=== PATIENT | female | born 1995 | race Hispanic/Latino ===

== ENCOUNTER 2018-10-09 09:28 | Emergency (ER) | payer OTHER ==
[2018-10-09 10:13] LABS: Absolute Lymphocytes (CBC) 1.4 K/uL (0.7-4.9); Absolute Monocytes 0.2 K/uL (0.1-1.3); Absolute Neutrophil 3.4 K/uL (1.8-8.0); Basophils % 0.7 % (0-1.3); Eosinophils % 2.2 % (0-4.4); Hematocrit 37.3 % (36.0-45.0); Lymphocytes % 27.5 % (15.3-44.8); MCH 25.7 pg (27.0-35.0); MCV 79.6 fL (80-100); MPV 10.2 fL (7.6-11.3); Monocytes % 4.7 % (3.3-12.3); RBC Red Blood Cell Count 4.69 M/uL (3.86-4.86)
[2018-10-09 10:44] LABS: BUN Blood Urea Nitrogen 8 mg/dL (7-18); Bicarbonate 24 mmol/L (21-32); Glucose Level 102 mg/dL (74-106); HCG, Quantitative 32919 mIU/mL (1-3); Potassium 3.8 mmol/L (3.5-5.1); Sodium Level 137 mmol/L (136-145)
--- NOTE | 2018-10-09 11:57 | ER ---
Nurse's Notes [facility] Name: Krishan Damian Age: 23 yrs Sex: Female : 1995 Arrival Date: 10/09/2018 Time: 09:31 Bed 5 Private MD: None, None Diagnosis: Threatened Presentation: 10/09 09:43 Presenting complaint: Patient states: is approx 13 weeks , had US to confirm iw on , started having heavy bleeding and cramping yesterday, bleeding has slowed down but still having pain today. Transition of care: patient was not received from another setting of care. Onset of symptoms was October 08, 2018. Risk Assessment: Do you want to hurt yourself or someone else? Patient reports no desire to harm self or others. Initial Sepsis Screen: Does the patient meet any 2 criteria? No. Patient's initial sepsis screen is negative. Does the patient have a suspected source of infection? No. Patient's initial sepsis screen is negative. Care prior to arrival: None. 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 - Social history:: Smoking status: Patient/guardian denies using tobacco. - Ebola Screening: : Patient negative for fever greater than or equal to 101.5 degrees Fahrenheit, and additional compatible Ebola Virus Disease symptoms Patient denies exposure to infectious person Patient denies travel to an Ebola-affected area in the 21 days before illness onset No symptoms or risks identified at this time. Screenin:00 Abuse screen: Denies threats or abuse. Denies injuries from another. Nutritional jl7 screening: No deficits noted. Tuberculosis screening: No symptoms or risk factors identified. Fall Risk IV access (20 points). Total Carvalho Fall Scale indicates No Risk (0-24 pts). Assessment: 10:00 General: Appears in no apparent distress. uncomfortable, Behavior is calm, cooperative, jl7 appropriate for age. Pain: Complains of pain in right lower quadrant and left lower quadrant Quality of pain is described as crampy, Pain began 2-3 days ago. Is continuous. Neuro: Level of Consciousness is awake, alert, obeys commands, Oriented to person, place, time, situation. Cardiovascular: Patient's skin is warm and dry. Respiratory: Airway is patent Respiratory effort is even, unlabored, Respiratory pattern is regular, symmetrical. GI: No signs and/or symptoms were reported involving the gastrointestinal system. : Urine is cloudy, Reports vaginal bleeding that is since Thursday. Derm: Skin is pink, warm \T\ dry. 11:00 Reassessment: No changes from previously documented assessment. Patient and/or family jl7 updated on plan of care and expected duration. Pain level reassessed. Patient is alert, oriented x 3, equal unlabored respirations, skin warm/dry/pink. Vital Signs: 09:45 BP 123 / 56; Pulse 83; Resp 16; Temp 98.2; Pulse Ox 100% on R/A; Weight 123.83 kg; iw Height 5 ft. 2 in. (157.48 cm); Pain 6/10; 11:48 BP 117 / 65; Pulse 72; Resp 16 S; Pulse Ox 100% on R/A; jl7 09:45 Body Mass Index 49.93 (123.83 kg, 157.48 cm) iw ED Course: 09:31 Patient arrived in ED. mr 09:31 None, None is Private Physician. mr 09:37 Stevie Weir PA is PHCP. jr8 09:37 Sriram Long MD is Attending Physician. jr8 09:40 Tommy Olivas RN is Primary Nurse. jl7 09:45 Triage completed. iw 09:45 Arm band placed on. iw 10:00 Patient has correct armband on for positive identification. Placed in gown. Bed in low jl7 position. Call light in reach. Side rails up X 1. Pulse ox on. NIBP on. Warm blanket given. 10:00 Initial lab(s) drawn, by me, sent to lab. Inserted saline lock: 22 gauge in right jl7 antecubital area, using aseptic technique. Blood collected. 11:41 Ultrasound completed. Patient tolerated well. sg3 11:48 Awaiting radiology results. jl7 11:49 US Transvaginal Ob In Process Unspecified. EDMS 12:08 No provider procedures requiring assistance completed. IV discontinued, intact, jl7 bleeding controlled, No redness/swelling at site. Pressure dressing applied. Administered Medications: No medications were administered Outcome: 11:57 Discharge ordered by . zeb 12:08 Discharged to home ambulatory. jlTrell 12:08 Condition: stable 12:08 Discharge instructions given to patient, family, Instructed on discharge instructions, follow up and referral plans. Demonstrated understanding of instructions, follow-up care. 12:12 Patient left the ED. [email or web address] Signatures: Dispatcher [employer] EDOK Eva Mota Irene, RN Stevie Hinson PA PA jr8 Leal, Jahala, RN RN jl7 Sujatha Monteiro sg3
--- NOTE | 2018-10-09 11:58 | EDPHYS ---
Physician Documentation [facility] Name: Krishan Damian Age: 23 yrs Sex: Female : 1995 Arrival Date: 10/09/2018 Time: 09:31 Bed 5 Private MD: None, None ED Physician Sriram Long HPI: 10/09 10:41 This 23 yrs old Female presents to ER via Ambulatory with complaints of 13 wks jr8 , Vaginal Bleeding. 10:41 The patient presents to the emergency department with abdominal pain, of the lower jr8 abdomen, described as crampy, vaginal bleeding, that is light, with clots. The estimated gestational age is 13 weeks. course: care: private OB physician. Previous pregnancies: in previous pregnancies patient has had. Associated signs and symptoms: The patient has no apparent associated signs or symptoms. The patient has not experienced similar symptoms in the past. The patient has not recently seen a physician. 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 - Social history:: Smoking status: Patient/guardian denies using tobacco. - Ebola Screening: : Patient negative for fever greater than or equal to 101.5 degrees Fahrenheit, and additional compatible Ebola Virus Disease symptoms Patient denies exposure to infectious person Patient denies travel to an Ebola-affected area in the 21 days before illness onset No symptoms or risks identified at this time. ROS: 10:41 Eyes: Negative for injury, pain, redness, and discharge, ENT: Negative for injury, jr8 pain, and discharge, Neck: Negative for injury, pain, and swelling, Cardiovascular: Negative for chest pain, palpitations, and edema, Respiratory: Negative for shortness of breath, cough, wheezing, and pleuritic chest pain, Back: Negative for injury and pain, MS/Extremity: Negative for injury and deformity, Skin: Negative for injury, rash, and discoloration, Neuro: Negative for headache, weakness, numbness, tingling, and seizure. 10:41 Abdomen/GI: Positive for abdominal cramps, Negative for nausea, vomiting, and diarrhea. 10:41 : Positive for vaginal bleeding. Exam: 10:41 Eyes: Pupils equal round and reactive to light, extra-ocular motions intact. Lids and jr8 lashes normal. Conjunctiva and sclera are non-icteric and not injected. Cornea within normal limits. Periorbital areas with no swelling, redness, or edema. ENT: Nares patent. No nasal discharge, no septal abnormalities noted. Tympanic membranes are normal and external auditory canals are clear. Oropharynx with no redness, swelling, or masses, exudates, or evidence of obstruction, uvula midline. Mucous membranes moist. Neck: Trachea midline, no thyromegaly or masses palpated, and no cervical lymphadenopathy. Supple, full range of motion without nuchal rigidity, or vertebral point tenderness. No Meningismus. Cardiovascular: Regular rate and rhythm with a normal S1 and S2. No gallops, murmurs, or rubs. Normal PMI, no JVD. No pulse deficits. Respiratory: Lungs have equal breath sounds bilaterally, clear to auscultation and percussion. No rales, rhonchi or wheezes noted. No increased work of breathing, no retractions or nasal flaring. Abdomen/GI: Soft, non-tender, with normal bowel sounds. No distension or tympany. No guarding or rebound. No evidence of tenderness throughout. Back: No spinal tenderness. No costovertebral tenderness. Full range of motion. Skin: Warm, dry with normal turgor. Normal color with no rashes, no lesions, and no evidence of cellulitis. MS/ Extremity: Pulses equal, no cyanosis. Neurovascular intact. Full, normal range of motion. Neuro: Awake and alert, GCS 15, oriented to person, place, time, and situation. Cranial nerves II-XII grossly intact. Motor strength 5/5 in all extremities. Sensory grossly intact. Cerebellar exam normal. Normal gait. Vital Signs: 09:45 BP 123 / 56; Pulse 83; Resp 16; Temp 98.2; Pulse Ox 100% on R/A; Weight 123.83 kg; iw Height 5 ft. 2 in. (157.48 cm); Pain 6/10; 11:48 BP 117 / 65; Pulse 72; Resp 16 S; Pulse Ox 100% on R/A; jl7 09:45 Body Mass Index 49.93 (123.83 kg, 157.48 cm) iw MDM: 09:37 Patient medically screened. jr8 11:57 Data reviewed: vital signs, nurses notes, lab test result(s), radiologic studies, jr8 ultrasound, and as a result, I will discharge patient. Data interpreted: Pulse oximetry: on room air is 100 %. Interpretation: normal. Counseling: I had a detailed discussion with the patient and/or guardian regarding: the historical points, exam findings, and any diagnostic results supporting the discharge/admit diagnosis, lab results, radiology results, the need for outpatient follow up, an OB/Gyne specialist, to return to the emergency department if symptoms worsen or persist or if there are any questions or concerns that arise at home. 10/09 09:45 Order name: Quantitative Hcg; Complete Time: 10:47 10/09 09:45 Order name: Abo/rh Typing; Complete Time: 10:25 10/09 09:45 Order name: Basic Metabolic Panel; Complete Time: 10:47 10/09 09:45 Order name: CBC with Diff; Complete Time: 10:25 10/09 09:56 Order name: Urine Dipstick--Ancillary (enter results) eb 10/09 09:56 Order name: Urine --Ancillary (enter results) eb 10/09 09:45 Order name: Urine Test (obtain specimen); Complete Time: 10:39 10/09 09:45 Order name: IV Saline Lock; Complete Time: 10:39 10/09 09:45 Order name: Labs collected and sent; Complete Time: 10:39 10/09 09:45 Order name: NPO; Complete Time: 10:39 10/09 09:45 Order name: Urine Dipstick-Ancillary (obtain specimen); Complete Time: 10:39 10/09 10:48 Order name: US Transvaginal Ob jr8 Administered Medications: No medications were administered Disposition: 16:35 Co-signature as Attending Physician, Sriram Long MD. Disposition: 10/09/18 11:57 Discharged to Home. Impression: Threatened . - Condition is Stable. - Discharge Instructions: Threatened Miscarriage, Vaginal Bleeding During , First Trimester, Pelvic Rest. - Medication Reconciliation Form, Thank You Letter, Antibiotic Education, Prescription Opioid Use form. - Follow up: Private Physician; When: 2 - 3 days; Reason: Recheck today's complaints, Continuance of care, Re-evaluation by your physician. - Problem is new. - Symptoms have improved. Signatures: Dispatcher [employer] EDMS Soumya Lutz RN RN Stevie Mclean PA PA jr8 Tommy Olivas RN RN jl7 Sriram Long MD MD gs Corrections: (The following items were deleted from the chart) 12:12 11:57 10/09/2018 11:57 Discharged to Home. Impression: Threatened . Condition jl7 is Stable. Forms are Medication Reconciliation Form, Thank You Letter, Antibiotic Education, Prescription Opioid Use. Follow up: Private Physician; When: 2 - 3 days; Reason: Recheck today's complaints, Continuance of care, Re-evaluation by your physician. Problem is new. Symptoms have improved. jr8
[2018-10-09 12:18] VITALS: TEMP 98.2; O2SAT 100
[2018-10-09 12:19] VITALS: BP 117/65
[2018-10-09 12:37] LABS: Urine Blood 2+ (NEG); Urine Glucose NEGATIVE (NEG); Urine Protein NEGATIVE (NEG)
--- NOTE | 2018-10-09 12:40 | RAD REPORT ---
EXAM DESCRIPTION: US - Transvaginal OB - 10/09/2018 11:50 am CLINICAL HISTORY: with vaginal bleeding COMPARISON: None. FINDINGS: The uterus measures 12 x 7 x 8 centimeters. A gestational sac is present within the endom etrium. Within this is a yolk sac and pole with a crown-rump length 4.6centimeters. Cardiac act ivity 157 beats per minute The left ovary is normal in size and echotexture containing a small follicle. The right ovary is not seen. No significant free fluid is seen. IMPRESSION: Single live intrauterine with an estimated gestational age 11 weeks 3 days ED D 04/27/2019
== END 2018-10-09 12:12 | disposition home or self-care (01) ==
LOC: ER 09:28
DX: O20.0 Threatened abortion (principal); O99.511 Diseases of the respiratory system complicating pregnancy, first trimester; J45.909 Unspecified asthma, uncomplicated; Z3A.13 13 weeks gestation of pregnancy; Z79.899 Other long term (current) drug therapy
CPT/HCPCS: 36415; 76817; 80048; 81003; 81025; 84702; 85025; 86900; 86901; 99284

== ENCOUNTER 2019-02-16 20:22 | Emergency (ER) | payer OTHER ==
--- OUTSIDE RECORDS SUMMARY | 2019-02-16 20:54 | XMS REPORT ---
:1995 [facility] Address [address] [place] [address] Dr. Waters [address] [place] [id number] Care Team Providers Name Role Phone Unavailable Unavailable Unavailable Problems This patient has no known problems. Allergies, Adverse Reactions, Alerts This patient has no known allergies or adverse reactions. Medications This patient has no known medications.
--- NOTE | 2019-02-16 21:07 | ER ---
Nurse's Notes [facility] Name: Krishan Damian Age: 23 yrs Sex: Female : 1995 Arrival Date: 02/16/2019 Time: 20:28 Bed DIS1 Private MD: Sandra eHin C Diagnosis: Gingivitis and periodontal diseases;Stomatitis and related lesions Presentation: 02/16 20:50 Presenting complaint: Mother states: Mouth sores and severe sore throat for 1 week. tl2 Tested for strep one week ago and it was negative. Pt states she cant eat or drink anything. Reports low grade fever and vomiting. Transition of care: patient was not received from another setting of care. Onset of symptoms was February 09, 2019. Risk Assessment: Do you want to hurt yourself or someone else? Patient reports no desire to harm self or others. Initial Sepsis Screen: Does the patient meet any 2 criteria? No. Patient's initial sepsis screen is negative. Does the patient have a suspected source of infection? No. Patient's initial sepsis screen is negative. Care prior to arrival: None. 20:50 Method Of Arrival: Ambulatory tl2 20:50 Acuity: CRISTHIAN 4 tl2 Triage Assessment: 20:52 General: Appears in no apparent distress. uncomfortable, Behavior is calm, cooperative, tl2 appropriate for age. 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 - Social history:: Smoking status: Patient/guardian denies using tobacco. - Ebola Screening: : No symptoms or risks identified at this time. Screenin:00 Abuse screen: Denies threats or abuse. Denies injuries from another. Nutritional lp1 screening: No deficits noted. Tuberculosis screening: No symptoms or risk factors identified. Fall Risk None identified. Assessment: 20:54 Respiratory: Respiratory effort is. tl2 21:00 General: Appears in no apparent distress. Behavior is appropriate for age. Pain: lp1 Complains of pain in mouth. Neuro: Level of Consciousness is awake, alert, obeys commands. Cardiovascular: No deficits noted. Respiratory: Airway is patent Respiratory effort is even, unlabored, Respiratory pattern is regular. GI: Reports nausea. : No signs and/or symptoms were reported regarding the genitourinary system. EENT: Lesions noted. Throat is clear. Derm: Skin is pink, warm \T\ dry. Musculoskeletal: No deficits noted. Vital Signs: 20:52 BP 130 / 86; Pulse 103; Resp 20; Temp 98.7(O); Pulse Ox 99% on R/A; Weight 126.55 kg; tl2 Height 5 ft. 2 in. (157.48 cm); Pain 8/10; 20:52 Body Mass Index 51.03 (126.55 kg, 157.48 cm) tl2 ED Course: 20:28 Patient arrived in ED. am2 20:28 Sandra Hein FNP is Private Physician. am2 20:33 Zahida Sanches FNP-C is [facility]. snw 20:33 Av Moon MD is Attending Physician. snw 20:51 Triage completed. tl2 20:52 Arm band placed on right wrist. tl2 21:00 Patient has correct armband on for positive identification. lp1 21:00 No provider procedures requiring assistance completed. Patient did not have IV access lp1 during this emergency room visit. 21:06 Melanie Babcock, RN is Primary Nurse. lp1 Administered Medications: 21:25 Drug: GI Cocktail without - (Maalox Suspension 30 ml, Lidocaine Liquid 2 % 15 lp1 ml) Route: PO; 21:35 Follow up: Response: No adverse reaction; Marked relief of symptoms lp1 Outcome: 21:06 Discharge ordered by . snw 21:30 Discharged to home ambulatory. lp1 21:30 Condition: good 21:30 Discharge instructions given to patient, Instructed on discharge instructions, follow up and referral plans. medication usage, Demonstrated understanding of instructions, follow-up care, medications, Prescriptions given X 1. 21:35 Patient left the ED. lp1 Signatures: Zahida Sanches FNP-C MEDICAL AIDE-CsnMelanie Martinez RN RN lp1 Susan Weinstein RN RN tl2 Falguni Madrid am2 Corrections: (The following items were deleted from the chart) 22:11 22:10 Patient left the ED. lp1 lp1
--- NOTE | 2019-02-16 21:07 | EDPHYS ---
Physician Documentation [facility] Name: Krishan Damian Age: 23 yrs Sex: Female : 1995 Arrival Date: 02/16/2019 Time: 20:28 Bed DIS1 Private MD: Sandra Hein C ED Physician Av Moon HPI: 02/16 21:14 This 23 yrs old Female presents to ER via Ambulatory with complaints of Sore snw Throat, Mouth Problem - sores, Fever. 21:14 The patient presents with sore throat. The patient describes throat pain as raw. Onset: snw The symptoms/episode began/occurred 1 week(s) ago, and became persistent. Severity of symptoms: At their worst the symptoms were moderate. Associated signs and symptoms: Pertinent positives: dysphagia. It is unknown whether or not the patient has had similar symptoms in the past, Daughter with similar s/s. The patient has been recently seen by a physician: with similar presenting complaints, lab tests were done, strep negative. 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 - Social history:: Smoking status: Patient/guardian denies using tobacco. - Ebola Screening: : No symptoms or risks identified at this time. ROS: 21:13 Constitutional: Negative for fever, chills, and weight loss, Eyes: Negative for injury, snw pain, redness, and discharge, ENT: Negative for injury and discharge, + mouth pain, ulcers Neck: Negative for injury, pain, and swelling, Cardiovascular: Negative for chest pain, palpitations, and edema, Respiratory: Negative for shortness of breath, cough, wheezing, and pleuritic chest pain, Abdomen/GI: Negative for abdominal pain, nausea, vomiting, diarrhea, and constipation, Back: Negative for injury and pain, : Negative for injury, bleeding, discharge, and swelling, MS/Extremity: Negative for injury and deformity, Skin: Negative for injury, rash, and discoloration, Neuro: Negative for headache, weakness, numbness, tingling, and seizure. Exam: 21:04 Constitutional: This is a well developed, well nourished patient who is awake, alert, snw and in no acute distress. Head/Face: Normocephalic, atraumatic. Eyes: Pupils equal round and reactive to light, extra-ocular motions intact. Lids and lashes normal. Conjunctiva and sclera are non-icteric and not injected. Cornea within normal limits. Periorbital areas with no swelling, redness, or edema. Neck: Trachea midline, no thyromegaly or masses palpated, and no cervical lymphadenopathy. Supple, full range of motion without nuchal rigidity, or vertebral point tenderness. No Meningismus. Chest/axilla: Normal chest wall appearance and motion. Nontender with no deformity. No lesions are appreciated. Cardiovascular: Regular rate and rhythm with a normal S1 and S2. No gallops, murmurs, or rubs. Normal PMI, no JVD. No pulse deficits. Respiratory: Lungs have equal breath sounds bilaterally, clear to auscultation and percussion. No rales, rhonchi or wheezes noted. No increased work of breathing, no retractions or nasal flaring. Abdomen/GI: Soft, non-tender, with normal bowel sounds. No distension or tympany. No guarding or rebound. No evidence of tenderness throughout. Back: No spinal tenderness. No costovertebral tenderness. Full range of motion. Skin: Warm, dry with normal turgor. Normal color with no rashes, no lesions, and no evidence of cellulitis. MS/ Extremity: Pulses equal, no cyanosis. Neurovascular intact. Full, normal range of motion. Neuro: Awake and alert, GCS 15, oriented to person, place, time, and situation. Cranial nerves II-XII grossly intact. Motor strength 5/5 in all extremities. Sensory grossly intact. Cerebellar exam normal. Normal gait. Psych: Awake, alert, with orientation to person, place and time. Behavior, mood, and affect are within normal limits. 21:04 ENT: External ear(s): are unremarkable, Ear canal(s): are normal, TM's: are normal, Nose: is normal, Mouth: Oral mucosa: noted to have obvious stomatitis, Posterior pharynx: Airway: normal, Tonsils: with ulcerations, Uvula: erythema, Voice: is normal. 21:04 ENT: Dental exam: gum swelling, that is severe, diffusely. Vital Signs: 20:52 BP 130 / 86; Pulse 103; Resp 20; Temp 98.7(O); Pulse Ox 99% on R/A; Weight 126.55 kg; tl2 Height 5 ft. 2 in. (157.48 cm); Pain 8/10; 20:52 Body Mass Index 51.03 (126.55 kg, 157.48 cm) tl2 MDM: 20:48 Patient medically screened. snw 21:07 Data reviewed: vital signs, nurses notes. Data interpreted: Pulse oximetry: on room air snw is 99 %. Interpretation: normal. Counseling: I had a detailed discussion with the patient and/or guardian regarding: the historical points, exam findings, and any diagnostic results supporting the discharge/admit diagnosis, the need for outpatient follow up, for definitive care, to return to the emergency department if symptoms worsen or persist or if there are any questions or concerns that arise at home. Special discussion: I have referred the patient to see his PCP for further evaluation of high blood pressure. Based on the history and exam findings, there is no indication for further emergent testing or inpatient evaluation. I discussed with the patient/guardian the need to see the primary care provider for further evaluation of the symptoms. Administered Medications: 21:25 Drug: GI Cocktail without - (Maalox Suspension 30 ml, Lidocaine Liquid 2 % 15 lp1 ml) Route: PO; 21:35 Follow up: Response: No adverse reaction; Marked relief of symptoms lp1 Disposition: 02/17 02:08 Co-signature as Attending Physician, Av Moon MD. rn Disposition: 02/16/19 21:06 Discharged to Home. Impression: Gingivitis and periodontal diseases, Stomatitis and related lesions. - Condition is Stable. - Discharge Instructions: Gingivitis, Stomatitis, Rehydration, Adult, [place] Diet. - Prescriptions for chlorhexidine gluconate 0.12 % Mucous Membrane mouthwash - place 15 milliliter by MUCOUS MEMBRANE route 2 times per day after brushing teeth, swish in mouth for 30 seconds then spit out; 480 milliliter. - Medication Reconciliation Form, Thank You Letter, Antibiotic Education, Prescription Opioid Use form. - Follow up: Private Physician; When: 2 - 3 days; Reason: Recheck today's complaints, Continuance of care, Re-evaluation by your physician. Follow up: Emergency Department; When: As needed; Reason: Worsening of condition. Signatures: Zahida Sanches, BUDGET OFFICER-C BUDGET OFFICER-Csnw Av Moon MD MD rn Melanie Babcock RN RN lp1 Susan Weinstein RN RN tl2 Corrections: (The following items were deleted from the chart) 02/16 22:10 21:06 02/16/2019 21:06 Discharged to Home. Impression: Gingivitis and periodontal lp1 diseases; Stomatitis and related lesions. Condition is Stable. Forms are Medication Reconciliation Form, Thank You Letter, Antibiotic Education, Prescription Opioid Use. Follow up: Private Physician; When: 2 - 3 days; Reason: Recheck today's complaints, Continuance of care, Re-evaluation by your physician. Follow up: Emergency Department; When: As needed; Reason: Worsening of condition. snw
[2019-02-16] MEDS ORDERED: LIDOCAINE VISCOUS 2% SOLN 15 ML UDC ONE (21:27)
[2019-02-16] MEDS ORDERED: MAGNE/ALUM HYDROXD 30 ML UCUP ONE (21:27)
[2019-02-16 22:30] VITALS: BP 130/86; TEMP 98.7; O2SAT 99
== END 2019-02-16 22:10 | disposition home or self-care (01) ==
LOC: ER 20:22
DX: K12.1 Other forms of stomatitis (principal); K05.10 Chronic gingivitis, plaque induced; K05.5 Other periodontal diseases; J45.909 Unspecified asthma, uncomplicated; Z3A.29 29 weeks gestation of pregnancy
CPT/HCPCS: 99283

== ENCOUNTER 2019-12-02 18:49 | Emergency (ER) | payer OTHER, SELFPAY ==
--- OUTSIDE RECORDS SUMMARY | 2019-12-02 18:52 | XMS REPORT ---
:1995 Author Organization [facility] Address [address] [place] [address] Dr. Waters [address] [place] [id number] Care Team Providers Name Role Phone Unavailable Unavailable Unavailable Problems This patient has no known problems. Allergies, Adverse Reactions, Alerts This patient has no known allergies or adverse reactions. Medications This patient has no known medications.
[2019-12-02] MEDS ORDERED: ONDANSETRON 4 MG (ODT) TAB ONE (19:37)
[2019-12-02 20:00] LABS: Urine Blood NEGATIVE (NEG); Urine Glucose NEGATIVE (NEG); Urine Protein TRACE (NEG); Urine Specific Gravity >1.030 (1.005-1.030)
[2019-12-02 20:30] LABS: Urine Bacteria >50 /HPF (<20)
[2019-12-02 20:31] LABS: Urine Culture Reflex Order NOT NEEDED; Urine Mucus 2+ /HPF (NONE SEEN)
--- NOTE | 2019-12-02 20:39 | ER ---
Nurse's Notes [facility] Name: Krishan Damian Age: 24 yrs Sex: Female : 1995 Arrival Date: 12/02/2019 Time: 18:52 Bed 14 Private MD: Diagnosis: related conditions, unspecified;Nausea and vomiting;Urinary tract infection, site not specified Presentation: 12/02 19:03 Presenting complaint: Patient states: i have been vomiting for 3 days now. Im concerned mg2 that I am . LMP- jul. denies pain. Transition of care: patient was not received from another setting of care. Onset of symptoms was November 30, 2019. Risk Assessment: Do you want to hurt yourself or someone else? Patient reports no desire to harm self or others. Initial Sepsis Screen: Does the patient meet any 2 criteria? No. Patient's initial sepsis screen is negative. Does the patient have a suspected source of infection? No. Patient's initial sepsis screen is negative. Care prior to arrival: None. 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 - Social history:: Smoking status: Patient/guardian denies using tobacco, Patient/guardian denies using alcohol, street drugs, IV drugs. - Ebola Screening: : No symptoms or risks identified at this time. Screenin:49 Abuse screen: Denies threats or abuse. Denies injuries from another. Nutritional mg2 screening: No deficits noted. Tuberculosis screening: No symptoms or risk factors identified. Fall Risk None identified. Assessment: 19:48 General: Appears in no apparent distress. comfortable, Behavior is calm, cooperative. mg2 Pain: Denies pain. Neuro: Level of Consciousness is awake, alert, obeys commands, Oriented to person, place, time, situation. Cardiovascular: Capillary refill < 3 seconds Patient's skin is warm and dry. Respiratory: Airway is patent Respiratory effort is even, unlabored, Respiratory pattern is regular, symmetrical. GI: Abdomen is round non-distended, Reports vomiting, since 3 dfays ago. : Urine is clear. EENT: No signs and/or symptoms were reported regarding the EENT system. Derm: Skin is intact, is healthy with good turgor, Skin is pink, warm \T\ dry. normal. Musculoskeletal: Circulation, motion, and sensation intact. Capillary refill < 3 seconds. 20:54 Reassessment: Patient appears in no apparent distress at this time. Patient and/or mg2 family updated on plan of care and expected duration. Pain level reassessed. Patient is alert, oriented x 3, equal unlabored respirations, skin warm/dry/pink. Vital Signs: 19:05 BP 125 / 68; Pulse 88; Resp 18; Temp 97.8; Pulse Ox 96% on R/A; Weight 122.47 kg; mg2 Height 5 ft. 1 in. (154.94 cm); Pain 0/10; 20:54 BP 122 / 80; Pulse 81; Resp 18; Temp 98; Pulse Ox 100% on R/A; mg2 19:05 Body Mass Index 51.02 (122.47 kg, 154.94 cm) mg2 ED Course: 18:52 Patient arrived in ED. rg4 18:57 Delroy Hassan RN is Primary Nurse. mg2 18:58 Sharan Aquino PA is PHCP. cp 18:58 Torres Orantes MD is Attending Physician. cp 19:05 Triage completed. mg2 19:07 Arm band placed on. mg2 19:49 Patient has correct armband on for positive identification. mg2 19:49 No provider procedures requiring assistance completed. Patient did not have IV access mg2 during this emergency room visit. Administered Medications: 19:35 Drug: Zofran 4 mg Route: PO; mg2 20:49 Follow up: Response: No adverse reaction; Marked relief of symptoms mg2 Outcome: 20:37 Discharge ordered by . cp 20:54 Discharged to home ambulatory. mg2 20:54 Condition: stable 20:54 Discharge instructions given to patient, Instructed on discharge instructions, follow up and referral plans. medication usage, Demonstrated understanding of instructions, follow-up care, medications, Prescriptions given X 3. 20:55 Patient left the ED. mg2 Signatures: Sharan Aquino PA PA cp Garcia, Rubi rg4 Delroy Hassan, RN RN mg2
--- NOTE | 2019-12-02 20:40 | EDPHYS ---
Physician Documentation [facility] Name: Krishan Damian Age: 24 yrs Sex: Female : 1995 Arrival Date: 12/02/2019 Time: 18:52 Bed 14 Private MD: ED Physician Torres Orantes HPI: 12/02 19:11 This 24 yrs old Female presents to ER via Ambulatory with complaints of cp Vomiting. 19:11 The patient presents to the emergency department with vomiting, 2 times today, cp described as bilious. Onset: The symptoms/episode began/occurred 3 day(s) ago. Possible causes: . Associated signs and symptoms: Pertinent positives: urinary frequency, Pertinent negatives: abdominal pain, constipation, diarrhea, fever, GI bleeding. Severity of symptoms: in the emergency department the symptoms are unchanged despite home interventions. 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 - Social history:: Smoking status: Patient/guardian denies using tobacco, Patient/guardian denies using alcohol, street drugs, IV drugs. - Ebola Screening: : No symptoms or risks identified at this time. ROS: 19:12 Constitutional: Negative for body aches, chills, fever, poor PO intake. cp 19:12 Eyes: Negative for injury, pain, redness, and discharge. cp 19:12 ENT: Negative for drainage from ear(s), ear pain, sore throat, difficulty swallowing, difficulty handling secretions. 19:12 Cardiovascular: Negative for chest pain. 19:12 Respiratory: Negative for cough, wheezing. 19:12 Abdomen/GI: Positive for nausea and vomiting, Negative for abdominal pain, diarrhea, constipation, anorexia. 19:12 Back: Negative for pain at rest, pain with movement, radiated pain. 19:12 : Positive for urinary frequency, Negative for pelvic pain, flank pain, burning with urination, vaginal bleeding, vaginal discharge. 19:12 Skin: Negative for rash. 19:12 Neuro: Negative for altered mental status, headache, weakness. 19:12 All other systems are negative. Exam: 19:20 Constitutional: The patient appears in no acute distress, alert, awake, non-toxic, well cp developed, well nourished, obese. 19:20 Head/Face: Normocephalic, atraumatic. cp 19:20 Eyes: Periorbital structures: appear normal, Conjunctiva: normal, no exudate, no injection, Sclera: no appreciated abnormality, Lids and lashes: appear normal, bilaterally. 19:20 ENT: External ear(s): are unremarkable, Nose: is normal, Mouth: Lips: moist, Oral mucosa: moist, Posterior pharynx: Airway: no evidence of obstruction, patent. 19:20 Chest/axilla: Inspection: normal. 19:20 Cardiovascular: Rate: normal, Rhythm: regular. 19:20 Respiratory: the patient does not display signs of respiratory distress, Respirations: normal, no use of accessory muscles, labored breathing, is not present, Breath sounds: are clear throughout. 19:20 Abdomen/GI: Inspection: obese Bowel sounds: active, all quadrants, Palpation: abdomen is soft and non-tender, in all quadrants, rebound tenderness, is not appreciated, voluntary guarding, is not appreciated, involuntary guarding, is not appreciated. 19:20 Back: pain, is absent. Vital Signs: 19:05 BP 125 / 68; Pulse 88; Resp 18; Temp 97.8; Pulse Ox 96% on R/A; Weight 122.47 kg; mg2 Height 5 ft. 1 in. (154.94 cm); Pain 0/10; 20:54 BP 122 / 80; Pulse 81; Resp 18; Temp 98; Pulse Ox 100% on R/A; mg2 19:05 Body Mass Index 51.02 (122.47 kg, 154.94 cm) mg2 MDM: 19:03 Patient medically screened. cp 20:37 Data reviewed: vital signs, nurses notes, lab test result(s), and as a result, I will cp discharge patient. 20:37 Counseling: I had a detailed discussion with the patient and/or guardian regarding: the cp historical points, exam findings, and any diagnostic results supporting the discharge/admit diagnosis, lab results, the need for outpatient follow up, an OB/Gyne specialist, to return to the emergency department if symptoms worsen or persist or if there are any questions or concerns that arise at home. Response to treatment: the patient's symptoms have mildly improved after treatment, and as a result, I will discharge patient. 12/02 19:14 Order name: Urine Microscopic Only; Complete Time: 20:35 cp 12/02 20:35 Interpretation: Normal except: UWBC 5-10; URBC 5-10; UBACT >50; SQEPI 20-50. cp 12/02 19:31 Order name: Urine Dipstick--Ancillary (enter results); Complete Time: 20:30 cm6 12/02 20:30 Interpretation: Normal except: UKET 2+; UESTR TRACE. cp 12/02 19:31 Order name: Urine --Ancillary (enter results); Complete Time: 20:30 cm6 12/02 20:30 Interpretation: Abnormal: URINE PREG POS; Reviewed. cp 12/02 19:34 Order name: Glucose, Ancillary Testing; Complete Time: 19:35 EDMS 12/02 19:35 Interpretation: Reviewed. 12/02 20:35 Order name: Urine Culture cp 12/02 19:14 Order name: Urine Dipstick-Ancillary (obtain specimen); Complete Time: 19:32 cp 12/02 19:14 Order name: Urine Test (obtain specimen); Complete Time: 19:32 cp 12/02 19:14 Order name: Accucheck Blood Glucose; Complete Time: 19:31 cp 12/02 19:14 Order name: PO challenge; Complete Time: 20:05 cp Administered Medications: 19:35 Drug: Zofran 4 mg Route: PO; mg2 20:49 Follow up: Response: No adverse reaction; Marked relief of symptoms mg2 Disposition: 12/02/19 20:37 Discharged to Home. Impression: related conditions, unspecified, Nausea and vomiting, Urinary tract infection, site not specified. - Condition is Stable. - Discharge Instructions: Nausea and Vomiting, Adult, and Urinary Tract Infection. - Prescriptions for Diclegis 10- 10 mg Oral tablet,delayed release (DR/EC) - take 1 tablet by ORAL route 2-3 times daily prior to meals and 2 tablets at bedtime; 30 tablet. Vitamin 27- 0.8 mg Oral Tablet - take 1 tablet by ORAL route once daily; 30 tablet. Macrobid 100 mg Oral Capsule - take 1 capsule by ORAL route every 12 hours for 7 days; 14 capsule. - Medication Reconciliation Form, Thank You Letter, Antibiotic Education, Prescription Opioid Use form. - Follow up: Private Physician; When: 1 week; Reason: Recheck today's complaints. - Problem is new. - Symptoms have improved. Addendum: 12/05/2019 06:46 Co-signature as Attending Physician, Torres Orantes MD I agree with the assessment and k dr plan of care. Signatures: Dispatcher [employer] EDWY Torres Orantes MD MD [facility] Sharan Aquino PA PA cp Delroy Hassan, RN RN mg2 Corrections: (The following items were deleted from the chart) 12/02 20:55 20:37 12/02/2019 20:37 Discharged to Home. Impression: related conditions, mg2 unspecified; Nausea and vomiting; Urinary tract infection, site not specified. Condition is Stable. Forms are Medication Reconciliation Form, Thank You Letter, Antibiotic Education, Prescription Opioid Use. Follow up: Private Physician; When: 1 week; Reason: Recheck today's complaints. Problem is new. Symptoms have improved. cp
[2019-12-02 22:15] VITALS: BP 122/80; TEMP 98; O2SAT 100
== END 2019-12-02 20:55 | disposition home or self-care (01) ==
LOC: ER 18:49
DX: O23.40 Unspecified infection of urinary tract in pregnancy, unspecified trimester (principal); Z3A.00 Weeks of gestation of pregnancy not specified
CPT/HCPCS: 81003; 81015; 81025; 82947; 87086; 87088; 99283

== ENCOUNTER 2023-04-27 19:04 | Emergency (ER) | payer OTHER ==
--- OUTSIDE RECORDS SUMMARY | 2023-04-27 19:07 | XMS REPORT | Continuity of Care Document ---
:1995 Author Organization [facility] t Address [address] [place] [address] Care Team Providers Name Role Phone Jennifer Hein Primary Care Physician SANDY RUIZ Attending Clinician Unavailable Doctor Unassigned, [place] Attending Clinician Unavailable ARCADIO MCCALLUM Attending Clinician Unavailable ARLYN LADD Attending Clinician Unavailable DONTE SANCHEZ Attending Clinician Unavailable SIMON ENCARNACION Attending Clinician Unavailable BISMARK GALICIA Attending Clinician Unavailable SANDY RUIZ Admitting Clinician Unavailable Payers Payer Name Policy Type Policy Number Effective Date Expiration Date [facility] [id number] 2020 [facility] [employer] 00:00:00 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 00:00: [place] [address] Medical Branch Bipolar Bipolar Disease Active 2017-11 Univers affective affective 1-08 ity of disorder, disorder, 00:00: Korin marcus currently currently 00 Medi becca depressed, depressed, Br anch moderate moderate Obesity, Obesity, Disease Active 2017-11 Unive rs Class III, Class III, 1-08 it y of BMI BMI 00:00: [place] 40-49.9 40-49.9 00 Medical (morbid (morbid Branch obesity) obesity) Allergies, Adverse Reactions, Alerts Allergy Allergy Status Severity Reaction(s) Onset Inactive Treating Comm ents Source Name Type Date Date Clinician NO KNOWN Drug Active Univers ALLERGIE Class ity of S [facility] Social History Social Habit Start Date Stop Date Quantity Comments Source Alcohol intake 2020-07-18 2020-07-18 Current University of 00:00:00 00:00:00 non-drinker of [facility] alcohol (finding) Branch Tobacco use and 2018-10-07 2018-10-07 Smokeless tobacco Un iversity of exposure 00:00:00 00:00:00 non-user [facility] History of 2014-10-07 Cigarette Smoker Universi ty of tobacco use 00:00:00 [facility] Sex Ass[birth year] Universit y of 00:00:00 00:00:00 [facility] Smoking Status Start Date Stop Date Source Ex-smoker 2018-10-07 00:00:00 2018-10-07 00:00:00 Universi ty of [facility] Medications Ordered Filled Start Stop Current Ordering Indication Dosage Frequency Signature Comments Components Source Medication Medication Date Date Medication? Clinician (SIG) Name Name albuterol Yes 1{ampul Use 1 Univ ers 2.5 mg/0.5 8-18 e} Ampule as ity of mL 11:38: directed [place] nebulizer 24 every 6 Medical solution (six) Branch hours as needed for Wheezing. ibuprofen 2019- Yes [id number] 600mg Take 1 Univers 600 mg 8-18 tablet by ity of tablet 00:00: mouth [place] 00 every 6 Medical (six) Branch hours as needed for Pain (scale 1-3) or Pain (scale 4-6). albuterol 2019-0 Yes [id number] 2{puff} Inhale 2 Univers 90 8-06 Puffs ity of mcg/actuati 00:00: every 6 [place] as on inhaler 00 (six) Medical hours as Branch needed for Wheezing or Shortness of Breath. fluticasone 2019-0 Yes 2{spray Use 2 Un gabriel propionate 06 } Sprays in ity of 50 00:00: each [place] mcg/actuati 00 nostril Medic al on nasal daily. Branch spray magnesium 2019- Yes [id number] 400mg Take 1 Univers oxide 400 8-03 tablet by ity o f mg (241.3 00:00: mouth [place] mg 00 daily. Medical magnesium) Branch tablet ferrous 2019- Yes [id number] 325mg Take 1 Uni vers sulfate 325 6-27 tablet by ity of mg (65 mg 00:00: mouth [place] iron) 00 daily. Medical tablet Branch ibuprofen 2019- Yes [id number] 600mg Take 1 U nivers 600 mg 6-27 tablet by ity of tablet 00:00: mouth [place] 00 every 6 Medical (six) Branch hours as needed (Pain). Take with food or milk. SERTraline 2019- Yes [id number] 25mg Take 1 U nivers (ZOLOFT) 25 5-13 tablet by ity of mg tablet 00:00: mouth [place] 00 daily. Medical Branch lurasidone Yes [id number] 20mg Take 1 U nivers (LATUDA) 20 5-13 tablet by ity of mg tablet 00:00: mouth [place] 00 daily. Medical Take with Branch food. PNV Yes [id number] Take 1 Univers 102-iron-fo 3-19 TAB-CAP/M2 it y of late 00:00: by mouth [place] 1-dss-dha 00 daily. Medical (VITAFOL Branch FE+, WITH DOCUSATE,) 90 mg iron-1 mg -50 mg-200 mg Cap budesonide- 2018- Yes [id number] 2{puff} Inhale 2 Univers formoterol 1-16 Puffs ity of (SYMBICORT) 00:00: daily. [place] 160-4.5 Medical mcg/actuati Branch on inhaler Peak Flow 2017-11 Yes Use as Univer s Meter Lynnette 08 directed ity o f 00:00: [place] 00 [facility] Immunizations Ordered Filled Immunization Date Status Comments Sour e Immunization Name Name Rho (d) Immune 2020-05-26 Completed University of Globulin 00:00:00 [facility] TDAP (ADACEL) 2020-03-12 Completed University of VACCINE 00:00:00 [facility] Rho (d) Immune 2020-03-12 Completed University of Globulin 00:00:00 [facility] Influenza Virus 2020-02-16 Completed Universit y of Vaccine Quad .5 mL 00:00:00 [facility] [place] 6+ MO Branch Rho (d) Immune 2019-04-23 Completed University of Globulin 00:00:00 [facility] Rho (d) Immune 2019-04-21 Completed University of Globulin 00:00:00 [facility] Influenza Virus 2018-10-07 Completed Universit y of Vaccine [place] .5 mL 00:00:00 [facility] [place] 6+ MO Branch TDAP 2016-10-22 Completed University of 00:00:00 [facility] Procedures Procedure Date / Time Performing Clinician Source Performed AUTHORIZATION FOR 2022-06-27 05:01:00 Doctor Unassigned, No Univ [facility] RELEASE OF PHI Name [facility] Encounters Start End Encounter Admission Attending Care Care Encounter Source Date/Time Date/Time Type Type Clinicians Facility Department ID 2021-09-27 Outpatient SANDY RUIZ [facility] [id number] Univers 11:39:57 ity of [facility] 2021-09-27 Emergency [facility] [id number] Univers 03:00:06 ity of [facility] 2022-06-27 2022-06-27 Orders Doctor CAROLYN [id number] Univers 00:00:00 00:00:00 Only Unassigned, TRISTA [id number] ity of [place] [facility] [id number] [place] [id number] [address] 2020-07-16 2020-07-16 Outpatient R [facility] [id number] Univers 10:15:00 10:15:00 ity of [facility] 2020-06-29 2020-06-29 Outpatient R SANDY RUIZ [facility] [id number] Univers 15:00:00 15:00:00 ity of [facility] 2020-06-27 2020-06-27 Outpatient R XENA [facility] [id number] Univers 13:45:00 13:45:00 ARCADIO ity of [facility] 2020-06-15 2020-06-15 Outpatient R SANDY RUIZ [facility] [id number] Univers 10:30:00 10:30:00 ity of [facility] 2020-06-11 2020-06-11 Outpatient R ARLYN LADD [facility] [id number] Univers 12:47:01 12:47:01 ity of [facility] 2020-05-24 2020-05-24 Outpatient R DANIEL [facility] [id number] Univers 11:30:00 11:30:00 [facility] 2020-05-15 Outpatient R JOSEPH SANDY [facility] [id number] Univers 13:15:00 13:15:00 ity of [facility] 2020-05-07 2020-05-07 Outpatient P [facility] [id number] Univers 10:30:00 10:30:[address] [facility] 2020-04-27 2020-04-27 Outpatient R DANIEL [facility] [id number] Univers 11:15:00 11:15:00 DONTE [facility] 2020-04-11 2020-04-11 Outpatient R ALYSHA [facility] [id number] Univers 14:30:00 14:30:00 SIMON ity o f [facility] 2020-04-10 2020-04-10 Outpatient R RUIZALONDRAEN [facility] [id number] Univers 13:00:00 13:00:[address] [facility] 2020-03-29 2020-03-29 Outpatient R [facility] [id number] Univers 14:00:00 14:00:[address] [facility] 2020-03-26 2020-03-26 Outpatient R DANIEL [facility] [id number] Univers [facility]:30[facility] 2020-03[facility]23 Outpatient R [facility] [id number] Univers 08:00:00 08:00:00 ity of [facility] 2020-03-16 2020-03-16 Outpatient P [facility] [id number] Univers 15:15:00 15:15:00 ity of [facility] 2020-03-14 2020-03-14 Outpatient R [facility] [id number] Univers 14:30:00 14:30:00 ity of [facility] 2020-03-12 2020-03-12 Outpatient R [facility] [id number] Univers 08:00:00 08:00:[address] [facility] 2020-03-01 2020-03-01 Outpatient R DANIEL [facility] [id number] Univers 09:15:00 09:15:00 [facility] 2020-02-29 2020-02-29 Outpatient Nelsy GALICIA [facility] [id number] Univers 08:45:00 08:45:00 [facility] 2020-02-17 2020-02-17 Outpatient P [facility] [id number] Univers 10:45:00 [facility]:45:[facility] 2020-02-16 2020-02-16 Outpatient ARLYN BENTON [facility] [id number] Univers 13:30:00 13:30:00 [facility] Results This patient has no known results.
[2023-04-27] MEDS ORDERED: ONDANSETRON 4 MG/2 ML VIAL ONE (20:38)
[2023-04-27 20:55] LABS: Albumin 3.7 g/dL (3.4-5.0); Bilirubin Total 0.3 mg/dL (0.2-1.0); Potassium 3.9 mEq/L (3.5-5.1); Protein, Total 7.9 g/dL (6.4-8.2)
[2023-04-27 20:59] LABS: Absolute Lymphocytes (CBC) 2.1 K/uL (0.7-4.9); Hematocrit 35.2 % (36.0-45.0); Lymphocytes % 29.3 % (15.3-44.8); MCV 79.8 fL (80-100); MPV 10.4 fL (7.6-11.3); RBC Red Blood Cell Count 4.41 M/uL (3.86-4.86)
[2023-04-27 21:03] LABS: SARS-CoV-2 Antigen Rapid Res Negative (Negative)
[2023-04-27 21:05] LABS: Specific Gravity 1.028 (1.005-1.030)
[2023-04-27 21:08] LABS: Specific Gravity 1.028 (1.005-1.030); Urine Bacteria <20 /HPF (<20); Urine Bilirubin NEGATIVE (Negative); Urine Blood Negative (Negative); Urine Clarity Clear (Clear); Urine Color Light-Yellow (Yellow); Urine Glucose NEGATIVE (Negative); Urine Protein TRACE (Negative); Urine RBC <5 /HPF (None Seen); Urine Urobilinogen Normal (Normal); Urine pH 7.5 (5.0-7.0)
--- NOTE | 2023-04-28 01:18 | EDPHYS ---
Physician Documentation [facility] Name: Krishan Damian Age: 27 yrs Sex: Female : 1995 Arrival Date: 04/27/2023 Time: 19:04 Bed 18 Private MD: ED Physician Papa Díaz HPI: 04/27 20:05 This 27 yrs old Female presents to ER via Ambulatory with complaints of cp Nausea, Fever, Fatigue. 20:05 The patient presents to the emergency department with nausea, that is mild, vomiting, cp that is intermittent, diarrhea, that is intermittent, abdominal pain. 20:05 Onset: The symptoms/episode began/occurred yesterday. cp 20:05 Associated signs and symptoms: Pertinent positives: fever, fatigue, shortness of cp breath, Pertinent negatives: constipation, cough. Severity of symptoms: in the emergency department the symptoms are unchanged despite home interventions. 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 - Social history:: Smoking status: Patient/guardian denies using tobacco, but has a distant history of tobacco abuse. ROS: 20:10 Constitutional: Positive for body aches, fatigue, Negative for fever. cp 20:10 Eyes: Negative for injury, pain, redness, and discharge. cp 20:10 ENT: Negative for drainage from ear(s), ear pain, difficulty swallowing, difficulty handling secretions. 20:10 Respiratory: Positive for shortness of breath, Negative for cough, wheezing. 20:10 Abdomen/GI: Positive for abdominal pain, nausea, vomiting, and diarrhea, Negative for constipation. 20:10 : Negative for urinary symptoms, vaginal bleeding, vaginal discharge. 20:10 Neuro: Negative for altered mental status, dizziness, headache. 20:10 Cardiovascular: Negative for chest pain. cp 20:10 All other systems are negative. cp Exam: 20:15 Constitutional: The patient appears in no acute distress, alert, awake, non-toxic, well cp developed, well nourished, obese. 20:15 Head/Face: Normocephalic, atraumatic. cp 20:15 Eyes: Periorbital structures: appear normal, Conjunctiva: normal, no exudate, no injection, Sclera: no appreciated abnormality, Lids and lashes: appear normal, bilaterally. 20:15 ENT: External ear(s): are unremarkable, Nose: is normal, Mouth: Lips: moist, Oral mucosa: pink and intact, moist, Posterior pharynx: Airway: no evidence of obstruction, patent, Tonsils: no enlargement, no erythema, no exudate, erythema, is not appreciated, exudate, is not appreciated. 20:15 Neck: ROM/movement: is normal, is supple, without pain, no range of motions limitations, no meningismus. 20:15 Chest/axilla: Inspection: normal. 20:15 Cardiovascular: Rate: normal, Rhythm: regular. 20:15 Respiratory: the patient does not display signs of respiratory distress, Respirations: normal, no use of accessory muscles, no retractions, labored breathing, is not present, Breath sounds: are clear throughout, no decreased breath sounds, no stridor, no wheezing. 20:15 Abdomen/GI: Inspection: obese Bowel sounds: active, all quadrants, Palpation: soft, in all quadrants, mild abdominal tenderness, in the right upper quadrant and right lower quadrant, rebound tenderness, is not appreciated, involuntary guarding, is not appreciated. 20:15 Back: CVA tenderness, is absent. 20:15 Skin: cellulitis, is not appreciated, no rash present. 20:15 Neuro: Orientation: to person, place \T\ time. Mentation: is normal, Motor: moves all fours, strength is normal, Sensation: is normal. Vital Signs: 19:45 BP 121 / 84; Pulse 64; Resp 18; Temp 98.4(O); Pulse Ox 100% on R/A; Weight 127.01 kg; kd3 Height 5 ft. 1 in. ; 21:12 BP 105 / 62; Pulse 61; Resp 18 S; Pulse Ox 100% on R/A; as6 22:00 BP 105 / 89; Pulse 64; Resp 18 S; Pulse Ox 100% on R/A; as6 23:06 BP 104 / 50; Pulse 68; Resp 18 S; Pulse Ox 100% on R/A; as6 04/28 01:00 BP 116 / 82; Pulse 67; Resp 18 S; Pulse Ox 100% on R/A; as6 04/27 19:45 Body Mass Index 52.90 (127.01 kg, 154.94 cm) kd3 MDM: 04/27 19:54 Patient medically screened. cp 20:00 Differential diagnosis: gastritis, cholecystitis, appendicitis, viral gastroenteritis, cp gastroenteritis, , sepsis, UTI. 04/28 01:17 Data reviewed: vital signs, nurses notes, lab test result(s), radiologic studies, CT cp scan. 01:17 Consideration of Admission/Observation Escalation of care including cp admission/observation considered. Care significantly affected by the following chronic conditions: Hypertension. Counseling: I had a detailed discussion with the patient and/or guardian regarding: the historical points, exam findings, and any diagnostic results supporting the discharge/admit diagnosis, lab results, radiology results, to return to the emergency department if symptoms worsen or persist or if there are any questions or concerns that arise at home. Response to treatment: the patient's symptoms have markedly improved after treatment, and as a result, I will discharge patient. 04/27 19:55 Order name: CBC with Diff; Complete Time: 21:51 cp 04/27 21:51 Interpretation: Normal except: HGB 11.4; HCT 35.2; MCV 79.8; MCH 25.8; RDW 15.9. cp 04/27 19:55 Order name: CMP; Complete Time: 21:51 cp 04/27 21:51 Interpretation: Normal except: ANION GAP 4.9; GLUC 107; AST 11; GLOB 4.2; A/G 0.9. cp 04/27 19:55 Order name: Lipase; Complete Time: 21:51 cp 04/27 19:55 Order name: Test, Urine; Complete Time: 21:51 cp 04/27 19:55 Order name: Urinalysis w/ reflexes; Complete Time: 21:51 cp 04/27 19:55 Order name: SARS RAPID; Complete Time: 21:51 cp 04/27 19:55 Order name: Influenza Screen (a \T\ B); Complete Time: 21:51 cp 04/27 19:55 Order name: Strep; Complete Time: 21:51 cp 04/27 19:55 Order name: [place] Screen Profile; Complete Time: 21:51 cp 04/27 20:57 Order name: Throat Culture EDNV 04/27 21:52 Order name: XRAY Chest (1 view) 04/27 23:31 Order name: CT Abd/Pelvis - IV Contrast Only cp 04/27 19:55 Order name: IV Saline Lock; Complete Time: 20:26 cp 04/27 19:55 Order name: Labs collected and sent; Complete Time: 20:26 cp 04/28 01:16 Order name: PO challenge; Complete Time: 01:35 cp Administered Medications: 04/27 20:33 Drug: Ondansetron IVP 4 mg Route: IVP; Site: right antecubital; ks5 04/28 01:35 Follow up: Response: No adverse reaction as6 Disposition Summary: 04/28/23 01:17 Discharge Ordered Location: Home cp Problem: new cp Symptoms: have improved cp Condition: Stable cp Diagnosis - Nausea cp - Abdominal pain, unspecified cp - Other malaise and fatigue cp Followup: cp - With: Private Physician - When: 2 - 3 days - Reason: Recheck today's complaints Discharge Instructions: - Discharge Summary Sheet cp - Abdominal Pain, Adult cp - Nausea, Adult cp - Fatigue cp - Form - Excuse from Work, School, or Physical Activity cp Forms: - Medication Reconciliation Form cp - Thank You Letter cp - Antibiotic Education cp - Prescription Opioid Use cp - Work release form rv1 Prescriptions: - Zofran 4 mg Oral Tablet - take 1 tablet by ORAL route every 12 hours As needed; 20 tablet; Refills: 0, cp Product Selection Permitted Signatures: Dispatcher [employer] EDNV Sharan Aquino PA PA cp Dolly Pascual RN RN ks5 Nithya Quintero RN RN kd3 Stuart Schumacher RN as6 Corrections: (The following items were deleted from the chart) 23:53 04/27 20:10 Respiratory: Negative for cough, wheezing, cp cp 04/28 23:53 04/27 20:10 All other systems are negative, cp cp 04/29 00:37 04/27 20:05 The patient presents to the emergency department with nausea, that is mild, cp diarrhea, that is intermittent, abdominal pain, cp
--- NOTE | 2023-04-28 01:18 | ER ---
Nurse's Notes [facility] Name: Krishan Damian Age: 27 yrs Sex: Female : 1995 Arrival Date: 04/27/2023 Time: 19:04 Bed 18 Private MD: Diagnosis: Nausea;Abdominal pain, unspecified;Other malaise and fatigue Presentation: 04/27 19:45 Chief complaint: Patient states: I started to feel bad yesterday with feeling feverish, kd3 nausea, vomiting, body aches, diarrhea and shortness of breath. Coronavirus screen: Vaccine status: Patient reports receiving the 2nd dose of the covid vaccine. Ebola Screen: No symptoms or risks identified at this time. Initial Sepsis Screen: Does the patient meet any 2 criteria? No. Patient's initial sepsis screen is negative. Does the patient have a suspected source of infection? No. Patient's initial sepsis screen is negative. Risk Assessment: Do you want to hurt yourself or someone else? Patient reports no desire to harm self or others. Onset of symptoms was April 27, 2023. 19:45 Method Of Arrival: Ambulatory kd3 19:45 Acuity: CRISTHIAN 4 kd3 Triage Assessment: 19:49 General: Appears ill, Behavior is calm, cooperative. Pain: Complains of pain in body kd3 aches. GI: Reports diarrhea, nausea, vomiting, since yesterday. 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 - Social history:: Smoking status: Patient/guardian denies using tobacco, but has a distant history of tobacco abuse. Screenin:13 [facility] ED Fall Risk Assessment (Adult) Score/Fall Risk Level 0 - 2 = Low Risk. Abuse as6 screen: Denies threats or abuse. Denies injuries from another. Nutritional screening: No deficits noted. Tuberculosis screening: No symptoms or risk factors identified. Assessment: 21:12 General: Appears in no apparent distress. Behavior is calm, cooperative. General: as6 Reports chills for fever for feeling ill for fatigue for. Pain: Complains of pain in generalized. Neuro: Level of Consciousness is awake, alert, obeys commands, Oriented to person, place, time, situation. Cardiovascular: Capillary refill < 3 seconds Patient's skin is warm and dry. Respiratory: Respiratory effort is even, unlabored, Respiratory pattern is regular, symmetrical. GI: Reports nausea. Derm: Skin is intact, is healthy with good turgor. 22:01 Reassessment: Patient appears in no apparent distress at this time. Patient and/or as6 family updated on plan of care and expected duration. Pain level reassessed. Patient is alert, oriented x 3, equal unlabored respirations, skin warm/dry/pink. Vital Signs: 19:45 BP 121 / 84; Pulse 64; Resp 18; Temp 98.4(O); Pulse Ox 100% on R/A; Weight 127.01 kg; kd3 Height 5 ft. 1 in. ; 21:12 BP 105 / 62; Pulse 61; Resp 18 S; Pulse Ox 100% on R/A; as6 22:00 BP 105 / 89; Pulse 64; Resp 18 S; Pulse Ox 100% on R/A; as6 23:06 BP 104 / 50; Pulse 68; Resp 18 S; Pulse Ox 100% on R/A; as6 04/28 01:00 BP 116 / 82; Pulse 67; Resp 18 S; Pulse Ox 100% on R/A; as6 04/27 19:45 Body Mass Index 52.90 (127.01 kg, 154.94 cm) kd3 ED Course: 04/27 19:06 Patient arrived in ED. mr 19:15 Sharan Aquino PA is PHCP. cp 19:15 Papa Díaz MD is Attending Physician. cp 19:49 Triage completed. kd3 19:50 Arm band placed on right wrist. kd3 20:26 [place] Screen Profile Sent. kd3 20:26 Strep Sent. kd3 20:26 Influenza Screen (a \T\ B) Sent. kd3 20:26 SARS RAPID Sent. kd3 20:26 CBC with Diff Sent. kd3 20:26 CMP Sent. kd3 20:26 Lipase Sent. kd3 20:26 Inserted saline lock: 20 gauge in right antecubital area, using aseptic technique. kd3 Blood collected. 20:29 Stuart Schumacher, RN is Primary Nurse. as6 21:13 Bed in low position. Call light in reach. Side rails up X 1. as6 22:58 XRAY Chest (1 view) In Process Unspecified. EDMS 04/28 00:01 CT Abd/Pelvis - IV Contrast Only In Process Unspecified. EDMS 01:36 No provider procedures requiring assistance completed. IV discontinued, intact, as6 bleeding controlled, No redness/swelling at site. Pressure dressing applied. Administered Medications: 04/27 20:33 Drug: Ondansetron IVP 4 mg Route: IVP; Site: right antecubital; ks5 04/28 01:35 Follow up: Response: No adverse reaction as6 Medication: 04/27 21:13 VIS not applicable for this client. as6 Outcome: 04/28 01:17 Discharge ordered by . cp 01:37 Discharged to home ambulatory. as6 01:37 Condition: stable 01:37 Discharge instructions given to patient, Instructed on discharge instructions, follow up and referral plans. medication usage, Demonstrated understanding of instructions, follow-up care, medications, Prescriptions given X 1. 01:37 Patient left the ED. as6 Signatures: Dispatcher [employer] [facility]NH Eva Mota Sharan Aquino, ALETHA PA Dolly Wells, RN RN ks5 Stuart Schumacher, JT RN as6 Nithya Quintero RN RN kd3
[2023-04-28 01:56] VITALS: TEMP 98.4; O2SAT 100
[2023-04-28 02:06] VITALS: BP 116/82
--- NOTE | 2023-04-28 11:08 | RAD REPORT ---
EXAM DESCRIPTION: CT - Abdomen Pelvis W Contrast - 04/28/2023 7:02 am CLINICAL HISTORY: The patient is 27 years old and is Female; ABD PAIN TECHNIQUE: Axial computed tomography images of the abdomen and pelvis with intravenous contrast. S agittal and coronal reformatted images were created and reviewed. This CT exam was performed using one or more of the following dose reduction techniques: automated exposure control, adjustment of t he mA and/or kV according to patient size, and/or use of iterative reconstruction technique. COMPARISON: No relevant prior studies available. FINDINGS: Lung bases: Unremarkable. No mass. No consolidation. ABDOMEN: Liver: Hepatomegaly. Gallbladder and bile ducts: Unremarkable. No calcified stones. No ductal dilation. Pancreas: Unremarkable. No mass. No ductal dilation. Spleen: Unremarkable. No splenomegaly. Adrenals: Unremarkable. No mass. Kidneys and ureters: Unremarkable. No solid mass. No hydronephrosis. Stomach and bowel: Sigmoid diverticula. No obstruction. No mucosal thickening. PELVIS: Appendix: No findings to suggest acute appendicitis. Bladder: Unremarkable. Reproductive: Unremarkable as visualized. ABDOMEN and PELVIS: Intraperitoneal space: Unremarkable. No free air. No significant fluid collection. Bones/joints: No acute fracture. No dislocation. Soft tissues: Unremarkable. Vasculature: Unremarkable. No abdominal aortic aneurysm. Lymph nodes: Unremarkable. No enlarged lymph nodes. IMPRESSION: No acute finding in the abdomen/pelvis. Electronically signed by: Edilberto Anderson MD 04/28/2023 12:33 AM CDT Due to temporary technical issues with the PACS/Fluency reporting system, reports are being signed by the in house radiologists without review as a courtesy to insure prompt reporting. The interpreting radiologist is fully responsible for the content of the report.
--- NOTE | 2023-04-28 16:17 | RAD REPORT ---
EXAM DESCRIPTION: RAD - Chest Single View - 04/27/2023 10:56 pm CLINICAL HISTORY: The patient is 27 years old and is Female; SOB TECHNIQUE: Frontal view of the chest. COMPARISON: No relevant prior studies available. FINDINGS: Lungs: Mildly prominent interstitial markings. No consolidation. Pleural space: Unremarkable. No pneumothorax. Heart: Unremarkable. Mediastinum: Unremarkable. Bones/joints: Unremarkable. IMPRESSION: No acute findings in the chest. Electronically signed by: Edilberto Anderson MD 04/28/2023 12:28 AM CDT Due to temporary technical issues with the PACS/Fluency reporting system, reports are being signed by the in house radiologists without review as a courtesy to insure prompt reporting. The interpreting radiologist is fully responsible for the content of the report.
== END 2023-04-28 01:37 | disposition home or self-care (01) ==
LOC: ER 19:04
DX: R11.0 Nausea (principal); R10.11 Right upper quadrant pain; R10.31 Right lower quadrant pain; R53.81 Other malaise; R53.83 Other fatigue; I10 Essential (primary) hypertension; Z20.822 Contact with and (suspected) exposure to COVID-19
CPT/HCPCS: 87070; 85025; 81001; 36415; 86308; 81025; 87081; 83690; 80053; 87804 ×2; 74177; 71045; 96374; 99284; 87811; Q9967; J2405

== ENCOUNTER → 2024-01-06 | Emergency (ER) | payer OTHER ==
[~2024-01-06] MED LIST: FAMOTIDINE 20 MG/2 ML VIAL IV ONE; LOPERAMIDE HCL 2 MG CAPSULE ONE; NA CHLORIDE 0.9% 1,000 ML ONE; ONDANSETRON 4 MG/2 ML VIAL ONE
--- OUTSIDE RECORDS SUMMARY | 2024-01-06 06:19 | XMS REPORT | Continuity of Care Document ---
Author Name Unknown Address [address] [facility] [address] [place] [address] [facility] thconnect Address [address] [facility] [place] [address] Care Team Providers Care Qc Manager Name Role Phone JEN VIZCARRA Primary Care Physician UnavailSANDY Dickens Attending Clinician Unavailable JOSE MCKEON Attending Clinician UnavailJEN Lee Attending Clinician Unavailable HOLLIS KEARNS Attending Clinician Unavailable Nurse, Patito Mancia Attending Clinician Unavailable Hollis Chan Attending Clinician [phone] HOLLIS GOLDBERG Attending Clinician Unavailable RAMESH GUTIERREZ Attending Clinician UnavailRAMESH Smith Attending Clinician UnavailMariely Adrian Attending Clinician [phone] Siddhartha Alva MD Attending Clinicia n SHANDA SAUNDERS Attending Clinician Unavailable Shanda Saunders OD Attending Clinician [phone] Doctor Unassigned, [place] Attending Clinician Jen Matamoros MD Attending Clinician [phone] VIOLET HEREDIA Attending Clinician UnavailViolet Bright MD Attending Clinician [phone] Leslee Wall MD Attending Clinician [phone] Ubaldo BACON Attending Clinician Unavailable Ubaldo Márquez Attending Clinician [phone], [facility] Attending Clinician Unavailable ARCADIO MCCALLUM Attending Clinician Unavail able ARLYN LADD Attending Clinician Unavailable DONTE SANCHEZ Attending Clinician Unavailable SIMON ENCARNACION Attending Clinician Unavailable BISMARK GALICIA Attending Clinician Unavailable SANDY RUIZ Admitting Clinician Unavailable SIDDHARTHA ALVA Admitting Clinician U navailable Payers Payer Name Policy Type Policy Number Effective Date Expirati on Date Source [employer] MEDICA[employer] [id number] 2020 00:00:00 [facility] [id number] 00:00:00 Problems Condition Name Condition Details Condition Category Status Onset Date Resolution Date Last Treatment Date Treating Clinician Comments Source Morbid obesity with body mass index of 50 or higher Morbid obesity with body mass index of 50 or higher Disease Active 2022-11 2-15 00:00: 00 [facility] Papilledem a of both eyes Papilledem a of both eyes Disease Active 2022-11 2-14 00:00: 00 [facility] COVID-19 virus infection COVID-19 virus infection Disease Active 2022-11 0- 00:00: 00 [facility] Nasal congestion Nasal congestion Disease Active 2022-11 0- 00:00: 00 [facility] Panic attack Panic attack Disease Active 2022-11 0- 00:00: 00 [facility] Visual hallucinat ion Visual hallucinat ion Disease Active 2022-11 0- 00:00: 00 [facility] Moderate persistent asthma without complicati on Moderate persistent asthma without complicati on Disease Active 08-04 00:00: 00 [facility] Dandruff, adult Dandruff, adult Disease Active 9- 00:00: 00 [facility] Essential hypertensi on Essential hypertensi on Disease Active 07-07 00:00: 00 [facility] Asthma, mild intermitte nt, well-contr olled Asthma, mild intermitte nt, well-contr olled Disease Active - 00:00: 00 [facility] Anxiety, generalize d Anxiety, generalize d Disease Active 07-07 00:00: 00 [facility] Agitation Agitation Disease Active 8 00:00: 00 [facility] Acute bacterial conjunctiv itis of left eye Acute bacterial conjunctiv itis of left eye Disease Active 8 00:00: 00 [facility] Auditory hallucinat ion Auditory hallucinat ion Disease Active 8 00:00: 00 [facility] MDD (major depressive disorder), recurrent severe, without psychosis MDD (major depressive disorder), recurrent severe, without psychosis Disease Active 8 00:00: 00 [facility] Other schizoaffe ctive disorders Other schizoaffe ctive disorders Disease Active 07-07 00:00: 00 [facility] Status post bilateral salpingect veronica Status post bilateral salpingect veronica Disease Active 8-18 00:00: 00 [facility] Encounter for tubal ligation Encounter for tubal ligation Disease Active 7-31 00:00: 00 [facility] History of Webb's palsy History of Webb's palsy Disease Active 0 3-19 00:00: 00 [facility] Bipolar affective disorder, currently depressed, moderate Bipolar affective disorder, currently depressed, moderate Disease Active 2017-11 00:00: 00 [facility] BMI 50.0-59.9, adult BMI 50.0-59.9, adult Disease Active 2017-11 00:00: 00 [facility] Allergies, Adverse Reactions, Alerts Allergy Name Allergy Type Status Severity Reaction(s) Onset Date Inactive Date Treating Clinician Comments Source NO KNOWN ALLERGIE S Drug Class Active [facility] Family History Family Member Diagnosis Comments Start Date Stop Date Sourc e Natural brother Other - see comments [facility] father Depression [facility] Natural father [facility] Natural father Other - see comments [facility] Natural father Psychiatry [facility] Maternal Aunt Ovarian Cancer [facility] Maternal grandfather Colon Cancer [facility] Maternal grandfather Hypertension [facility] Maternal grandmother Arthritis [facility] Maternal grandmother Asthma [facility] Maternal grandmother Diabetes [facility] Maternal grandmother High cholesterol [facility] Maternal Uncle Depression [facility] Maternal Uncle Psychiatry [facility] Natural mother [facility] Natural mother [facility] Natural mother Depression [facility] Natural mother Other - see comments [facility] Natural mother Psychiatry [facility] Paternal grandmother Colon Cancer [facility] Paternal grandmother Hypertension [facility] Paternal grandmother Asthma [facility] Paternal grandmother Diabetes [facility] Natural sister defects U [facility] Natural sister Heart [facility] Natural sister Other - see comments [facility] Social History Social Habit Start Date Stop Date Quantity Comments Source Gender identity [facility] Sexual orientation U [facility] Alcohol intake 2023-12-11 00:00:00 2023-12-11 00:00:00 Current non-drinker of alcohol (finding) [facility] Tobacco use and exposure 2023-11-13 00:00:00 2023-11-13 00:00:00 Smokeless tobacco non-user [facility] History of Social function 2023-07-07 00:00:00 2023-07-07 00:00:00 [facility] History of tobacco use 2014-10-07 00:00:00 Cigarette Smoker [facility] Sex Assigned At 1995 00:00:00 1995 00:00:00 [facility] Smoking Status Start Date Stop Date Source Ex-smoker 2023-11-13 00:00:00 2023-11-13 00:00:00 U [facility] Medications Ordered Medication Name Filled Medication Name Start Date Stop Date Current Medication? Ordering Clinician Indication Dosage Frequency Signature (SIG) Comments Components Source albuterol 2.5 mg/0.5 mL nebulizer solution 12-11 09:04: 40 12-11 00:00 :00 No 2.5mg Use 0.5 mL as directed every 6 (six) hours as needed for Wheezing. [facility] albuterol 2.5 mg/0.5 mL nebulizer solution 12-11 09:04: 40 12-11 00:00 :00 No 2.5mg Use 0.5 mL as directed every 6 (six) hours as needed for Wheezing. [facility] gadobenate dimeglumine (MULTIHANCE -20 mL) injection 26.04 mL 2022-11 20:00: 00 11-17 20:00 :00 No [id number] .2mL/kg 26.04 mL (0.2 mL/kg ?130.2 kg), Intravenou s, ONCE, 1 dose, On Thu11/17/23 at 1400, Routine [facility] albuterol 2.5 mg/0.5 mL nebulizer solution 2022-11 18:08: 17 Yes 2.5mg Use 0.5 mL as directed every 6 (six) hours as needed for Wheezing. [facility] albuterol 2.5 mg/0.5 mL nebulizer solution 2022-11 18:08: 17 Yes 2.5mg Use 0.5 mL as directed every 6 (six) hours as needed for Wheezing. [facility] lidocaine 1% (PF) (XYLOCAINE) injection 2022-11 18:21: 32 11-16 18:21 :32 No PRN, Starting on Thu11/16/23 at 1221, Until Thu11/16/23 at 1221, Routine, Intra-op [facility] LORazepam (ATIVAN) tablet 2022-11 17:31: 36 11-16 17:31 :36 No PRN, Starting on Thu11/16/23 at 1131, Until Thu11/16/23 at 1131, Routine, Intra-op [facility] LORazepam (ATIVAN) injection 2 mg 2022-11 21:00: 00 11-14 21:42 :00 No 2mg 2 mg, Slow IV Push, ONCE, 1 dose, On 11/14/23 at 1515, [facility] lidocaine PF 2% (XYLOCAINE- MPF) injection 10 mL 2022-11 20:45: 00 11-14 20:45 :00 No 10mL 10 mL, Infiltrati on, ONCE, 1 dose, On 11/14/23 at 1445, Routine [facility] gadoteridol (PROHANCE-2 0 mL) injection 26.04 mL 2022-11 19:00: 00 11-14 19:00 :00 No [id number] .2mL/kg 26.04 mL (0.2 mL/kg ?130.2 kg), Intravenou s, ONCE, 1 dose, On 11/14/23 at 1300, Routine [facility] enoxaparin (LOVENOX) injection 40 mg 2022-11 15:00: 00 Yes 40mg 40 mg, Subcutaneo us, DAILY, First dose on Thu11/13/23 at 0900, Until Discontinu ed, Routine [facility] pantoprazol e (PROTONIX) EC tablet 40 mg 2022-11 15:00: 00 Yes 40mg 40 mg, Oral, DAILY, First dose on Thu11/13/23 at 0900, Until Discontinu ed, Routine [facility] SERTraline (ZOLOFT) tablet 25 mg 2022-11 15:00: 00 Yes 25mg 25 mg, Oral, DAILY, First dose on Thu11/13/23 at 0900, Until Discontinu ed, Routine [facility] lurasidone (LATUDA) tablet 20 mg 2022-11 15:00: 00 Yes 20mg 20 mg, Oral, DAILY, First dose on Thu11/13/23 at 0900, Until Discontinu ed, Routine [facility] hydroCHLORO thiazide (ESIDRIX) capsule 12.5 mg 2022-11 15:00: 00 Yes 12.5mg 12.5 mg, Oral, DAILY, First dose on Thu11/13/23 at 0900, Until Discontinu ed, Routine [facility] lisinopriL (PRINIVIL,Z ESTRIL) tablet 10 mg 2022-11 15:00: 00 Yes 10mg 10 mg, Oral, DAILY, First dose on Thu11/13/23 at 0900, Until Discontinu ed, Routine [facility] budesonide- formoteroL (SYMBICORT) 160-4.5 mcg/actuati on inhaler 2 Puff 2022-11 15:00: 00 Yes 2{puff} 2 Puff, Inhalation , DAILY, First dose on Thu11/13/23 at 0900, Until Discontinu ed, Routine [facility] NaCl 0.9% (NS) IV infusion 1,000 mL 2022-11 01:30: 00 Yes 1000mL at 50 mL/hr, IV Infusion, CONTINUOUS , Starting on Thu11/12/23 at 1930, Until Discontinu ed, Routine [facility] acetaminoph en (TYLENOL) tablet 650 mg 2022-11 01:13: 55 Yes 650mg 650 mg, Oral, Q6HPRN, Starting on Thu11/12/23 at 1913, Until Discontinu ed, Routine, Pain (scale 4-6) [facility] docusate (COLACE) capsule 100 mg 2022-11 01:13: 55 Yes 100mg 100 mg, Oral, QDAILYPRN, Starting on Thu11/12/23 at 1913, Until Discontinu ed, Routine, Constipati on [facility] ketoconazol e (NIZORAL) 2 % shampoo 2022-11 01:12: 25 Yes [facility] albuterol (VENTOLIN) inhaler 2 Puff 2022-11 01:12: 01 Yes 2{puff} 2 Puff, Inhalation , Q6HPRN, Starting on Thu11/12/23 at 1912, Until Discontinu ed, Routine, Wheezing, Shortness of Breath [facility] albuterol (PROVENTIL) 2.5 mg /3 mL (0.083 %) nebulizer solution 2.5 mg 2022-11 01:11: 59 Yes 2.5mg 2.5 mg, Inhalation , Q6HPRN, Starting on Marly 11/12/23 at 1911, Until Discontinu ed, Routine, Wheezing [facility] albuterol 2.5 mg/0.5 mL nebulizer solution 2022-11 21:27: 43 Yes 2.5mg Use 0.5 mL as directed every 6 (six) hours as needed for Wheezing. [facility] albuterol 2.5 mg/0.5 mL nebulizer solution 2022-11 21:27: 43 Yes 2.5mg Use 0.5 mL as directed every 6 (six) hours as needed for Wheezing. [facility] nirmatrelvi r-ritonavir (PAXLOVID) 300 mg (150 mg x 2)-100 mg tablet 2022-11 00:00: 00 Yes [id number] 3{tbl} Take 3 tablets by mouth in the morning and 3 tablets in the evening. [facility] vitamin C with antonette hips (VITAMIN C) 1,000 mg tablet 2022-11 00:00: 00 Yes [id number] 1000mg Take 1 tablet by mouth in the morning. [facility] Zinc Gluconate 100 mg Tab 2022-11 00:00: 00 Yes [id number] 1{tbl} Take 1 tablet by mouth in the morning. [facility] calcium carbonate 500 mg calcium (1,250 mg) tablet 2022-11 00:00: 00 Yes [id number] 500mg Take 1 tablet by mouth in the morning. [facility] fluticasone propionate 50 mcg/actuati on nasal spray 2022-11 00:00: 00 Yes [id number] 1{spray } Use 1 Dawson in each nostril in the morning. [facility] bromphenira mine-pseudo ephedrine-D M (BROMFED DM) 2-30-10 mg/5 mL syrup 2022-11 00:00: 00 Yes [id number] 10mL Take 10 mL by mouth 4 (four) times daily as needed for Cough. [facility] nirmatrelvi r-ritonavir (PAXLOVID) 300 mg (150 mg x 2)-100 mg tablet 2022-11 00:00: 00 Yes [id number] 3{tbl} Take 3 tablets by mouth in the morning and 3 tablets in the evening. [facility] vitamin C with antonette hips (VITAMIN C) 1,000 mg tablet 2022-11 00:00: 00 Yes [id number] 1000mg Take 1 tablet by mouth in the morning. [facility] Zinc Gluconate 100 mg Tab 2022-11 00:00: 00 Yes [id number] 1{tbl} Take 1 tablet by mouth in the morning. [facility] calcium carbonate 500 mg calcium (1,250 mg) tablet 2022-11 00:00: 00 Yes [id number] 500mg Take 1 tablet by mouth in the morning. [facility] fluticasone propionate 50 mcg/actuati on nasal spray 2022-11 00:00: 00 Yes [id number] 1{spray } Use 1 Dawson in each nostril in the morning. [facility] bromphenira mine-pseudo ephedrine-D M (BROMFED DM) 2-30-10 mg/5 mL syrup 2022-11 00:00: 00 Yes [id number] 10mL Take 10 mL by mouth 4 (four) times daily as needed for Cough. [facility] nirmatrelvi r-ritonavir (PAXLOVID) 300 mg (150 mg x 2)-100 mg tablet 2022-11 00:00: 00 Yes [id number] 3{tbl} Take 3 tablets by mouth in the morning and 3 tablets in the evening. [facility] vitamin C with antonette hips (VITAMIN C) 1,000 mg tablet 2022-11 00:00: 00 Yes [id number] 1000mg Take 1 tablet by mouth in the morning. [facility] Zinc Gluconate 100 mg Tab 2022-11 00:00: 00 Yes [id number] 1{tbl} Take 1 tablet by mouth in the morning. [facility] calcium carbonate 500 mg calcium (1,250 mg) tablet 2022-11 00:00: 00 Yes [id number] 500mg Take 1 tablet by mouth in the morning. [facility] fluticasone propionate 50 mcg/actuati on nasal spray 2022-11 00:00: 00 Yes [id number] 1{spray } Use 1 Dawson in each nostril in the morning. [facility] bromphenira mine-pseudo ephedrine-D M (BROMFED DM) 2-30-10 mg/5 mL syrup 2022-11 00:00: 00 Yes [id number] 10mL Take 10 mL by mouth 4 (four) times daily as needed for Cough. [facility] nirmatrelvi r-ritonavir (PAXLOVID) 300 mg (150 mg x 2)-100 mg tablet 2022-11 00:00: 00 Yes [id number] 3{tbl} Take 3 tablets by mouth in the morning and 3 tablets in the evening. [facility] vitamin C with antonette hips (VITAMIN C) 1,000 mg tablet 2022-11 00:00: 00 Yes [id number] 1000mg Take 1 tablet by mouth in the morning. [facility] Zinc Gluconate 100 mg Tab 2022-11 00:00: 00 Yes [id number] 1{tbl} Take 1 tablet by mouth in the morning. [facility] calcium carbonate 500 mg calcium (1,250 mg) tablet 2022-11 00:00: 00 Yes [id number] 500mg Take 1 tablet by mouth in the morning. [facility] fluticasone propionate 50 mcg/actuati on nasal spray 2022-11 00:00: 00 Yes [id number] 1{spray } Use 1 Dawson in each nostril in the morning. [facility] bromphenira mine-pseudo ephedrine-D M (BROMFED DM) 2-30-10 mg/5 mL syrup 2022-11 00:00: 00 Yes [id number] 10mL Take 10 mL by mouth 4 (four) times daily as needed for Cough. [facility] nirmatrelvi r-ritonavir (PAXLOVID) 300 mg (150 mg x 2)-100 mg tablet 2022-11 00:00: 00 Yes [id number] 3{tbl} Take 3 tablets by mouth in the morning and 3 tablets in the evening. [facility] vitamin C with antonette hips (VITAMIN C) 1,000 mg tablet 2022-11 00:00: 00 Yes [id number] 1000mg Take 1 tablet by mouth in the morning. [facility] Zinc Gluconate 100 mg Tab 2022-11 00:00: 00 Yes [id number] 1{tbl} Take 1 tablet by mouth in the morning. [facility] calcium carbonate 500 mg calcium (1,250 mg) tablet 2022-11 00:00: 00 Yes [id number] 500mg Take 1 tablet by mouth in the morning. [facility] fluticasone propionate 50 mcg/actuati on nasal spray 2022-11 00:00: 00 Yes [id number] 1{spray } Use 1 Dawson in each nostril in the morning. [facility] bromphenira mine-pseudo ephedrine-D M (BROMFED DM) 2-30-10 mg/5 mL syrup 2022-11 00:00: 00 Yes [id number] 10mL Take 10 mL by mouth 4 (four) times daily as needed for Cough. [facility] fluticasone propionate 50 mcg/actuati on nasal spray 2022-11 00:00: 00 Yes [id number] 1{spray } Use 1 Dawson in each nostril in the morning. [facility] fluticasone propionate 50 mcg/actuati on nasal spray 2022-11 00:00: 00 Yes [id number] 1{spray } Use 1 Dawson in each nostril in the morning. [facility] fluticasone propionate 50 mcg/actuati on nasal spray 2022-11 00:00: 00 Yes [id number] 1{spray } Use 1 Dawson in each nostril in the morning. [facility] fluticasone propionate 50 mcg/actuati on nasal spray 2022-11 00:00: 00 Yes [id number] 1{spray } Use 1 Dawson in each nostril in the morning. [facility] fluticasone propionate 50 mcg/actuati on nasal spray 2022-11 00:00: 00 Yes [id number] 1{spray } Use 1 Dawson in each nostril in the morning. [facility] fluticasone propionate 50 mcg/actuati on nasal spray 2022-11 00:00: 00 Yes [id number] 1{spray } Use 1 Dawson in each nostril in the morning. [facility] nirmatrelvi r-ritonavir (PAXLOVID) 300 mg (150 mg x 2)-100 mg tablet 2022-11 00:00: 00 Yes [id number] 3{tbl} Take 3 tablets by mouth in the morning and 3 tablets in the evening. [facility] vitamin C with antonette hips (VITAMIN C) 1,000 mg tablet 2022-11 00:00: 00 Yes [id number] 1000mg Take 1 tablet by mouth in the morning. [facility] Zinc Gluconate 100 mg Tab 2022-11 00:00: 00 Yes [id number] 1{tbl} Take 1 tablet by mouth in the morning. [facility] calcium carbonate 500 mg calcium (1,250 mg) tablet 2022-11 00:00: 00 Yes [id number] 500mg Take 1 tablet by mouth in the morning. [facility] fluticasone propionate 50 mcg/actuati on nasal spray 2022-11 00:00: 00 Yes [id number] 1{spray } Use 1 Dawson in each nostril in the morning. [facility] bromphenira mine-pseudo ephedrine-D M (BROMFED DM) 2-30-10 mg/5 mL syrup 2022-11 00:00: 00 Yes [id number] 10mL Take 10 mL by mouth 4 (four) times daily as needed for Cough. [facility] nirmatrelvi r-ritonavir (PAXLOVID) 300 mg (150 mg x 2)-100 mg tablet 2022-11 00:00: 00 Yes [id number] 3{tbl} Take 3 tablets by mouth in the morning and 3 tablets in the evening. [facility] vitamin C with antonette hips (VITAMIN C) 1,000 mg tablet 2022-11 00:00: 00 Yes [id number] 1000mg Take 1 tablet by mouth in the morning. [facility] Zinc Gluconate 100 mg Tab 2022-11 00:00: 00 Yes [id number] 1{tbl} Take 1 tablet by mouth in the morning. [facility] calcium carbonate 500 mg calcium (1,250 mg) tablet 2022-11 00:00: 00 Yes [id number] 500mg Take 1 tablet by mouth in the morning. [facility] fluticasone propionate 50 mcg/actuati on nasal spray 2022-11 00:00: 00 Yes [id number] 1{spray } Use 1 Dawson in each nostril in the morning. [facility] bromphenira mine-pseudo ephedrine-D M (BROMFED DM) 2-30-10 mg/5 mL syrup 2022-11 00:00: 00 Yes [id number] 10mL Take 10 mL by mouth 4 (four) times daily as needed for Cough. [facility] nirmatrelvi r-ritonavir (PAXLOVID) 300 mg (150 mg x 2)-100 mg tablet 2022-11 00:00: 00 Yes [id number] 3{tbl} Take 3 tablets by mouth in the morning and 3 tablets in the evening. [facility] vitamin C with antonette hips (VITAMIN C) 1,000 mg tablet 2022-11 00:00: 00 Yes [id number] 1000mg Take 1 tablet by mouth in the morning. [facility] Zinc Gluconate 100 mg Tab 2022-11 00:00: 00 Yes [id number] 1{tbl} Take 1 tablet by mouth in the morning. [facility] calcium carbonate 500 mg calcium (1,250 mg) tablet 2022-11 00:00: 00 Yes [id number] 500mg Take 1 tablet by mouth in the morning. [facility] fluticasone propionate 50 mcg/actuati on nasal spray 2022-11 00:00: 00 Yes [id number] 1{spray } Use 1 Dawson in each nostril in the morning. [facility] bromphenira mine-pseudo ephedrine-D M (BROMFED DM) 2-30-10 mg/5 mL syrup 2022-11 00:00: 00 Yes [id number] 10mL Take 10 mL by mouth 4 (four) times daily as needed for Cough. [facility] nirmatrelvi r-ritonavir (PAXLOVID) 300 mg (150 mg x 2)-100 mg tablet 2022-11 00:00: 00 Yes [id number] 3{tbl} Take 3 tablets by mouth in the morning and 3 tablets in the evening. [facility] vitamin C with antonette hips (VITAMIN C) 1,000 mg tablet 2022-11 00:00: 00 Yes [id number] 1000mg Take 1 tablet by mouth in the morning. [facility] Zinc Gluconate 100 mg Tab 2022-11 00:00: 00 Yes [id number] 1{tbl} Take 1 tablet by mouth in the morning. [facility] calcium carbonate 500 mg calcium (1,250 mg) tablet 2022-11 00:00: 00 Yes [id number] 500mg Take 1 tablet by mouth in the morning. [facility] fluticasone propionate 50 mcg/actuati on nasal spray 2022-11 00:00: 00 Yes [id number] 1{spray } Use 1 Dawson in each nostril in the morning. [facility] bromphenira mine-pseudo ephedrine-D M (BROMFED DM) 2-30-10 mg/5 mL syrup 2022-11 00:00: 00 Yes [id number] 10mL Take 10 mL by mouth 4 (four) times daily as needed for Cough. [facility] nirmatrelvi r-ritonavir (PAXLOVID) 300 mg (150 mg x 2)-100 mg tablet 2022-11 00:00: 00 Yes [id number] 3{tbl} Take 3 tablets by mouth in the morning and 3 tablets in the evening. [facility] vitamin C with antonette hips (VITAMIN C) 1,000 mg tablet 2022-11 00:00: 00 Yes [id number] 1000mg Take 1 tablet by mouth in the morning. [facility] Zinc Gluconate 100 mg Tab 2022-11 00:00: 00 Yes [id number] 1{tbl} Take 1 tablet by mouth in the morning. [facility] calcium carbonate 500 mg calcium (1,250 mg) tablet 2022-11 00:00: 00 Yes [id number] 500mg Take 1 tablet by mouth in the morning. [facility] fluticasone propionate 50 mcg/actuati on nasal spray 2022-11 00:00: 00 Yes [id number] 1{spray } Use 1 Dawson in each nostril in the morning. [facility] bromphenira mine-pseudo ephedrine-D M (BROMFED DM) 2-30-10 mg/5 mL syrup 2022-11 00:00: 00 Yes [id number] 10mL Take 10 mL by mouth 4 (four) times daily as needed for Cough. [facility] nirmatrelvi r-ritonavir (PAXLOVID) 300 mg (150 mg x 2)-100 mg tablet 2022-11 00:00: 00 Yes [id number] 3{tbl} Take 3 tablets by mouth in the morning and 3 tablets in the evening. [facility] vitamin C with antonette hips (VITAMIN C) 1,000 mg tablet 2022-11 00:00: 00 Yes [id number] 1000mg Take 1 tablet by mouth in the morning. [facility] Zinc Gluconate 100 mg Tab 2022-11 00:00: 00 Yes [id number] 1{tbl} Take 1 tablet by mouth in the morning. [facility] calcium carbonate 500 mg calcium (1,250 mg) tablet 2022-11 00:00: 00 Yes [id number] 500mg Take 1 tablet by mouth in the morning. [facility] fluticasone propionate 50 mcg/actuati on nasal spray 2022-11 00:00: 00 Yes [id number] 1{spray } Use 1 Dawson in each nostril in the morning. [facility] bromphenira mine-pseudo ephedrine-D M (BROMFED DM) 2-30-10 mg/5 mL syrup 2022-11 00:00: 00 Yes [id number] 10mL Take 10 mL by mouth 4 (four) times daily as needed for Cough. [facility] nirmatrelvi r-ritonavir (PAXLOVID) 300 mg (150 mg x 2)-100 mg tablet 2022-11 00:00: 00 12-11 00:00 :00 No [id number] 3{tbl} Take 3 tablets by mouth in the morning and 3 tablets in the evening. [facility] vitamin C with antonette hips (VITAMIN C) 1,000 mg tablet 2022-11 00:00: 00 12-11 00:00 :00 No [id number] 1000mg Take 1 tablet by mouth in the morning. [facility] Zinc Gluconate 100 mg Tab 2022-11 00:00: 00 12-11 00:00 :00 No [id number] 1{tbl} Take 1 tablet by mouth in the morning. [facility] calcium carbonate 500 mg calcium (1,250 mg) tablet 2022-11 00:00: 00 12-11 00:00 :00 No [id number] 500mg Take 1 tablet by mouth in the morning. [facility] bromphenira mine-pseudo ephedrine-D M (BROMFED DM) 2-30-10 mg/5 mL syrup 2022-11 00:00: 00 12-11 00:00 :00 No [id number] 10mL Take 10 mL by mouth 4 (four) times daily as needed for Cough. [facility] nirmatrelvi r-ritonavir (PAXLOVID) 300 mg (150 mg x 2)-100 mg tablet 2022-11 00:00: 00 12-11 00:00 :00 No [id number] 3{tbl} Take 3 tablets by mouth in the morning and 3 tablets in the evening. [facility] vitamin C with antonette hips (VITAMIN C) 1,000 mg tablet 2022-11 00:00: 00 12-11 00:00 :00 No [id number] 1000mg Take 1 tablet by mouth in the morning. [facility] Zinc Gluconate 100 mg Tab 2022-11 00:00: 00 12-11 00:00 :00 No [id number] 1{tbl} Take 1 tablet by mouth in the morning. [facility] calcium carbonate 500 mg calcium (1,250 mg) tablet 2022-11 00:00: 00 12-11 00:00 :00 No [id number] 500mg Take 1 tablet by mouth in the morning. [facility] bromphenira mine-pseudo ephedrine-D M (BROMFED DM) 2-30-10 mg/5 mL syrup 2022-11 00:00: 00 12-11 00:00 :00 No [id number] 10mL Take 10 mL by mouth 4 (four) times daily as needed for Cough. [facility] mometasone 0.1 % lotion 2022-11 00:00: 00 Yes [id number] Apply to area(s) 2 (two) times daily. Avoid face, armpits, and groin. [facility] ketoconazol e 2 % shampoo 2022-11 00:00: 00 Yes [id number] Apply to area(s) once daily as needed for Itching. [facility] triamcinolo ne acetonide 0.1 % cream 2022-11 00:00: 00 Yes [id number] Apply to area(s) 2 (two) times daily. [facility] mometasone 0.1 % lotion 2022-11 00:00: 00 Yes [id number] Apply to area(s) 2 (two) times daily. Avoid face, armpits, and groin. [facility] ketoconazol e 2 % shampoo 2022-11 0-20 00:00: 00 Yes [id number] Apply to area(s) once daily as needed for Itching. [facility] triamcinolo ne acetonide 0.1 % cream 2022-11 0-20 00:00: 00 Yes [id number] Apply to area(s) 2 (two) times daily. [facility] mometasone 0.1 % lotion 2022-11 0- 00:00: 00 Yes [id number] Apply to area(s) 2 (two) times daily. Avoid face, armpits, and groin. [facility] ketoconazol e 2 % shampoo 2022-11 0- 00:00: 00 Yes [id number] Apply to area(s) once daily as needed for Itching. [facility] triamcinolo ne acetonide 0.1 % cream 2022-11 0- 00:00: 00 Yes [id number] Apply to area(s) 2 (two) times daily. [facility] mometasone 0.1 % lotion 2022-11 0 00:00: 00 Yes [id number] Apply to area(s) 2 (two) times daily. Avoid face, armpits, and groin. [facility] ketoconazol e 2 % shampoo 2022-11 0 00:00: 00 Yes [id number] Apply to area(s) once daily as needed for Itching. [facility] triamcinolo ne acetonide 0.1 % cream 2022-11 0-20 00:00: 00 Yes [id number] Apply to area(s) 2 (two) times daily. [facility] mometasone 0.1 % lotion 2022-11 0-20 00:00: 00 Yes [id number] Apply to area(s) 2 (two) times daily. Avoid face, armpits, and groin. [facility] ketoconazol e 2 % shampoo 2022-11 0-20 00:00: 00 Yes [id number] Apply to area(s) once daily as needed for Itching. [facility] triamcinolo ne acetonide 0.1 % cream 2022-11 0 00:00: 00 Yes [id number] Apply to area(s) 2 (two) times daily. [facility] mometasone 0.1 % lotion 2022-11 0-20 00:00: 00 Yes [id number] Apply to area(s) 2 (two) times daily. Avoid face, armpits, and groin. [facility] ketoconazol e 2 % shampoo 2022-11 020 00:00: 00 Yes [id number] Apply to area(s) once daily as needed for Itching. [facility] mometasone 0.1 % lotion 2022-11 020 00:00: 00 Yes [id number] Apply to area(s) 2 (two) times daily. Avoid face, armpits, and groin. [facility] ketoconazol e 2 % shampoo 2022-11 020 00:00: 00 Yes [id number] Apply to area(s) once daily as needed for Itching. [facility] mometasone 0.1 % lotion 2022-11 020 00:00: 00 Yes [id number] Apply to area(s) 2 (two) times daily. Avoid face, armpits, and groin. [facility] ketoconazol e 2 % shampoo 2022-11 020 00:00: 00 Yes [id number] Apply to area(s) once daily as needed for Itching. [facility] mometasone 0.1 % lotion 2022-11 0-20 00:00: 00 Yes [id number] Apply to area(s) 2 (two) times daily. Avoid face, armpits, and groin. [facility] ketoconazol e 2 % shampoo 2022-11 0-20 00:00: 00 Yes [id number] Apply to area(s) once daily as needed for Itching. [facility] mometasone 0.1 % lotion 2022-11 0-20 00:00: 00 Yes [id number] Apply to area(s) 2 (two) times daily. Avoid face, armpits, and groin. [facility] ketoconazol e 2 % shampoo 2022-11 0 00:00: 00 Yes [id number] Apply to area(s) once daily as needed for Itching. [facility] mometasone 0.1 % lotion 2022-11 0 00:00: 00 Yes [id number] Apply to area(s) 2 (two) times daily. Avoid face, armpits, and groin. [facility] ketoconazol e 2 % shampoo 2022-11 0 00:00: 00 Yes [id number] Apply to area(s) once daily as needed for Itching. [facility] mometasone 0.1 % lotion 2022-11 0 00:00: 00 Yes [id number] Apply to area(s) 2 (two) times daily. Avoid face, armpits, and groin. [facility] ketoconazol e 2 % shampoo 2022-11 0 00:00: 00 Yes [id number] Apply to area(s) once daily as needed for Itching. [facility] triamcinolo ne acetonide 0.1 % cream 2022-11 0 00:00: 00 Yes [id number] Apply to area(s) 2 (two) times daily. [facility] mometasone 0.1 % lotion 2022-11 0 00:00: 00 Yes [id number] Apply to area(s) 2 (two) times daily. Avoid face, armpits, and groin. [facility] ketoconazol e 2 % shampoo 2022-11 0 00:00: 00 Yes [id number] Apply to area(s) once daily as needed for Itching. [facility] triamcinolo ne acetonide 0.1 % cream 2022-11 0- 00:00: 00 Yes [id number] Apply to area(s) 2 (two) times daily. [facility] mometasone 0.1 % lotion 2022-11 0-20 00:00: 00 Yes [id number] Apply to area(s) 2 (two) times daily. Avoid face, armpits, and groin. [facility] ketoconazol e 2 % shampoo 2022-11 0-20 00:00: 00 Yes [id number] Apply to area(s) once daily as needed for Itching. [facility] triamcinolo ne acetonide 0.1 % cream 2022-11 0- 00:00: 00 Yes [id number] Apply to area(s) 2 (two) times daily. [facility] mometasone 0.1 % lotion 2022-11 0- 00:00: 00 Yes [id number] Apply to area(s) 2 (two) times daily. Avoid face, armpits, and groin. [facility] ketoconazol e 2 % shampoo 2022-11 0 00:00: 00 Yes [id number] Apply to area(s) once daily as needed for Itching. [facility] triamcinolo ne acetonide 0.1 % cream 2022-11 0 00:00: 00 Yes [id number] Apply to area(s) 2 (two) times daily. [facility] mometasone 0.1 % lotion 2022-11 0 00:00: 00 Yes [id number] Apply to area(s) 2 (two) times daily. Avoid face, armpits, and groin. [facility] ketoconazol e 2 % shampoo 2022-11 0 00:00: 00 Yes [id number] Apply to area(s) once daily as needed for Itching. [facility] triamcinolo ne acetonide 0.1 % cream 2022-11 0-20 00:00: 00 Yes [id number] Apply to area(s) 2 (two) times daily. [facility] mometasone 0.1 % lotion 2022-11 0-20 00:00: 00 Yes [id number] Apply to area(s) 2 (two) times daily. Avoid face, armpits, and groin. [facility] ketoconazol e 2 % shampoo 2022-11 0-20 00:00: 00 Yes [id number] Apply to area(s) once daily as needed for Itching. [facility] triamcinolo ne acetonide 0.1 % cream 2022-11 0-20 00:00: 00 Yes [id number] Apply to area(s) 2 (two) times daily. [facility] mometasone 0.1 % lotion 2022-11 020 00:00: 00 Yes [id number] Apply to area(s) 2 (two) times daily. Avoid face, armpits, and groin. [facility] ketoconazol e 2 % shampoo 2022-11 0 00:00: 00 Yes [id number] Apply to area(s) once daily as needed for Itching. [facility] triamcinolo ne acetonide 0.1 % cream 2022-11 0- 00:00: 00 Yes [id number] Apply to area(s) 2 (two) times daily. [facility] mometasone 0.1 % lotion 2022-11 020 00:00: 00 Yes [id number] Apply to area(s) 2 (two) times daily. Avoid face, armpits, and groin. [facility] ketoconazol e 2 % shampoo 2022-11 0 00:00: 00 Yes [id number] Apply to area(s) once daily as needed for Itching. [facility] triamcinolo ne acetonide 0.1 % cream 2022-11 0-20 00:00: 00 Yes [id number] Apply to area(s) 2 (two) times daily. [facility] triamcinolo ne acetonide 0.1 % cream 2022-11 0-20 00:00: 00 12-11 00:00 :00 No [id number] Apply to area(s) 2 (two) times daily. [facility] triamcinolo ne acetonide 0.1 % cream 2022-11 0-20 00:00: 00 12-11 00:00 :00 No [id number] Apply to area(s) 2 (two) times daily. [facility] erythromyci n (ILOTYCIN) 5 mg/gram (0.5 %) ophthalmic ointment 0.5 Inch 2022-11 0 15:45: 00 09-05 15:45 :00 No .5[in_u s] 0.5 Inch, Both Eyes, ONCE, 1 dose, On 09/05/23 at 1045, [facility] erythromyci n 5 mg/gram (0.5 %) ophthalmic ointment 2022-11 0 00:00: 00 Yes [id number] 9104 .5[in_u s] Place 0.5 Inches in both eyes 4 (four) times daily. Continue until you follow up with eye doctor. [facility] erythromyci n 5 mg/gram (0.5 %) ophthalmic ointment 2022-11 0 00:00: 00 Yes [id number] 9104 .5[in_u s] Place 0.5 Inches in both eyes 4 (four) times daily. Continue until you follow up with eye doctor. [facility] erythromyci n 5 mg/gram (0.5 %) ophthalmic ointment 2022-11 0 00:00: 00 Yes [id number] 9104 .5[in_u s] Place 0.5 Inches in both eyes 4 (four) times daily. Continue until you follow up with eye doctor. [facility] erythromyci n 5 mg/gram (0.5 %) ophthalmic ointment 2022-11 0 00:00: 00 Yes [id number] 9104 .5[in_u s] Place 0.5 Inches in both eyes 4 (four) times daily. Continue until you follow up with eye doctor. [facility] erythromyci n 5 mg/gram (0.5 %) ophthalmic ointment 2022-11 0 00:00: 00 Yes [id number] 9104 .5[in_u s] Place 0.5 Inches in both eyes 4 (four) times daily. Continue until you follow up with eye doctor. [facility] erythromyci n 5 mg/gram (0.5 %) ophthalmic ointment 2022-11 0 00:00: 00 Yes [id number] 9104 .5[in_u s] Place 0.5 Inches in both eyes 4 (four) times daily. Continue until you follow up with eye doctor. [facility] erythromyci n 5 mg/gram (0.5 %) ophthalmic ointment 2022-11 0 00:00: 00 Yes [id number] 9104 .5[in_u s] Place 0.5 Inches in both eyes 4 (four) times daily. Continue until you follow up with eye doctor. [facility] erythromyci n 5 mg/gram (0.5 %) ophthalmic ointment 2022-11 0 00:00: 00 Yes [id number] 9104 .5[in_u s] Place 0.5 Inches in both eyes 4 (four) times daily. Continue until you follow up with eye doctor. [facility] erythromyci n 5 mg/gram (0.5 %) ophthalmic ointment 2022-11 0 00:00: 00 Yes [id number] 9104 .5[in_u s] Place 0.5 Inches in both eyes 4 (four) times daily. Continue until you follow up with eye doctor. [facility] erythromyci n 5 mg/gram (0.5 %) ophthalmic ointment 2022-11 0 00:00: 00 Yes [id number] 9104 .5[in_u s] Place 0.5 Inches in both eyes 4 (four) times daily. Continue until you follow up with eye doctor. [facility] erythromyci n 5 mg/gram (0.5 %) ophthalmic ointment 2022-11 0 00:00: 00 Yes [id number] 9104 .5[in_u s] Place 0.5 Inches in both eyes 4 (four) times daily. Continue until you follow up with eye doctor. [facility] erythromyci n 5 mg/gram (0.5 %) ophthalmic ointment 2022-11 0- 00:00: 00 Yes [id number] 9104 .5[in_u s] Place 0.5 Inches in both eyes 4 (four) times daily. Continue until you follow up with eye doctor. [facility] erythromyci n 5 mg/gram (0.5 %) ophthalmic ointment 2022-11 007 00:00: 00 Yes [id number] 9104 .5[in_u s] Place 0.5 Inches in both eyes 4 (four) times daily. Continue until you follow up with eye doctor. [facility] erythromyci n 5 mg/gram (0.5 %) ophthalmic ointment 2022-11 007 00:00: 00 Yes [id number] 9104 .5[in_u s] Place 0.5 Inches in both eyes 4 (four) times daily. Continue until you follow up with eye doctor. [facility] erythromyci n 5 mg/gram (0.5 %) ophthalmic ointment 2022-11 0 00:00: 00 Yes [id number] 9104 .5[in_u s] Place 0.5 Inches in both eyes 4 (four) times daily. Continue until you follow up with eye doctor. [facility] erythromyci n 5 mg/gram (0.5 %) ophthalmic ointment 2022-11 007 00:00: 00 12-11 00:00 :00 No [id number] 9104 .5[in_u s] Place 0.5 Inches in both eyes 4 (four) times daily. Continue until you follow up with eye doctor. [facility] erythromyci n 5 mg/gram (0.5 %) ophthalmic ointment 2022-11 007 00:00: 00 12-11 00:00 :00 No [id number] 9104 .5[in_u s] Place 0.5 Inches in both eyes 4 (four) times daily. Continue until you follow up with eye doctor. [facility] selenium sulfide (DANDRUFF SHAMPOO, SELENIUM,) 1 % suspension 05 00:00: 00 Yes [id number] Apply 5g topically daily on scalp during shower, rinse off after 5 minutes [facility] [place] Tar 2 % Sham -05 00:00: 00 Yes Apply 5g topically daily on scalp during shower, rinse off after 5 [id number] [facility] selenium sulfide (DANDRUFF SHAMPOO, SELENIUM,) 1 % suspension 2022-0 08-04 00:00: 00 Yes Apply 5g topically daily on scalp during shower, rinse off after 5 minutes [facility] Towner Tar 2 % Sham 2022-0 08-04 00:00: 00 Yes Apply 5g topically daily on scalp during shower, rinse off after 5 [id number] [facility] selenium sulfide (DANDRUFF SHAMPOO, SELENIUM,) 1 % suspension 2022-0 08-04 00:00: 00 Yes Apply 5g topically daily on scalp during shower, rinse off after 5 minutes [facility] [place]er Tar 2 % Sham 2022-0 08-04 00:00: 00 Yes Apply 5g topically daily on scalp during shower, rinse off after 5 [id number] [facility] selenium sulfide (DANDRUFF SHAMPOO, SELENIUM,) 1 % suspension 2022-0 08-04 00:00: 00 Yes Apply 5g topically daily on scalp during shower, rinse off after 5 minutes [facility] [place]er Tar 2 % Sham 2022-0 08-04 00:00: 00 Yes Apply 5g topically daily on scalp during shower, rinse off after 5 [id number] [facility] selenium sulfide (DANDRUFF SHAMPOO, SELENIUM,) 1 % suspension 2022-0 08-04 00:00: 00 Yes Apply 5g topically daily on scalp during shower, rinse off after 5 minutes [facility] [place] Tar 2 % Sham 2022-0 08-04 00:00: 00 Yes Apply 5g topically daily on scalp during shower, rinse off after 5 [id number] [facility] selenium sulfide (DANDRUFF SHAMPOO, SELENIUM,) 1 % suspension 2022-0 05 00:00: 00 Yes Apply 5g topically daily on scalp during shower, rinse off after 5 minutes [facility] selenium sulfide (DANDRUFF SHAMPOO, SELENIUM,) 1 % suspension 0 08-04 00:00: 00 Yes Apply 5g topically daily on scalp during shower, rinse off after 5 minutes [facility] selenium sulfide (DANDRUFF SHAMPOO, SELENIUM,) 1 % suspension 2022-0 08-04 00:00: 00 Yes Apply 5g topically daily on scalp during shower, rinse off after 5 minutes [facility] selenium sulfide (DANDRUFF SHAMPOO, SELENIUM,) 1 % suspension 0 08-04 00:00: 00 Yes Apply 5g topically daily on scalp during shower, rinse off after 5 minutes [facility] selenium sulfide (DANDRUFF SHAMPOO, SELENIUM,) 1 % suspension 2022-0 08-04 00:00: 00 Yes Apply 5g topically daily on scalp during shower, rinse off after [facility] (DANDRUFF SHAMPOO, SELENIUM,) 1 % suspension 2022-0 08-04 00:00: 00 Yes Apply 5g topically daily on scalp during shower, rinse off after 5 minutes [facility] sulfide (DANDRUFF SHAMPOO, SELENIUM,) 1 % suspension 08-04 00:00: 00 Yes Apply 5g topically daily on scalp during shower, rinse off after 5 minutes [facility] [place] Tar 2 % Sham 2022-0 08-04 00:00: 00 Yes Apply 5g topically daily on scalp during shower, rinse off after 5 [id number] [facility] selenium sulfide (DANDRUFF SHAMPOO, SELENIUM,) 1 % suspension 0 08-04 00:00: 00 Yes Apply 5g topically daily on scalp during shower, rinse off after 5 minutes [facility] [place] Tar 2 % Sham 2022-0 08-04 00:00: 00 Yes Apply 5g topically daily on scalp during shower, rinse off after 5 [id number] [facility] selenium sulfide (DANDRUFF SHAMPOO, SELENIUM,) 1 % suspension 2022-0 08-04 00:00: 00 Yes Apply 5g topically daily on scalp during shower, rinse off after 5 minutes [facility] [place]er Tar 2 % Sham 3-0 08-04 00:00: 00 Yes Apply 5g topically daily on scalp during shower, rinse off after 5 [id number] [facility] selenium sulfide (DANDRUFF SHAMPOO, SELENIUM,) 1 % suspension 2022-0 08-04 00:00: 00 Yes Apply 5g topically daily on scalp during shower, rinse off after 5 minutes [facility] [place]er Tar 2 % Sham 3-0 - 00:00: 00 Yes Apply 5g topically daily on scalp during shower, rinse off after 5 [id number] [facility] selenium sulfide (DANDRUFF SHAMPOO, SELENIUM,) 1 % suspension 2022-0 08-04 00:00: 00 Yes Apply 5g topically daily on scalp during shower, rinse off after 5 minutes [facility] [place] Tar 2 % Sham 3-0 08-04 00:00: 00 Yes Apply 5g topically daily on scalp during shower, rinse off after 5 [id number] [facility] selenium sulfide (DANDRUFF SHAMPOO, SELENIUM,) 1 % suspension 2022-0 08-04 00:00: 00 Yes Apply 5g topically daily on scalp during shower, rinse off after 5 minutes [facility] [place] Tar 2 % Sham 3-0 08-04 00:00: 00 Yes Apply 5g topically daily on scalp during shower, rinse off after 5 [id number] [facility] selenium sulfide (DANDRUFF SHAMPOO, SELENIUM,) 1 % suspension 2022-0 08-04 00:00: 00 Yes Apply 5g topically daily on scalp during shower, rinse off after 5 minutes [facility] [place] 2 % Sham 3-0 08-04 00:00: 00 Yes Apply 5g topically daily on scalp during shower, rinse off after 5 [id number] [facility] selenium sulfide (DANDRUFF SHAMPOO, SELENIUM,) 1 % suspension 2022-0 08-04 00:00: 00 Yes Apply 5g topically daily on scalp during shower, rinse off after 5 minutes [facility] [place] Tar 2 % Sham 3-0 08-04 00:00: 00 Yes Apply 5g topically daily on scalp during shower, rinse off after 5 [facility] selenium sulfide (DANDRUFF SHAMPOO, SELENIUM,) 1 % suspension 2022-0 08-04 00:00: 00 Yes Apply 5g topically daily on scalp during shower, rinse off after 5 minutes [facility] [place] Tar 2 % Sham 3-0 - 00:00: 00 Yes Apply 5g topically daily on scalp during shower, rinse off after 5 [id number] [facility] selenium sulfide (DANDRUFF SHAMPOO, SELENIUM,) 1 % suspension 2022-0 08-04 00:00: 00 Yes Apply 5g topically daily on scalp during shower, rinse off after 5 minutes [facility] [place] Tar 2 % Sham 3-0 08-04 00:00: 00 Yes Apply 5g topically daily on scalp during shower, rinse off after 5 [id number] [facility] selenium sulfide (DANDRUFF SHAMPOO, SELENIUM,) 1 % suspension 2022-0 08-04 00:00: 00 Yes Apply 5g topically daily on scalp during shower, rinse off after 5 minutes [facility] [place] 2 % Sham 3-0 08-04 00:00: 00 Yes Apply 5g topically daily on scalp during shower, rinse off after 5 [id number] [facility] selenium sulfide (DANDRUFF SHAMPOO, SELENIUM,) 1 % suspension 2022-0 08-04 00:00: 00 Yes Apply 5g topically daily on scalp during shower, rinse off after 5 minutes [facility] [place] Tar 2 % Sham 3-0 08-04 00:00: 00 Yes Apply 5g topically daily on scalp during shower, rinse off after 5 [id number] [facility] selenium sulfide (DANDRUFF SHAMPOO, SELENIUM,) 1 % suspension 2022-0 08-04 00:00: 00 Yes Apply 5g topically daily on scalp during shower, rinse off after 5 minutes [facility] [place] 2 % Sham 3-0 -05 00:00: 00 Yes Apply 5g topically daily on scalp during shower, rinse off after 5 [id number] [facility] selenium sulfide (DANDRUFF SHAMPOO, SELENIUM,) 1 % suspension 2022-0 -05 00:00: 00 Yes Apply 5g topically daily on scalp during shower, rinse off after 5 minutes [facility] [place] Tar 2 % Sham 3-0 9-05 00:00: 00 Yes Apply 5g topically daily on scalp during shower, rinse off after 5 [id number] [facility] selenium sulfide (DANDRUFF SHAMPOO, SELENIUM,) 1 % suspension 3-0 -05 00:00: 00 Yes Apply 5g topically daily on scalp during shower, rinse off after 5 minutes [facility] [place] Tar 2 % Sham 3-0 -05 00:00: 00 Yes Apply 5g topically daily on scalp during shower, rinse off after 5 [id number] [facility] selenium sulfide (DANDRUFF SHAMPOO, SELENIUM,) 1 % suspension 2022-0 05 00:00: 00 Yes Apply 5g topically daily on scalp during shower, rinse off after 5 minutes [facility] [place] Tar 2 % Sham 3-0 -05 00:00: 00 Yes Apply 5g topically daily on scalp during shower, rinse off after 5 [id number] [facility] selenium sulfide (DANDRUFF SHAMPOO, SELENIUM,) 1 % suspension 2022-0 -05 00:00: 00 Yes Apply 5g topically daily on scalp during shower, rinse off after 5 minutes [facility] [place] Tar 2 % Sham 3-0 9-05 00:00: 00 Yes Apply 5g topically daily on scalp during shower, rinse off after 5 [id number] [facility] [place] Tar 2 % Sham 3-0 9-05 00:00: 00 12-11 00:00 :00 No Apply 5g topically daily on scalp during shower, rinse off after 5 [id number] [facility] [place] Tar 2 % Sham 9-05 00:00: 00 12-11 00:00 :00 No [id number] Apply 5g topically daily on scalp during shower, rinse off after 5 [id number] [facility] albuterol 2.5 mg/0.5 mL nebulizer solution 07-07 10:28: 01 Yes 2.5mg Use 0.5 mL as directed every 6 (six) hours as needed for Wheezing. [facility] albuterol 2.5 mg/0.5 mL nebulizer solution 07-07 10:28: 01 Yes 2.5mg Use 0.5 mL as directed every 6 (six) hours as needed for Wheezing. [facility] albuterol 2.5 mg/0.5 mL nebulizer solution 07-07 10:28: 01 Yes 2.5mg Use 0.5 mL as directed every 6 (six) hours as needed for Wheezing. [facility] albuterol 2.5 mg/0.5 mL nebulizer solution 07-07 10:28: 01 Yes 2.5mg Use 0.5 mL as directed every 6 (six) hours as needed for Wheezing. [facility] albuterol 2.5 mg/0.5 mL nebulizer solution 07-07 10:28: 01 Yes 2.5mg Use 0.5 mL as directed every 6 (six) hours as needed for Wheezing. [facility] albuterol 2.5 mg/0.5 mL nebulizer solution 07-07 10:28: 01 Yes 2.5mg Use 0.5 mL as directed every 6 (six) hours as needed for Wheezing. [facility] albuterol 2.5 mg/0.5 mL nebulizer solution 07-07 10:28: 01 Yes 2.5mg Use 0.5 mL as directed every 6 (six) hours as needed for Wheezing. [facility] albuterol 2.5 mg/0.5 mL nebulizer solution 07-07 10:28: Yes 2.5mg Use 0.5 mL as directed every 6 (six) hours as needed for Wheezing. [facility]er[facility] 2.5 mg/0.5 mL nebulizer solution 07-07 10:28: Yes 2.5mg Use 0.5 mL as directed every 6 (six) hours as needed for Wheezing. [facility].5 mg/0.5 mL nebulizer solution 07-07 10:28: Yes 2.5mg Use 0.5 mL as directed every 6 (six) hours as needed for Wheezing. [facility] 2.5 mg/0.5 mL nebulizer solution 07-07 10:28: Yes 2.5mg Use 0.5 mL as directed every 6 (six) hours as needed for Wheezing. [facility]er[facility] 2.5 mg/0.5 mL nebulizer solution 07-07 10:28: Yes 2.5mg Use 0.5 mL as directed every 6 (six) hours as needed for Wheezing. [facility]er[facility] 2.5 mg/0.5 mL nebulizer solution 07-07 10:28: Yes 2.5mg Use 0.5 mL as directed every 6 (six) hours as needed for Wheezing. [facility]er[facility] 2.5 mg/0.5 mL nebulizer solution 07-07 10:28: Yes 2.5mg Use 0.5 mL as directed every 6 (six) hours as needed for Wheezing. [facility]er[facility] 2.5 mg/0.5 mL nebulizer solution 07-07 10:28: Yes 2.5mg Use 0.5 mL as directed every 6 (six) hours as needed for Wheezing. [facility]er[facility] 2.5 mg/0.5 mL nebulizer solution 07-07 10:28: 01 Yes 2.5mg Use 0.5 mL as directed every 6 (six) hours as needed for Wheezing. [facility]er[facility] 2.5 mg/0.5 mL nebulizer solution 07-07 10:28: Yes 2.5mg Use 0.5 mL as directed every 6 (six) hours as needed for Wheezing. [facility] albuterol 2.5 mg/0.5 mL nebulizer solution 07-07 10:28: Yes 2.5mg Use 0.5 mL as directed every 6 (six) hours as needed for Wheezing. [facility] albuterol 2.5 mg/0.5 mL nebulizer solution 07-07 10:28: Yes 2.5mg Use 0.5 mL as directed every 6 (six) hours as needed for Wheezing. [facility] albuterol 2.5 mg/0.5 mL nebulizer solution 07-07 10:28: Yes 2.5mg Use 0.5 mL as directed every 6 (six) hours as needed for Wheezing. [facility] albuterol 2.5 mg/0.5 mL nebulizer solution 07-07 10:28: Yes 2.5mg Use 0.5 mL as directed every 6 (six) hours as needed for Wheezing. [facility] albuterol 2.5 mg/0.5 mL nebulizer solution 07-07 10:28: Yes 2.5mg Use 0.5 mL as directed every 6 (six) hours as needed for Wheezing. [facility] albuterol 90 mcg/actuati on inhaler 07-07 00:00: 00 Yes [id number] 2{puff} Inhale 2 Puffs every 6 (six) hours as needed for Wheezing or Shortness of Breath. [facility] lurasidone (LATUDA) 20 mg tablet 07-07 00:00: 00 Yes [id number] 20mg Take 1 tablet by mouth in the morning. Take with food. [facility] lisinopriL- hydrochloro thiazide 10-12.5 mg per tablet 07-07 00:00: 00 Yes [id number] 1{tbl} Take 1 tablet by mouth in the morning. [facility] SERTraline (ZOLOFT) 25 mg tablet 07-07 00:00: 00 Yes [id number] 25mg Take 1 tablet by mouth in the morning. [facility] albuterol 90 mcg/actuati on inhaler 07-07 00:00: 00 Yes [id number] 2{puff} Inhale 2 Puffs every 6 (six) hours as needed for Wheezing or Shortness of Breath. [facility] lurasidone (LATUDA) 20 mg tablet 07-07 00:00: 00 Yes [id number] 20mg Take 1 tablet by mouth in the morning. Take with food. [facility] lisinopriL- hydrochloro thiazide 10-12.5 mg per tablet 07-07 00:00: 00 Yes [id number] 1{tbl} Take 1 tablet by mouth in the morning. [facility] ofloxacin 0.3 % ophthalmic solution 07-07 00:00: 00 Yes [id number] 1[drp] Place 1 Drop in both eyes 4 (four) times daily. [facility] ciprofloxac in HCl 500 mg tablet 07-07 00:00: 00 Yes [id number] 500mg Take 1 tablet by mouth every 12 (twelve) hours. [facility] SERTraline (ZOLOFT) 25 mg tablet 07-07 00:00: 00 Yes [id number] 25mg Take 1 tablet by mouth in the morning. [facility] albuterol 90 mcg/actuati on inhaler 07-07 00:00: 00 Yes [id number] 2{puff} Inhale 2 Puffs every 6 (six) hours as needed for Wheezing or Shortness of Breath. [facility] lurasidone (LATUDA) 20 mg tablet 07-07 00:00: 00 Yes [id number] 20mg Take 1 tablet by mouth in the morning. Take with food. [facility] lisinopriL- hydrochloro thiazide 10-12.5 mg per tablet 07-07 00:00: 00 Yes [id number] 1{tbl} Take 1 tablet by mouth in the morning. [facility] ofloxacin 0.3 % ophthalmic solution 07-07 00:00: 00 Yes [id number] 1[drp] Place 1 Drop in both eyes 4 (four) times daily. [facility] ciprofloxac in HCl 500 mg tablet 07-07 00:00: 00 Yes [id number] 500mg Take 1 tablet by mouth every 12 (twelve) hours. [facility] SERTraline (ZOLOFT) 25 mg tablet 07-07 00:00: 00 Yes [id number] 25mg Take 1 tablet by mouth in the morning. [facility] albuterol 90 mcg/actuati on inhaler 07-07 00:00: 00 Yes [id number] 2{puff} Inhale 2 Puffs every 6 (six) hours as needed for Wheezing or Shortness of Breath. [facility] lurasidone (LATUDA) 20 mg tablet 07-07 00:00: 00 Yes [id number] 20mg Take 1 tablet by mouth in the morning. Take with food. [facility] lisinopriL- hydrochloro thiazide 10-12.5 mg per tablet 07-07 00:00: 00 Yes [id number] 1{tbl} Take 1 tablet by mouth in the morning. [facility] ofloxacin 0.3 % ophthalmic solution 07-07 00:00: 00 Yes [id number] 1[drp] Place 1 Drop in both eyes 4 (four) times daily. [facility] ciprofloxac in HCl 500 mg tablet 07-07 00:00: 00 Yes [id number] 500mg Take 1 tablet by mouth every 12 (twelve) hours. [facility] SERTraline (ZOLOFT) 25 mg tablet 07-07 00:00: 00 Yes [id number] 25mg Take 1 tablet by mouth in the morning. [facility] albuterol 90 mcg/actuati on inhaler 07-07 00:00: 00 Yes [id number] 2{puff} Inhale 2 Puffs every 6 (six) hours as needed for Wheezing or Shortness of Breath. [facility] lurasidone (LATUDA) 20 mg tablet 07-07 00:00: 00 Yes [id number] 20mg Take 1 tablet by mouth in the morning. Take with food. [facility] lisinopriL- hydrochloro thiazide 10-12.5 mg per tablet 07-07 00:00: 00 Yes [id number] 1{tbl} Take 1 tablet by mouth in the morning. [facility] ofloxacin 0.3 % ophthalmic solution 07-07 00:00: 00 Yes [id number] 1[drp] Place 1 Drop in both eyes 4 (four) times daily. [facility] ciprofloxac in HCl 500 mg tablet 07-07 00:00: 00 Yes [id number] 500mg Take 1 tablet by mouth every 12 (twelve) hours. [facility] SERTraline (ZOLOFT) 25 mg tablet 07-07 00:00: 00 Yes [id number] 25mg Take 1 tablet by mouth in the morning. [facility] albuterol 90 mcg/actuati on inhaler 07-07 00:00: 00 Yes [id number] 2{puff} Inhale 2 Puffs every 6 (six) hours as needed for Wheezing or Shortness of Breath. [facility] lurasidone (LATUDA) 20 mg tablet 07-07 00:00: 00 Yes [id number] 20mg Take 1 tablet by mouth in the morning. Take with food. [facility] lisinopriL- hydrochloro thiazide 10-12.5 mg per tablet 07-07 00:00: 00 Yes [id number] 1{tbl} Take 1 tablet by mouth in the morning. [facility] ofloxacin 0.3 % ophthalmic solution 07-07 00:00: 00 Yes [id number] 1[drp] Place 1 Drop in both eyes 4 (four) times daily. [facility] SERTraline (ZOLOFT) 25 mg tablet 07-07 00:00: 00 Yes [id number] 25mg Take 1 tablet by mouth in the morning. [facility] albuterol 90 mcg/actuati on inhaler 07-07 00:00: 00 Yes [id number] 2{puff} Inhale 2 Puffs every 6 (six) hours as needed for Wheezing or Shortness of Breath. [facility] lurasidone (LATUDA) 20 mg tablet 07-07 00:00: 00 Yes [id number] 20mg Take 1 tablet by mouth in the morning. Take with food. [facility] lisinopriL- hydrochloro thiazide 10-12.5 mg per tablet 07-07 00:00: 00 Yes [id number] 1{tbl} Take 1 tablet by mouth in the morning. [facility] ofloxacin 0.3 % ophthalmic solution 07-07 00:00: 00 Yes [id number] 1[drp] Place 1 Drop in both eyes 4 (four) times daily. [facility] SERTraline (ZOLOFT) 25 mg tablet 07-07 00:00: 00 Yes [id number] 25mg Take 1 tablet by mouth in the morning. [facility] albuterol 90 mcg/actuati on inhaler 07-07 00:00: 00 Yes [id number] 2{puff} Inhale 2 Puffs every 6 (six) hours as needed for Wheezing or Shortness of Breath. [facility] lurasidone (LATUDA) 20 mg tablet 07-07 00:00: 00 Yes [id number] 20mg Take 1 tablet by mouth in the morning. Take with food. [facility] lisinopriL- hydrochloro thiazide 10-12.5 mg per tablet 07-07 00:00: 00 Yes [id number] 1{tbl} Take 1 tablet by mouth in the morning. [facility] ofloxacin 0.3 % ophthalmic solution 07-07 00:00: 00 Yes [id number] 1[drp] Place 1 Drop in both eyes 4 (four) times daily. [facility] SERTraline (ZOLOFT) 25 mg tablet 07-07 00:00: 00 Yes [id number] 25mg Take 1 tablet by mouth in the morning. [facility] albuterol 90 mcg/actuati on inhaler 07-07 00:00: 00 Yes [id number] 2{puff} Inhale 2 Puffs every 6 (six) hours as needed for Wheezing or Shortness of Breath. [facility] lurasidone (LATUDA) 20 mg tablet 07-07 00:00: 00 Yes [id number] 20mg Take 1 tablet by mouth in the morning. Take with food. [facility] lisinopriL- hydrochloro thiazide 10-12.5 mg per tablet 07-07 00:00: 00 Yes [id number] 1{tbl} Take 1 tablet by mouth in the morning. [facility] ofloxacin 0.3 % ophthalmic solution 07-07 00:00: 00 Yes [id number] 1[drp] Place 1 Drop in both eyes 4 (four) times daily. [facility] SERTraline (ZOLOFT) 25 mg tablet 07-07 00:00: 00 Yes [id number] 25mg Take 1 tablet by mouth in the morning. [facility] albuterol 90 mcg/actuati on inhaler 07-07 00:00: 00 Yes [id number] 2{puff} Inhale 2 Puffs every 6 (six) hours as needed for Wheezing or Shortness of Breath. [facility] lurasidone (LATUDA) 20 mg tablet 07-07 00:00: 00 Yes [id number] 20mg Take 1 tablet by mouth in the morning. Take with food. [facility] lisinopriL- hydrochloro thiazide 10-12.5 mg per tablet 07-07 00:00: 00 Yes [id number] 1{tbl} Take 1 tablet by mouth in the morning. [facility] ofloxacin 0.3 % ophthalmic solution 07-07 00:00: 00 Yes [id number] 1[drp] Place 1 Drop in both eyes 4 (four) times daily. [facility] SERTraline (ZOLOFT) 25 mg tablet 07-07 00:00: 00 Yes [id number] 25mg Take 1 tablet by mouth in the morning. [facility] albuterol 90 mcg/actuati on inhaler 07-07 00:00: 00 Yes [id number] 2{puff} Inhale 2 Puffs every 6 (six) hours as needed for Wheezing or Shortness of Breath. [facility] lurasidone (LATUDA) 20 mg tablet 07-07 00:00: 00 Yes [id number] 20mg Take 1 tablet by mouth in the morning. Take with food. [facility] lisinopriL- hydrochloro thiazide 10-12.5 mg per tablet 07-07 00:00: 00 Yes [id number] 1{tbl} Take 1 tablet by mouth in the morning. [facility] ofloxacin 0.3 % ophthalmic solution 07-07 00:00: 00 Yes [id number] 1[drp] Place 1 Drop in both eyes 4 (four) times daily. [facility] SERTraline (ZOLOFT) 25 mg tablet 07-07 00:00: 00 Yes [id number] 25mg Take 1 tablet by mouth in the morning. [facility] albuterol 90 mcg/actuati on inhaler 07-07 00:00: 00 Yes [id number] 2{puff} Inhale 2 Puffs every 6 (six) hours as needed for Wheezing or Shortness of Breath. [facility] lurasidone (LATUDA) 20 mg tablet 07-07 00:00: 00 Yes [id number] 20mg Take 1 tablet by mouth in the morning. Take with food. [facility] lisinopriL- hydrochloro thiazide 10-12.5 mg per tablet 07-07 00:00: 00 Yes [id number] 1{tbl} Take 1 tablet by mouth in the morning. [facility] ofloxacin 0.3 % ophthalmic solution 07-07 00:00: 00 Yes [id number] 1[drp] Place 1 Drop in both eyes 4 (four) times daily. [facility] SERTraline (ZOLOFT) 25 mg tablet 07-07 00:00: 00 Yes [id number] 25mg Take 1 tablet by mouth in the morning. [facility] albuterol 90 mcg/actuati on inhaler 07-07 00:00: 00 Yes [id number] 2{puff} Inhale 2 Puffs every 6 (six) hours as needed for Wheezing or Shortness of Breath. [facility] lurasidone (LATUDA) 20 mg tablet 07-07 00:00: 00 Yes [id number] 20mg Take 1 tablet by mouth in the morning. Take with food. [facility] lisinopriL- hydrochloro thiazide 10-12.5 mg per tablet 07-07 00:00: 00 Yes [id number] 1{tbl} Take 1 tablet by mouth in the morning. [facility] ofloxacin 0.3 % ophthalmic solution 07-07 00:00: 00 Yes [id number] 1[drp] Place 1 Drop in both eyes 4 (four) times daily. [facility] SERTraline (ZOLOFT) 25 mg tablet 07-07 00:00: 00 Yes [id number] 25mg Take 1 tablet by mouth in the morning. [facility] albuterol 90 mcg/actuati on inhaler 07-07 00:00: 00 Yes [id number] 2{puff} Inhale 2 Puffs every 6 (six) hours as needed for Wheezing or Shortness of Breath. [facility] lurasidone (LATUDA) 20 mg tablet 07-07 00:00: 00 Yes [id number] 20mg Take 1 tablet by mouth in the morning. Take with food. [facility] lisinopriL- hydrochloro thiazide 10-12.5 mg per tablet 07-07 00:00: 00 Yes [id number] 1{tbl} Take 1 tablet by mouth in the morning. [facility] ofloxacin 0.3 % ophthalmic solution 07-07 00:00: 00 Yes [id number] 1[drp] Place 1 Drop in both eyes 4 (four) times daily. [facility] SERTraline (ZOLOFT) 25 mg tablet 07-07 00:00: 00 Yes [id number] 25mg Take 1 tablet by mouth in the morning. [facility] albuterol 90 mcg/actuati on inhaler 07-07 00:00: 00 Yes [id number] 2{puff} Inhale 2 Puffs every 6 (six) hours as needed for Wheezing or Shortness of Breath. [facility] lurasidone (LATUDA) 20 mg tablet 07-07 00:00: 00 Yes [id number] 20mg Take 1 tablet by mouth in the morning. Take with food. [facility] lisinopriL- hydrochloro thiazide 10-12.5 mg per tablet 07-07 00:00: 00 Yes [id number] 1{tbl} Take 1 tablet by mouth in the morning. [facility] ofloxacin 0.3 % ophthalmic solution 07-07 00:00: 00 Yes [id number] 1[drp] Place 1 Drop in both eyes 4 (four) times daily. [facility] SERTraline (ZOLOFT) 25 mg tablet 07-07 00:00: 00 Yes [id number] 25mg Take 1 tablet by mouth in the morning. [facility] albuterol 90 mcg/actuati on inhaler 07-07 00:00: 00 Yes [id number] 2{puff} Inhale 2 Puffs every 6 (six) hours as needed for Wheezing or Shortness of Breath. [facility] lurasidone (LATUDA) 20 mg tablet 07-07 00:00: 00 Yes [id number] 20mg Take 1 tablet by mouth in the morning. Take with food. [facility] lisinopriL- hydrochloro thiazide 10-12.5 mg per tablet 07-07 00:00: 00 Yes [id number] 1{tbl} Take 1 tablet by mouth in the morning. [facility] ofloxacin 0.3 % ophthalmic solution 07-07 00:00: 00 Yes [id number] 1[drp] Place 1 Drop in both eyes 4 (four) times daily. [facility] SERTraline (ZOLOFT) 25 mg tablet 07-07 00:00: 00 Yes [id number] 25mg Take 1 tablet by mouth in the morning. [facility] albuterol 90 mcg/actuati on inhaler 07-07 00:00: 00 Yes [id number] 2{puff} Inhale 2 Puffs every 6 (six) hours as needed for Wheezing or Shortness of Breath. [facility] lurasidone (LATUDA) 20 mg tablet 07-07 00:00: 00 Yes [id number] 20mg Take 1 tablet by mouth in the morning. Take with food. [facility] lisinopriL- hydrochloro thiazide 10-12.5 mg per tablet 07-07 00:00: 00 Yes [id number] 1{tbl} Take 1 tablet by mouth in the morning. [facility] ofloxacin 0.3 % ophthalmic solution 07-07 00:00: 00 Yes [id number] 1[drp] Place 1 Drop in both eyes 4 (four) times daily. [facility] SERTraline (ZOLOFT) 25 mg tablet 07-07 00:00: 00 Yes [id number] 25mg Take 1 tablet by mouth in the morning. [facility] albuterol 90 mcg/actuati on inhaler 07-07 00:00: 00 Yes [id number] 2{puff} Inhale 2 Puffs every 6 (six) hours as needed for Wheezing or Shortness of Breath. [facility] lurasidone (LATUDA) 20 mg tablet 07-07 00:00: 00 Yes [id number] 20mg Take 1 tablet by mouth in the morning. Take with food. [facility] lisinopriL- hydrochloro thiazide 10-12.5 mg per tablet 07-07 00:00: 00 Yes [id number] 1{tbl} Take 1 tablet by mouth in the morning. [facility] ofloxacin 0.3 % ophthalmic solution 07-07 00:00: 00 Yes [id number] 1[drp] Place 1 Drop in both eyes 4 (four) times daily. [facility] SERTraline (ZOLOFT) 25 mg tablet 07-07 00:00: 00 Yes [id number] 25mg Take 1 tablet by mouth in the morning. [facility] albuterol 90 mcg/actuati on inhaler 07-07 00:00: 00 Yes [id number] 2{puff} Inhale 2 Puffs every 6 (six) hours as needed for Wheezing or Shortness of Breath. [facility] lurasidone (LATUDA) 20 mg tablet 07-07 00:00: 00 Yes [id number] 20mg Take 1 tablet by mouth in the morning. Take with food. [facility] lisinopriL- hydrochloro thiazide 10-12.5 mg per tablet 07-07 00:00: 00 Yes [id number] 1{tbl} Take 1 tablet by mouth in the morning. [facility] ofloxacin 0.3 % ophthalmic solution 07-07 00:00: 00 Yes [id number] 1[drp] Place 1 Drop in both eyes 4 (four) times daily. [facility] SERTraline (ZOLOFT) 25 mg tablet 07-07 00:00: 00 Yes [id number] 25mg Take 1 tablet by mouth in the morning. [facility] albuterol 90 mcg/actuati on inhaler 07-07 00:00: 00 Yes [id number] 2{puff} Inhale 2 Puffs every 6 (six) hours as needed for Wheezing or Shortness of Breath. [facility] lurasidone (LATUDA) 20 mg tablet 07-07 00:00: 00 Yes [id number] 20mg Take 1 tablet by mouth in the morning. Take with food. [facility] lisinopriL- hydrochloro thiazide 10-12.5 mg per tablet 07-07 00:00: 00 Yes [id number] 1{tbl} Take 1 tablet by mouth in the morning. [facility] ofloxacin 0.3 % ophthalmic solution 07-07 00:00: 00 Yes [id number] 1[drp] Place 1 Drop in both eyes 4 (four) times daily. [facility] SERTraline (ZOLOFT) 25 mg tablet 07-07 00:00: 00 Yes [id number] 25mg Take 1 tablet by mouth in the morning. [facility] albuterol 90 mcg/actuati on inhaler 07-07 00:00: 00 Yes [id number] 2{puff} Inhale 2 Puffs every 6 (six) hours as needed for Wheezing or Shortness of Breath. [facility] lurasidone (LATUDA) 20 mg tablet 07-07 00:00: 00 Yes [id number] 20mg Take 1 tablet by mouth in the morning. Take with food. [facility] lisinopriL- hydrochloro thiazide 10-12.5 mg per tablet 07-07 00:00: 00 Yes [id number] 1{tbl} Take 1 tablet by mouth in the morning. [facility] ofloxacin 0.3 % ophthalmic solution 07-07 00:00: 00 Yes [id number] 1[drp] Place 1 Drop in both eyes 4 (four) times daily. [facility] SERTraline (ZOLOFT) 25 mg tablet 07-07 00:00: 00 Yes [id number] 25mg Take 1 tablet by mouth in the morning. [facility] albuterol 90 mcg/actuati on inhaler 07-07 00:00: 00 Yes [id number] 2{puff} Inhale 2 Puffs every 6 (six) hours as needed for Wheezing or Shortness of Breath. [facility] lurasidone (LATUDA) 20 mg tablet 07-07 00:00: 00 Yes [id number] 20mg Take 1 tablet by mouth in the morning. Take with food. [facility] lisinopriL- hydrochloro thiazide 10-12.5 mg per tablet 07-07 00:00: 00 Yes [id number] 1{tbl} Take 1 tablet by mouth in the morning. [facility] ofloxacin 0.3 % ophthalmic solution 07-07 00:00: 00 Yes [id number] 1[drp] Place 1 Drop in both eyes 4 (four) times daily. [facility] SERTraline (ZOLOFT) 25 mg tablet 07-07 00:00: 00 Yes [id number] 25mg Take 1 tablet by mouth in the morning. [facility] albuterol 90 mcg/actuati on inhaler 07-07 00:00: 00 Yes [id number] 2{puff} Inhale 2 Puffs every 6 (six) hours as needed for Wheezing or Shortness of Breath. [facility] lurasidone (LATUDA) 20 mg tablet 07-07 00:00: 00 Yes [id number] 20mg Take 1 tablet by mouth in the morning. Take with food. [facility] lisinopriL- hydrochloro thiazide 10-12.5 mg per tablet 07-07 00:00: 00 Yes [id number] 1{tbl} Take 1 tablet by mouth in the morning. [facility] ofloxacin 0.3 % ophthalmic solution 07-07 00:00: 00 Yes [id number] 1[drp] Place 1 Drop in both eyes 4 (four) times daily. [facility] SERTraline (ZOLOFT) 25 mg tablet 07-07 00:00: 00 Yes [id number] 25mg Take 1 tablet by mouth in the morning. [facility] albuterol 90 mcg/actuati on inhaler 07-07 00:00: 00 Yes [id number] 2{puff} Inhale 2 Puffs every 6 (six) hours as needed for Wheezing or Shortness of Breath. [facility] lurasidone (LATUDA) 20 mg tablet 07-07 00:00: 00 Yes [id number] 20mg Take 1 tablet by mouth in the morning. Take with food. [facility] lisinopriL- hydrochloro thiazide 10-12.5 mg per tablet 07-07 00:00: 00 Yes [id number] 1{tbl} Take 1 tablet by mouth in the morning. [facility] ofloxacin 0.3 % ophthalmic solution 07-07 00:00: 00 Yes [id number] 1[drp] Place 1 Drop in both eyes 4 (four) times daily. [facility] SERTraline (ZOLOFT) 25 mg tablet 07-07 00:00: 00 Yes [id number] 25mg Take 1 tablet by mouth in the morning. [facility] albuterol 90 mcg/actuati on inhaler 07-07 00:00: 00 Yes [id number] 2{puff} Inhale 2 Puffs every 6 (six) hours as needed for Wheezing or Shortness of Breath. [facility] lurasidone (LATUDA) 20 mg tablet 07-07 00:00: 00 Yes [id number] 20mg Take 1 tablet by mouth in the morning. Take with food. [facility] lisinopriL- hydrochloro thiazide 10-12.5 mg per tablet 07-07 00:00: 00 Yes [id number] 1{tbl} Take 1 tablet by mouth in the morning. [facility] ofloxacin 0.3 % ophthalmic solution 07-07 00:00: 00 Yes [id number] 1[drp] Place 1 Drop in both eyes 4 (four) times daily. [facility] SERTraline (ZOLOFT) 25 mg tablet 07-07 00:00: 00 Yes [id number] 25mg Take 1 tablet by mouth in the morning. [facility] albuterol 90 mcg/actuati on inhaler 07-07 00:00: 00 Yes [id number] 2{puff} Inhale 2 Puffs every 6 (six) hours as needed for Wheezing or Shortness of Breath. [facility] lurasidone (LATUDA) 20 mg tablet 07-07 00:00: 00 Yes [id number] 20mg Take 1 tablet by mouth in the morning. Take with food. [facility] lisinopriL- hydrochloro thiazide 10-12.5 mg per tablet 07-07 00:00: 00 Yes [id number] 1{tbl} Take 1 tablet by mouth in the morning. [facility] ofloxacin 0.3 % ophthalmic solution 07-07 00:00: 00 Yes [id number] 1[drp] Place 1 Drop in both eyes 4 (four) times daily. [facility] SERTraline (ZOLOFT) 25 mg tablet 07-07 00:00: 00 Yes [id number] 25mg Take 1 tablet by mouth in the morning. [facility] albuterol 90 mcg/actuati on inhaler 07-07 00:00: 00 Yes [id number] 2{puff} Inhale 2 Puffs every 6 (six) hours as needed for Wheezing or Shortness of Breath. [facility] lurasidone (LATUDA) 20 mg tablet 07-07 00:00: 00 Yes [id number] 20mg Take 1 tablet by mouth in the morning. Take with food. [facility] lisinopriL- hydrochloro thiazide 10-12.5 mg per tablet 07-07 00:00: 00 Yes [id number] 1{tbl} Take 1 tablet by mouth in the morning. [facility] ofloxacin 0.3 % ophthalmic solution 07-07 00:00: 00 Yes [id number] 1[drp] Place 1 Drop in both eyes 4 (four) times daily. [facility] SERTraline (ZOLOFT) 25 mg tablet 07-07 00:00: 00 Yes [id number] 25mg Take 1 tablet by mouth in the morning. [facility] albuterol 90 mcg/actuati on inhaler 07-07 00:00: 00 Yes [id number] 2{puff} Inhale 2 Puffs every 6 (six) hours as needed for Wheezing or Shortness of Breath. [facility] lurasidone (LATUDA) 20 mg tablet 0 8 00:00: 00 Yes [id number] 20mg Take 1 tablet by mouth in the morning. Take with food. [facility] lisinopriL- hydrochloro thiazide 10-12.5 mg per tablet 8 00:00: 00 Yes [id number] 1{tbl} Take 1 tablet by mouth in the morning. [facility] SERTraline (ZOLOFT) 25 mg tablet 0 8 00:00: 00 Yes [id number] 25mg Take 1 tablet by mouth in the morning. [facility] albuterol 90 mcg/actuati on inhaler 0 07-07 00:00: 00 Yes [id number] 2{puff} Inhale 2 Puffs every 6 (six) hours as needed for Wheezing or Shortness of Breath. [facility] lurasidone (LATUDA) 20 mg tablet 0 07-07 00:00: 00 Yes [id number] 20mg Take 1 tablet by mouth in the morning. Take with food. [facility] lisinopriL- hydrochloro thiazide 10-12.5 mg per tablet 07-07 00:00: 00 Yes [id number] 1{tbl} Take 1 tablet by mouth in the morning. [facility] SERTraline (ZOLOFT) 25 mg tablet 0 07-07 00:00: 00 Yes [id number] 25mg Take 1 tablet by mouth in the morning. [facility] albuterol 90 mcg/actuati on inhaler 0 8 00:00: 00 Yes [id number] 2{puff} Inhale 2 Puffs every 6 (six) hours as needed for Wheezing or Shortness of Breath. [facility] lurasidone (LATUDA) 20 mg tablet 2022-0 8 00:00: 00 Yes [id number] 20mg Take 1 tablet by mouth in the morning. Take with food. [facility] lisinopriL- hydrochloro thiazide 10-12.5 mg per tablet 0 07-07 00:00: 00 Yes [id number] 1{tbl} Take 1 tablet by mouth in the morning. [facility] SERTraline (ZOLOFT) 25 mg tablet 07-07 00:00: 00 Yes [id number] 25mg Take 1 tablet by mouth in the morning. [facility] albuterol 90 mcg/actuati on inhaler 07-07 00:00: 00 Yes [id number] 2{puff} Inhale 2 Puffs every 6 (six) hours as needed for Wheezing or Shortness of Breath. [facility] lurasidone (LATUDA) 20 mg tablet 07-07 00:00: 00 Yes [id number] 20mg Take 1 tablet by mouth in the morning. Take with food. [facility] lisinopriL- hydrochloro thiazide 10-12.5 mg per tablet 07-07 00:00: 00 Yes [id number] 1{tbl} Take 1 tablet by mouth in the morning. [facility] SERTraline (ZOLOFT) 25 mg tablet 07-07 00:00: 00 Yes [id number] 25mg Take 1 tablet by mouth in the morning. [facility] albuterol 90 mcg/actuati on inhaler 07-07 00:00: 00 Yes [id number] 2{puff} Inhale 2 Puffs every 6 (six) hours as needed for Wheezing or Shortness of Breath. [facility] lurasidone (LATUDA) 20 mg tablet 0 07-07 00:00: 00 Yes [id number] 20mg Take 1 tablet by mouth in the morning. Take with food. [facility] lisinopriL- hydrochloro thiazide 10-12.5 mg per tablet 07-07 00:00: 00 Yes [id number] 1{tbl} Take 1 tablet by mouth in the morning. [facility] SERTraline (ZOLOFT) 25 mg tablet 0 8 00:00: 00 Yes [id number] 25mg Take 1 tablet by mouth in the morning. [facility] ofloxacin 0.3 % ophthalmic solution 07-07 00:00: 00 12-11 00:00 :00 No [id number] 1[drp] Place 1 Drop in both eyes 4 (four) times daily. [facility] ofloxacin 0.3 % ophthalmic solution 07-07 00:00: 00 12-11 00:00 :00 No [id number] 1[drp] Place 1 Drop in both eyes 4 (four) times daily. [facility] ciprofloxac in HCl 500 mg tablet 07-07 00:00: 00 08-04 00:00 :00 No [id number] 500mg Take 1 tablet by mouth every 12 (twelve) hours. [facility] ciprofloxac in HCl 500 mg tablet 07-07 00:00: 00 08-04 00:00 :00 No [id number] 500mg Take 1 tablet by mouth every 12 (twelve) hours. [facility] albuterol 2.5 mg/0.5 mL nebulizer solution 07-17 11:38: 24 Yes 1{ampul e} Use 1 Ampule as directed every 6 (six) hours as needed for Wheezing. [facility] albuterol 2.5 mg/0.5 mL nebulizer solution 07-17 11:38: 24 Yes 1{ampul e} Use 1 Ampule as directed every 6 (six) hours as needed for Wheezing. [facility] ibuprofen 600 mg tablet 07-17 00:00: 00 Yes [id number] 600mg Take 1 tablet by mouth every 6 (six) hours as needed for Pain (scale 1-3) or Pain (scale 4-6). [facility] ibuprofen 600 mg tablet 07-17 00:00: 00 Yes [id number] 600mg Take 1 tablet by mouth every 6 (six) hours as needed for Pain (scale 1-3) or Pain (scale 4-6). [facility] ibuprofen 600 mg tablet 18 00:00: 00 07-07 00:00 :00 No [id number] 600mg Take 1 tablet by mouth every 6 (six) hours as needed for Pain (scale 1-3) or Pain (scale 4-6). [facility] ibuprofen 600 mg tablet 07-17 00:00: 00 07-07 00:00 :00 No [id number] 600mg Take 1 tablet by mouth every 6 (six) hours as needed for Pain (scale 1-3) or Pain (scale 4-6). [facility] ibuprofen 600 mg tablet 07-17 00:00: 00 07-07 00:00 :00 No [id number] 600mg Take 1 tablet by mouth every 6 (six) hours as needed for Pain (scale 1-3) or Pain (scale 4-6). [facility] albuterol 90 mcg/actuati on inhaler 0 07-05 00:00: 00 Yes [id number] 2{puff} Inhale 2 Puffs every 6 (six) hours as needed for Wheezing or Shortness of Breath. [facility] fluticasone propionate 50 mcg/actuati on nasal spray 07-05 00:00: 00 Yes 2{spray } Use 2 Sprays in each nostril daily. [facility] albuterol 90 mcg/actuati on inhaler 0 07-05 00:00: 00 Yes [id number] 2{puff} Inhale 2 Puffs every 6 (six) hours as needed for Wheezing or Shortness of Breath. [facility] fluticasone propionate 50 mcg/actuati on nasal spray 0 07-05 00:00: 00 Yes 2{spray } Use 2 Sprays in each nostril daily. [facility] fluticasone propionate 50 mcg/actuati on nasal spray 07-05 00:00: 00 Yes 2{spray } Use 2 Sprays in each nostril daily. [facility] fluticasone propionate 50 mcg/actuati on nasal spray 0 07-05 00:00: 00 Yes 2{spray } Use 2 Sprays in each nostril daily. [facility] fluticasone propionate 50 mcg/actuati on nasal spray 2020-0 8-06 00:00: 00 Yes 2{spray } Use 2 Sprays in each nostril daily. [facility] fluticasone propionate 50 mcg/actuati on nasal spray 2020-0 8-06 00:00: 00 Yes 2{spray } Use 2 Sprays in each nostril daily. [facility] fluticasone propionate 50 mcg/actuati on nasal spray 2020-0 8-06 00:00: 00 Yes 2{spray } Use 2 Sprays in each nostril daily. [facility] fluticasone propionate 50 mcg/actuati on nasal spray 2020-0 8-06 00:00: 00 Yes 2{spray } Use 2 Sprays in each nostril daily. [facility] fluticasone propionate 50 mcg/actuati on nasal spray 2020-0 8-06 00:00: 00 Yes 2{spray } Use 2 Sprays in each nostril daily. [facility] fluticasone propionate 50 mcg/actuati on nasal spray 2020-0 8-06 00:00: 00 Yes 2{spray } Use 2 Sprays in each nostril daily. [facility] fluticasone propionate 50 mcg/actuati on nasal spray 2020-0 8-06 00:00: 00 Yes 2{spray } Use 2 Sprays in each nostril daily. [facility] fluticasone propionate 50 mcg/actuati on nasal spray 2020-0 8-06 00:00: 00 Yes 2{spray } Use 2 Sprays in each nostril daily. [facility] fluticasone propionate 50 mcg/actuati on nasal spray 2020-0 8-06 00:00: 00 Yes 2{spray } Use 2 Sprays in each nostril daily. [facility] fluticasone propionate 50 mcg/actuati on nasal spray 2020-0 8-06 00:00: 00 Yes 2{spray } Use 2 Sprays in each nostril daily. [facility] fluticasone propionate 50 mcg/actuati on nasal spray 2020-0 8-06 00:00: 00 Yes 2{spray } Use 2 Sprays in each nostril daily. [facility] fluticasone propionate 50 mcg/actuati on nasal spray 07-05 00:00: 00 Yes 2{spray } Use 2 Sprays in each nostril daily. [facility] fluticasone propionate 50 mcg/actuati on nasal spray 07-05 00:00: 00 Yes 2{spray } Use 2 Sprays in each nostril daily. [facility] fluticasone propionate 50 mcg/actuati on nasal spray 07-05 00:00: 00 09-24 00:00 :00 No 2{spray } Use 2 Sprays in each nostril daily. [facility] fluticasone propionate 50 mcg/actuati on nasal spray 07-05 00:00: 00 09-24 00:00 :00 No 2{spray } Use 2 Sprays in each nostril daily. [facility] albuterol 90 mcg/actuati on inhaler 07-05 00:00: 00 07-07 00:00 :00 No [id number] 2{puff} Inhale 2 Puffs every 6 (six) hours as needed for Wheezing or Shortness of Breath. [facility] albuterol 90 mcg/actuati on inhaler 07-05 00:00: 00 07-07 00:00 :00 No [id number] 2{puff} Inhale 2 Puffs every 6 (six) hours as needed for Wheezing or Shortness of Breath. [facility] albuterol 90 mcg/actuati on inhaler 07-05 00:00: 00 07-07 00:00 :00 No [id number] 2{puff} Inhale 2 Puffs every 6 (six) hours as needed for Wheezing or Shortness of Breath. [facility] magnesium oxide 400 mg (241.3 mg magnesium) tablet 8 00:00: 00 Yes [id number] 400mg Take 1 tablet by mouth daily. [facility] magnesium oxide 400 mg (241.3 mg magnesium) tablet 07-02 00:00: 00 Yes [id number] 400mg Take 1 tablet by mouth daily. [facility] magnesium oxide 400 mg (241.3 mg magnesium) tablet 07-02 00:00: 00 Yes [id number] 400mg Take 1 tablet by mouth daily. [facility] mg (241.3 mg magnesium) tablet 0 07-02 00:00: 00 Yes [id number] 400mg Take 1 tablet by mouth daily. [facility] magnesium oxide 400 mg (241.3 mg magnesium) tablet 0 07-02 00:00: 00 Yes [id number] 400mg Take 1 tablet by mouth daily. [facility] magnesium oxide 400 mg (241.3 mg magnesium) tablet 07-02 00:00: 00 Yes [id number] 400mg Take 1 tablet by mouth daily. [facility] magnesium oxide 400 mg (241.3 mg magnesium) tablet 07-02 00:00: 00 Yes [id number] 400mg Take 1 tablet by mouth daily. [facility] magnesium oxide 400 mg (241.3 mg magnesium) tablet 07-02 00:00: 00 Yes [id number] 400mg Take 1 tablet by mouth daily. [facility] magnesium oxide 400 mg (241.3 mg magnesium) tablet 07-02 00:00: 00 Yes [id number] 400mg Take 1 tablet by mouth daily. [facility] magnesium oxide 400 mg (241.3 mg magnesium) tablet 07-02 00:00: 00 Yes [id number] 400mg Take 1 tablet by mouth daily. [facility] magnesium oxide 400 mg (241.3 mg magnesium) tablet 0 07-02 00:00: 00 Yes [id number] 400mg Take 1 tablet by mouth daily. [facility] magnesium oxide 400 mg (241.3 mg magnesium) tablet 07-02 00:00: 00 Yes [id number] 400mg Take 1 tablet by mouth daily. [facility] magnesium oxide 400 mg (241.3 mg magnesium) tablet 0 07-02 00:00: 00 Yes [id number] 400mg Take 1 tablet by mouth daily. [facility] magnesium oxide 400 mg (241.3 mg magnesium) tablet 2019-0 07-02 00:00: 00 Yes [id number] 400mg Take 1 tablet by mouth daily. [facility] 400 mg (241.3 mg magnesium) tablet 0 07-02 00:00: 00 Yes [id number] 400mg Take 1 tablet by mouth daily. [facility] 400 mg (241.3 mg magnesium) tablet 0 07-02 00:00: 00 Yes [id number] 400mg Take 1 tablet by mouth daily. [facility] magnesium oxide 400 mg (241.3 mg magnesium) tablet 0 07-02 00:00: 00 Yes [id number] 400mg Take 1 tablet by mouth daily. [facility] magnesium oxide 400 mg (241.3 mg magnesium) tablet 0 07-02 00:00: 00 Yes [id number] 400mg Take 1 tablet by mouth daily. [facility] magnesium oxide 400 mg (241.3 mg magnesium) tablet 0 07-02 00:00: 00 Yes [id number] 400mg Take 1 tablet by mouth daily. [facility] magnesium oxide 400 mg (241.3 mg magnesium) tablet 0 07-02 00:00: 00 Yes [id number] 400mg Take 1 tablet by mouth daily. [facility] magnesium oxide 400 mg (241.3 mg magnesium) tablet 0 07-02 00:00: 00 Yes [id number] 400mg Take 1 tablet by mouth daily. [facility] magnesium oxide 400 mg (241.3 mg magnesium) tablet 0 07-02 00:00: 00 Yes [id number] 400mg Take 1 tablet by mouth daily. [facility] magnesium oxide 400 mg (241.3 mg magnesium) tablet 0 07-02 00:00: 00 Yes [id number] 400mg Take 1 tablet by mouth daily. [facility] magnesium oxide 400 mg (241.3 mg magnesium) tablet 2019-0 07-02 00:00: 00 Yes [id number] 400mg Take 1 tablet by mouth daily. [facility] magnesium oxide 400 mg (241.3 mg magnesium) tablet 07-02 00:00: 00 Yes [id number] 400mg Take 1 tablet by mouth daily. [facility] magnesium oxide 400 mg (241.3 mg magnesium) tablet 07-02 00:00: 00 Yes [id number] 400mg Take 1 tablet by mouth daily. [facility] magnesium oxide 400 mg (241.3 mg magnesium) tablet 07-02 00:00: 00 Yes [id number] 400mg Take 1 tablet by mouth daily. [facility] magnesium oxide 400 mg (241.3 mg magnesium) tablet 07-02 00:00: 00 Yes [id number] 400mg Take 1 tablet by mouth daily. [facility] magnesium oxide 400 mg (241.3 mg magnesium) tablet 07-02 00:00: 00 12-11 00:00 :00 No [id number] 400mg Take 1 tablet by mouth daily. [facility] magnesium oxide 400 mg (241.3 mg magnesium) tablet 07-02 00:00: 00 12-11 00:00 :00 No [id number] 400mg Take 1 tablet by mouth daily. [facility] ferrous sulfate 325 mg (65 mg iron) tablet 05-26 00:00: 00 Yes [id number] 325mg Take 1 tablet by mouth daily. [facility] ferrous sulfate 325 mg (65 mg iron) tablet 05-26 00:00: 00 Yes [id number] 325mg Take 1 tablet by mouth daily. [facility] ferrous sulfate 325 mg (65 mg iron) tablet 05-26 00:00: 00 Yes [id number] 325mg Take 1 tablet by mouth daily. [facility] ferrous sulfate 325 mg (65 mg iron) tablet 05-26 00:00: 00 Yes [id number] 325mg Take 1 tablet by mouth daily. [facility] ferrous sulfate 325 mg (65 mg iron) tablet 05-26 00:00: 00 Yes [id number] 325mg Take 1 tablet by mouth daily. [facility] ferrous sulfate 325 mg (65 mg iron) tablet 05-26 00:00: 00 Yes [id number] 325mg Take 1 tablet by mouth daily. [facility] ferrous sulfate 325 mg (65 mg iron) tablet 05-26 00:00: 00 Yes [id number] 325mg Take 1 tablet by mouth daily. [facility] ferrous sulfate 325 mg (65 mg iron) tablet 05-26 00:00: 00 Yes [id number] 325mg Take 1 tablet by mouth daily. [facility] ferrous sulfate 325 mg (65 mg iron) tablet 05-26 00:00: 00 Yes [id number] 325mg Take 1 tablet by mouth daily. [facility] ferrous sulfate 325 mg (65 mg iron) tablet 05-26 00:00: 00 Yes [id number] 325mg Take 1 tablet by mouth daily. [facility] ferrous sulfate 325 mg (65 mg iron) tablet 05-26 00:00: 00 Yes [id number] 325mg Take 1 tablet by mouth daily. [facility] ferrous sulfate 325 mg (65 mg iron) tablet 05-26 00:00: 00 Yes [id number] 325mg Take 1 tablet by mouth daily. [facility] ibuprofen 600 mg tablet 05-26 00:00: 00 Yes [id number] 600mg Take 1 tablet by mouth every 6 (six) hours as needed (Pain). Take with food or milk. [facility] ferrous sulfate 325 mg (65 mg iron) tablet 05-26 00:00: 00 Yes [id number] 325mg Take 1 tablet by mouth daily. [facility] ibuprofen 600 mg tablet 05-26 00:00: 00 Yes [id number] 600mg Take 1 tablet by mouth every 6 (six) hours as needed (Pain). Take with food or milk. [facility] ferrous sulfate 325 mg (65 mg iron) tablet 05-26 00:00: 00 Yes [id number] 325mg Take 1 tablet by mouth daily. [facility] ferrous sulfate 325 mg (65 mg iron) tablet 05-26 00:00: 00 Yes [id number] 325mg Take 1 tablet by mouth daily. [facility] ferrous sulfate 325 mg (65 mg iron) tablet 05-26 00:00: 00 Yes [id number] 325mg Take 1 tablet by mouth daily. [facility] ferrous sulfate 325 mg (65 mg iron) tablet 05-26 00:00: 00 Yes [id number] 325mg Take 1 tablet by mouth daily. [facility] ferrous sulfate 325 mg (65 mg iron) tablet 05-26 00:00: 00 Yes [id number] 325mg Take 1 tablet by mouth daily. [facility] ferrous sulfate 325 mg (65 mg iron) tablet 05-26 00:00: 00 Yes [id number] 325mg Take 1 tablet by mouth daily. [facility] ferrous sulfate 325 mg (65 mg iron) tablet 05-26 00:00: 00 Yes [id number] 325mg Take 1 tablet by mouth daily. [facility] ferrous sulfate 325 mg (65 mg iron) tablet 05-26 00:00: 00 Yes [id number] 325mg Take 1 tablet by mouth daily. [facility] ferrous sulfate 325 mg (65 mg iron) tablet 05-26 00:00: 00 Yes [id number] 325mg Take 1 tablet by mouth daily. [facility] ferrous sulfate 325 mg (65 mg iron) tablet 05-26 00:00: 00 Yes [id number] 325mg Take 1 tablet by mouth daily. [facility] ferrous sulfate 325 mg (65 mg iron) tablet 05-26 00:00: 00 Yes [id number] 325mg Take 1 tablet by mouth daily. [facility] ferrous sulfate 325 mg (65 mg iron) tablet 05-26 00:00: 00 Yes [id number] 325mg Take 1 tablet by mouth daily. [facility] ferrous sulfate 325 mg (65 mg iron) tablet 05-26 00:00: 00 Yes [id number] 325mg Take 1 tablet by mouth daily. [facility] ferrous sulfate 325 mg (65 mg iron) tablet 05-26 00:00: 00 Yes [id number] 325mg Take 1 tablet by mouth daily. [facility] ferrous sulfate 325 mg (65 mg iron) tablet 05-26 00:00: 00 Yes [id number] 325mg Take 1 tablet by mouth daily. [facility] ferrous sulfate 325 mg (65 mg iron) tablet 05-26 00:00: 00 Yes [id number] 325mg Take 1 tablet by mouth daily. [facility] ferrous sulfate 325 mg (65 mg iron) tablet 05-26 00:00: 00 Yes [id number] 325mg Take 1 tablet by mouth daily. [facility] ferrous sulfate 325 mg (65 mg iron) tablet 05-26 00:00: 00 Yes [id number] 325mg Take 1 tablet by mouth daily. [facility] ferrous sulfate 325 mg (65 mg iron) tablet 05-26 00:00: 00 Yes [id number] 325mg Take 1 tablet by mouth daily. [facility] ferrous sulfate 325 mg (65 mg iron) tablet 05-26 00:00: 00 Yes [id number] 325mg Take 1 tablet by mouth daily. [facility] ferrous sulfate 325 mg (65 mg iron) tablet 05-26 00:00: 00 Yes [id number] 325mg Take 1 tablet by mouth daily. [facility] ibuprofen 600 mg tablet 05-26 00:00: 00 07-07 00:00 :00 No [id number] 600mg Take 1 tablet by mouth every 6 (six) hours as needed (Pain). Take with food or milk. [facility] ibuprofen 600 mg tablet 05-26 00:00: 00 07-07 00:00 :00 No [id number] 600mg Take 1 tablet by mouth every 6 (six) hours as needed (Pain). Take with food or milk. [facility] ibuprofen 600 mg tablet 05-26 00:00: 00 07-07 00:00 :00 No [id number] 600mg Take 1 tablet by mouth every 6 (six) hours as needed (Pain). Take with food or milk. [facility] SERTraline (ZOLOFT) 25 mg tablet 5-13 00:00: 00 Yes [id number] 25mg Take 1 tablet by mouth daily. [facility] lurasidone (LATUDA) 20 mg tablet 2020-0 5-13 00:00: 00 Yes [id number] 20mg Take 1 tablet by mouth daily. Take with food. [facility] SERTraline (ZOLOFT) 25 mg tablet 2020-0 5-13 00:00: 00 Yes [id number] 25mg Take 1 tablet by mouth daily. [facility] lurasidone (LATUDA) 20 mg tablet 2020-0 5-13 00:00: 00 Yes [id number] 20mg Take 1 tablet by mouth daily. Take with food. [facility] SERTraline (ZOLOFT) 25 mg tablet 2020-0 5-13 00:00: 00 07-07 00:00 :00 No [id number] 25mg Take 1 tablet by mouth daily. [facility] lurasidone (LATUDA) 20 mg tablet 2020-0 5-13 00:00: 00 07-07 00:00 :00 No [id number] 20mg Take 1 tablet by mouth daily. Take with food. [facility] SERTraline (ZOLOFT) 25 mg tablet 2020-0 5-13 00:00: 00 07-07 00:00 :00 No [id number] 25mg Take 1 tablet by mouth daily. [facility] lurasidone (LATUDA) 20 mg tablet 2020-0 5-13 00:00: 00 07-07 00:00 :00 No [id number] 20mg Take 1 tablet by mouth daily. Take with food. [facility] SERTraline (ZOLOFT) 25 mg tablet 2020-0 5-13 00:00: 00 07-07 00:00 :00 No [id number] 25mg Take 1 tablet by mouth daily. [facility] lurasidone (LATUDA) 20 mg tablet 2020-0 5-13 00:00: 00 07-07 00:00 :00 No [id number] 20mg Take 1 tablet by mouth daily. Take with food. [facility] PNV 102-iron-fo late 1-dss-dha (VITAFOL FE+, WITH DOCUSATE,) 90 mg iron-1 mg -50 mg-200 mg Cap 2020-0 3-19 00:00: 00 Yes [id number] Take 1 TAB-CAP/M2 by mouth daily. [facility] 102-iron-fo late 1-dss-dha (VITAFOL FE+, WITH DOCUSATE,) 90 mg iron-1 mg -50 mg-200 mg Cap 2020-0 3-19 00:00: 00 Yes [id number] Take 1 TAB-CAP/M2 by mouth daily. [facility] 102-iron-fo late 1-dss-dha (VITAFOL FE+, WITH DOCUSATE,) 90 mg iron-1 mg -50 mg-200 mg Cap 2020-0 3-19 00:00: 00 Yes [id number] Take 1 TAB-CAP/M2 by mouth daily. [facility] 102-iron-fo late 1-dss-dha (VITAFOL FE+, WITH DOCUSATE,) 90 mg iron-1 mg -50 mg-200 mg Cap 2020-0 3-19 00:00: 00 Yes [id number] Take 1 TAB-CAP/M2 by mouth daily. [facility] 102-iron-fo late 1-dss-dha (VITAFOL FE+, WITH DOCUSATE,) 90 mg iron-1 mg -50 mg-200 mg Cap 2020-0 3-19 00:00: 00 Yes [id number] Take 1 TAB-CAP/M2 by mouth daily. [facility] 102-iron-fo late 1-dss-dha (VITAFOL FE+, WITH DOCUSATE,) 90 mg iron-1 mg -50 mg-200 mg Cap 2020-0 3-19 00:00: 00 Yes [id number] Take 1 TAB-CAP/M2 by mouth daily. [facility] 102-iron-fo late 1-dss-dha (VITAFOL FE+, WITH DOCUSATE,) 90 mg iron-1 mg -50 mg-200 mg Cap 2020-0 3-19 00:00: 00 Yes [id number] Take 1 TAB-CAP/M2 by mouth daily. [facility] 102-iron-fo late 1-dss-dha (VITAFOL FE+, WITH DOCUSATE,) 90 mg iron-1 mg -50 mg-200 mg Cap 2020-0 3-19 00:00: 00 Yes [id number] Take 1 TAB-CAP/M2 by mouth daily. [facility] PN 102-iron-fo late 1-dss-dha (VITAFOL FE+, WITH DOCUSATE,) 90 mg iron-1 mg -50 mg-200 mg Cap 2020-0 3-19 00:00: 00 Yes [id number] Take 1 TAB-CAP/M2 by mouth daily. [facility] PN 102-iron-fo late 1-dss-dha (VITAFOL FE+, WITH DOCUSATE,) 90 mg iron-1 mg -50 mg-200 mg Cap 2020-0 3-19 00:00: 00 Yes [id number] Take 1 TAB-CAP/M2 by mouth daily. [facility] 102-iron-fo late 1-dss-dha (VITAFOL FE+, WITH DOCUSATE,) 90 mg iron-1 mg -50 mg-200 mg Cap 2020-0 3-19 00:00: 00 Yes [id number] Take 1 TAB-CAP/M2 by mouth daily. [facility] PN 102-iron-fo late 1-dss-dha (VITAFOL FE+, WITH DOCUSATE,) 90 mg iron-1 mg -50 mg-200 mg Cap 2020-0 3-19 00:00: 00 Yes [id number] Take 1 TAB-CAP/M2 by mouth daily. [facility] 102-iron-fo late 1-dss-dha (VITAFOL FE+, WITH DOCUSATE,) 90 mg iron-1 mg -50 mg-200 mg Cap 2020-0 3-19 00:00: 00 Yes [id number] Take 1 TAB-CAP/M2 by mouth daily. [facility] 102-iron-fo late 1-dss-dha (VITAFOL FE+, WITH DOCUSATE,) 90 mg iron-1 mg -50 mg-200 mg Cap 2020-0 3-19 00:00: 00 Yes [id number] Take 1 TAB-CAP/M2 by mouth daily. [facility] PN 102-iron-fo late 1-dss-dha (VITAFOL FE+, WITH DOCUSATE,) 90 mg iron-1 mg -50 mg-200 mg Cap 2020-0 3-19 00:00: 00 Yes [id number] Take 1 TAB-CAP/M2 by mouth daily. [facility] PN 102-iron-fo late 1-dss-dha (VITAFOL FE+, WITH DOCUSATE,) 90 mg iron-1 mg -50 mg-200 mg Cap 2020-0 3-19 00:00: 00 Yes [id number] Take 1 TAB-CAP/M2 by mouth daily. [facility] 102-iron-fo late 1-dss-dha (VITAFOL FE+, WITH DOCUSATE,) 90 mg iron-1 mg -50 mg-200 mg Cap 2020-0 3-19 00:00: 00 Yes [id number] Take 1 TAB-CAP/M2 by mouth daily. [facility] 102-iron-fo late 1-dss-dha (VITAFOL FE+, WITH DOCUSATE,) 90 mg iron-1 mg -50 mg-200 mg Cap 2020-0 3-19 00:00: 00 Yes [id number] Take 1 TAB-CAP/M2 by mouth daily. [facility] PN 102-iron-fo late 1-dss-dha (VITAFOL FE+, WITH DOCUSATE,) 90 mg iron-1 mg -50 mg-200 mg Cap 2020-0 3-19 00:00: 00 Yes [id number] Take 1 TAB-CAP/M2 by mouth daily. [facility] PN 102-iron-fo late 1-dss-dha (VITAFOL FE+, WITH DOCUSATE,) 90 mg iron-1 mg -50 mg-200 mg Cap 2020-0 3-19 00:00: 00 Yes [id number] Take 1 TAB-CAP/M2 by mouth daily. [facility] 102-iron-fo late 1-dss-dha (VITAFOL FE+, WITH DOCUSATE,) 90 mg iron-1 mg -50 mg-200 mg Cap 2020-0 3-19 00:00: 00 Yes [id number] Take 1 TAB-CAP/M2 by mouth daily. [facility] PN 102-iron-fo late 1-dss-dha (VITAFOL FE+, WITH DOCUSATE,) 90 mg iron-1 mg -50 mg-200 mg Cap 2020-0 3-19 00:00: 00 Yes [id number] Take 1 TAB-CAP/M2 by mouth daily. [facility] 102-iron-fo late 1-dss-dha (VITAFOL FE+, WITH DOCUSATE,) 90 mg iron-1 mg -50 mg-200 mg Cap 2020-0 3-19 00:00: 00 Yes [id number] Take 1 TAB-CAP/M2 by mouth daily. [facility] 102-iron-fo late 1-dss-dha (VITAFOL FE+, WITH DOCUSATE,) 90 mg iron-1 mg -50 mg-200 mg Cap 2020-0 3-19 00:00: 00 Yes [id number] Take 1 TAB-CAP/M2 by mouth daily. [facility] 102-iron-fo late 1-dss-dha (VITAFOL FE+, WITH DOCUSATE,) 90 mg iron-1 mg -50 mg-200 mg Cap 2020-0 3-19 00:00: 00 Yes [id number] Take 1 TAB-CAP/M2 by mouth daily. [facility] 102-iron-fo late 1-dss-dha (VITAFOL FE+, WITH DOCUSATE,) 90 mg iron-1 mg -50 mg-200 mg Cap 2020-0 3-19 00:00: 00 Yes [id number] Take 1 TAB-CAP/M2 by mouth daily. [facility] 102-iron-fo late 1-dss-dha (VITAFOL FE+, WITH DOCUSATE,) 90 mg iron-1 mg -50 mg-200 mg Cap 2020-0 3-19 00:00: 00 Yes [id number] Take 1 TAB-CAP/M2 by mouth daily. [facility] 102-iron-fo late 1-dss-dha (VITAFOL FE+, WITH DOCUSATE,) 90 mg iron-1 mg -50 mg-200 mg Cap 2020-0 3-19 00:00: 00 Yes [id number] Take 1 TAB-CAP/M2 by mouth daily. [facility] PN 102-iron-fo late 1-dss-dha (VITAFOL FE+, WITH DOCUSATE,) 90 mg iron-1 mg -50 mg-200 mg Cap 02-15 00:00: 00 12-11 00:00 :00 No [id number] Take 1 TAB-CAP/M2 by mouth daily. [facility] PNV 102-iron-fo late 1-dss-dha (VITAFOL FE+, WITH DOCUSATE,) 90 mg iron-1 mg -50 mg-200 mg Cap 02-15 00:00: 00 12-11 00:00 :00 No [id number] Take 1 TAB-CAP/M2 by mouth daily. [facility] budesonide- formoterol (SYMBICORT) 160-4.5 mcg/actuati on inhaler 12-15 00:00: 00 Yes [id number] 2{puff} Inhale 2 Puffs daily. [facility] budesonide- formoterol (SYMBICORT) 160-4.5 mcg/actuati on inhaler 12-15 00:00: 00 Yes [id number] 2{puff} Inhale 2 Puffs daily. [facility] budesonide- formoterol (SYMBICORT) 160-4.5 mcg/actuati on inhaler 12-15 00:00: 00 Yes [id number] 2{puff} Inhale 2 Puffs daily. [facility] budesonide- formoterol (SYMBICORT) 160-4.5 mcg/actuati on inhaler 12-15 00:00: 00 Yes [id number] 2{puff} Inhale 2 Puffs daily. [facility] budesonide- formoterol (SYMBICORT) 160-4.5 mcg/actuati on inhaler 12-15 00:00: 00 Yes [id number] 2{puff} Inhale 2 Puffs daily. [facility] budesonide- formoterol (SYMBICORT) 160-4.5 mcg/actuati on inhaler 12-15 00:00: 00 Yes [id number] 2{puff} Inhale 2 Puffs daily. [facility] budesonide- formoterol (SYMBICORT) 160-4.5 mcg/actuati on inhaler 16 00:00: 00 Yes [id number] 2{puff} Inhale 2 Puffs daily. [facility] budesonide- formoterol (SYMBICORT) 160-4.5 mcg/actuati on inhaler 12-15 00:00: 00 Yes [id number] 2{puff} Inhale 2 Puffs daily. [facility] budesonide- formoterol (SYMBICORT) 160-4.5 mcg/actuati on inhaler 12-15 00:00: 00 Yes [id number] 2{puff} Inhale 2 Puffs daily. [facility] budesonide- formoterol (SYMBICORT) 160-4.5 mcg/actuati on inhaler 12-15 00:00: 00 Yes [id number] 2{puff} Inhale 2 Puffs daily. [facility] budesonide- formoterol (SYMBICORT) 160-4.5 mcg/actuati on inhaler 12-15 00:00: 00 Yes [id number] 2{puff} Inhale 2 Puffs daily. [facility] budesonide- formoterol (SYMBICORT) 160-4.5 mcg/actuati on inhaler 12-15 00:00: 00 Yes [id number] 2{puff} Inhale 2 Puffs daily. [facility] budesonide- formoterol (SYMBICORT) 160-4.5 mcg/actuati on inhaler 16 00:00: 00 Yes [id number] 2{puff} Inhale 2 Puffs daily. [facility] budesonide- formoterol (SYMBICORT) 160-4.5 mcg/actuati on inhaler 16 00:00: 00 Yes [id number] 2{puff} Inhale 2 Puffs daily. [facility] budesonide- formoterol (SYMBICORT) 160-4.5 mcg/actuati on inhaler 12-15 00:00: 00 Yes [id number] 2{puff} Inhale 2 Puffs daily. [facility] budesonide- formoterol (SYMBICORT) 160-4.5 mcg/actuati on inhaler 12-15 00:00: 00 Yes [id number] 2{puff} Inhale 2 Puffs daily. [facility] budesonide- formoterol (SYMBICORT) 160-4.5 mcg/actuati on inhaler 12-15 00:00: 00 Yes [id number] 2{puff} Inhale 2 Puffs daily. [facility] budesonide- formoterol (SYMBICORT) 160-4.5 mcg/actuati on inhaler 12-15 00:00: 00 Yes [id number] 2{puff} Inhale 2 Puffs daily. [facility] budesonide- formoterol (SYMBICORT) 160-4.5 mcg/actuati on inhaler 12-15 00:00: 00 Yes [id number] 2{puff} Inhale 2 Puffs daily. [facility] budesonide- formoterol (SYMBICORT) 160-4.5 mcg/actuati on inhaler 12-15 00:00: 00 Yes [id number] 2{puff} Inhale 2 Puffs daily. [facility] budesonide- formoterol (SYMBICORT) 160-4.5 mcg/actuati on inhaler 12-15 00:00: 00 Yes [id number] 2{puff} Inhale 2 Puffs daily. [facility] budesonide- formoterol (SYMBICORT) 160-4.5 mcg/actuati on inhaler 12-15 00:00: 00 Yes [id number] 2{puff} Inhale 2 Puffs daily. [facility] budesonide- formoterol (SYMBICORT) 160-4.5 mcg/actuati on inhaler 12-15 00:00: 00 Yes [id number] 2{puff} Inhale 2 Puffs daily. [facility] budesonide- formoterol (SYMBICORT) 160-4.5 mcg/actuati on inhaler 16 00:00: 00 Yes [id number] 2{puff} Inhale 2 Puffs daily. [facility] budesonide- formoterol (SYMBICORT) 160-4.5 mcg/actuati on inhaler 12-15 00:00: 00 Yes [id number] 2{puff} Inhale 2 Puffs daily. [facility] budesonide- formoterol (SYMBICORT) 160-4.5 mcg/actuati on inhaler 12-15 00:00: 00 Yes [id number] 2{puff} Inhale 2 Puffs daily. [facility] budesonide- formoterol (SYMBICORT) 160-4.5 mcg/actuati on inhaler 12-15 00:00: 00 Yes [id number] 2{puff} Inhale 2 Puffs daily. [facility] budesonide- formoterol (SYMBICORT) 160-4.5 mcg/actuati on inhaler 12-15 00:00: 00 Yes [id number] 2{puff} Inhale 2 Puffs daily. [facility] budesonide- formoterol (SYMBICORT) 160-4.5 mcg/actuati on inhaler 12-15 00:00: 00 Yes [id number] 2{puff} Inhale 2 Puffs daily. [facility] budesonide- formoterol (SYMBICORT) 160-4.5 mcg/actuati on inhaler 16 00:00: 00 Yes [id number] 2{puff} Inhale 2 Puffs daily. [facility] budesonide- formoterol (SYMBICORT) 160-4.5 mcg/actuati on inhaler 12-15 00:00: 00 Yes [id number] 2{puff} Inhale 2 Puffs daily. [facility] budesonide- formoterol (SYMBICORT) 160-4.5 mcg/actuati on inhaler 12-15 00:00: 00 Yes [id number] 2{puff} Inhale 2 Puffs daily. [facility] budesonide- formoterol (SYMBICORT) 160-4.5 mcg/actuati on inhaler 12-15 00:00: 00 Yes [id number] 2{puff} Inhale 2 Puffs daily. [facility] budesonide- formoterol (SYMBICORT) 160-4.5 mcg/actuati on inhaler 12-15 00:00: 00 Yes [id number] 2{puff} Inhale 2 Puffs daily. [facility] Peak Flow Meter 2017-11 00:00: 00 Yes Use as directed [facility] Peak Flow Meter 2017-11 00:00: 00 Yes Use as directed [facility] Peak Flow Meter 2017-11 00:00: 00 Yes Use as directed [facility] Peak Flow Meter 2017-11 00:00: 00 Yes Use as directed [facility] Peak Flow Meter 2017-11 00:00: 00 Yes Use as directed [facility] Peak Flow Meter 2017-11 00:00: 00 Yes Use as directed [facility] Peak Flow Meter 2017-11 00:00: 00 Yes Use as directed [facility] Peak Flow Meter 2017-11 00:00: 00 Yes Use as directed [facility] Peak Flow Meter 2017-11 00:00: 00 Yes Use as directed [facility] Peak Flow Meter 2017-11 00:00: 00 Yes Use as directed [facility] Peak Flow Meter 2017-11 00:00: 00 Yes Use as directed [facility] Peak Flow Meter 2017-11 00:00: 00 Yes Use as directed [facility] Peak Flow Meter 2017-11 00:00: 00 Yes Use as directed [facility] Peak Flow Meter Lynnette 2017-11 00:00: 00 Yes Use as directed [facility] Peak Flow Meter Lynnette 2017-11 00:00: 00 Yes Use as directed [facility] Peak Flow Meter Lynnette 2017-11 00:00: 00 Yes Use as directed [facility] Peak Flow Meter Lynnette 2017-11 00:00: 00 Yes Use as directed [facility] Peak Flow Meter Lynnette 2017-11 00:00: 00 Yes Use as directed [facility] Peak Flow Meter Lynnette 2017-11 00:00: 00 Yes Use as directed [facility] Peak Flow Meter Lynnette 2017-11 00:00: 00 Yes Use as directed [facility] Peak Flow Meter Lynnette 2017-11 00:00: 00 Yes Use as directed [facility] Peak Flow Meter Lynnette 2017-11 00:00: 00 Yes Use as directed [facility] Peak Flow Meter Lynnette 2017-11 00:00: 00 Yes Use as directed [facility] Peak Flow Meter Lynnette 2017-11 00:00: 00 Yes Use as directed [facility] Peak Flow Meter Lynnette 2017-11 00:00: 00 Yes Use as directed [facility] Peak Flow Meter Lynentte 2017-11 00:00: 00 Yes Use as directed [facility] Peak Flow Meter 2017-11 00:00: 00 Yes Use as directed [facility] Peak Flow Meter 2017-11 00:00: 00 Yes Use as directed [facility] Peak Flow Meter 2017-11 00:00: 00 12-11 00:00 :00 No Use as directed [facility] Peak Flow Meter 2017-11 00:00: 00 12-11 00:00 :00 No Use as directed [facility] Immunizations Ordered Immunization Name Filled Immunization Name Date Status Comments Source Pneumococcal 20 Conjugate, PCV20 (Prevnar 20) 2023-08-04 00:00:00 Completed [facility] Pneumococcal 20 Conjugate, PCV20 (Prevnar 20) 2023-08-04 00:00:00 Completed [facility] Pneumococcal 20 Conjugate, PCV20 (Prevnar 20) 2023-08-04 00:00:00 Completed [facility] Pneumococcal 20 Conjugate, PCV20 (Prevnar 20) 2023-08-04 00:00:00 Completed [facility] Pneumococcal 20 Conjugate, PCV20 (Prevnar 20) 2023-08-04 00:00:00 Completed [facility] Pneumococcal 20 Conjugate, PCV20 (Prevnar 20) 2023-08-04 00:00:00 Completed [facility] Rho (d) Immune Globulin 2020-05-26 00:00:00 Completed [facility] Rho (d) Immune Globulin 2020-05-26 00:00:00 Completed [facility] Rho (d) Immune Globulin 2020-05-26 00:00:00 Completed [facility] Rho (d) Immune Globulin 2020-05-26 00:00:00 Completed [facility] Rho (d) Immune Globulin 2020-05-26 00:00:00 Completed [facility] Rho (d) Immune Globulin 2020-05-26 00:00:00 Completed [facility] Rho (d) Immune Globulin 2020-05-26 00:00:00 Completed [facility] Rho (d) Immune Globulin 2020-05-26 00:00:00 Completed [facility] Rho (d) Immune Globulin 2020-05-26 00:00:00 Completed [facility] Rho (d) Immune Globulin 2020-05-26 00:00:00 Completed [facility] Rho (d) Immune Globulin 2020-05-26 00:00:00 Completed [facility] Rho (d) Immune Globulin 2020-05-26 00:00:00 Completed [facility] TDAP (ADACEL) VACCINE 2020-03-12 00:00:00 Completed [facility] Rho (d) Immune Globulin 2020-03-12 00:00:00 Completed [facility] TDAP (ADACEL) VACCINE 2020-03-12 00:00:00 Completed [facility] Rho (d) Immune Globulin 2020-03-12 00:00:00 Completed [facility] TDAP (ADACEL) VACCINE 2020-03-12 00:00:00 Completed [facility] Rho (d) Immune Globulin 2020-03-12 00:00:00 Completed [facility] TDAP (ADACEL) VACCINE 2020-03-12 00:00:00 Completed [facility] Rho (d) Immune Globulin 2020-03-12 00:00:00 Completed [facility] TDAP (ADACEL) VACCINE 2020-03-12 00:00:00 Completed [facility] Rho (d) Immune Globulin 2020-03-12 00:00:00 Completed [facility] TDAP (ADACEL) VACCINE 2020-03-12 00:00:00 Completed [facility] Rho (d) Immune Globulin 2020-03-12 00:00:00 Completed [facility] TDAP (ADACEL) VACCINE 2020-03-12 00:00:00 Completed [facility] Rho (d) Immune Globulin 2020-03-12 00:00:00 Completed [facility] TDAP (ADACEL) VACCINE 2020-03-12 00:00:00 Completed [facility] Rho (d) Immune Globulin 2020-03-12 00:00:00 Completed [facility] TDAP (ADACEL) VACCINE 2020-03-12 00:00:00 Completed [facility] Rho (d) Immune Globulin 2020-03-12 00:00:00 Completed [facility] TDAP (ADACEL) VACCINE 2020-03-12 00:00:00 Completed [facility] Rho (d) Immune Globulin 2020-03-12 00:00:00 Completed [facility] TDAP (ADACEL) VACCINE 2020-03-12 00:00:00 Completed [facility] Rho (d) Immune Globulin 2020-03-12 00:00:00 Completed [facility] TDAP (ADACEL) VACCINE 2020-03-12 00:00:00 Completed [facility] Rho (d) Immune Globulin 2020-03-12 00:00:00 Completed [facility] Influenza Virus Vaccine Quad .5 mL IM 6+ MO 2020-02-16 00:00:00 Completed [facility] Influenza Virus Vaccine Quad .5 mL IM 6+ MO 2020-02-16 00:00:00 Completed [facility] Influenza Virus Vaccine Quad .5 mL IM 6+ MO 2020-02-16 00:00:00 Completed [facility] Influenza Virus Vaccine Quad .5 mL IM 6+ MO 2020-02-16 00:00:00 Completed [facility] Influenza Virus Vaccine Quad .5 mL IM 6+ MO 2020-02-16 00:00:00 Completed [facility] Influenza Virus Vaccine Quad .5 mL IM 6+ MO 2020-02-16 00:00:00 Completed [facility] Influenza Virus Vaccine Quad .5 mL IM 6+ MO (FLUZONE/FLULAVAL/F LUARIX) 2020-02-16 00:00:00 Completed [facility] Influenza Virus Vaccine Quad .5 mL IM 6+ MO (FLUZONE/FLULAVAL/F LUARIX) 2020-02-16 00:00:00 Completed [facility] Influenza Virus Vaccine Quad .5 mL IM 6+ MO (FLUZONE/FLULAVAL/F LUARIX) 2020-02-16 00:00:00 Completed [facility] Influenza Virus Vaccine Quad .5 mL IM 6+ MO (FLUZONE/FLULAVAL/F LUARIX) 2020-02-16 00:00:00 Completed [facility] Influenza Virus Vaccine Quad .5 mL IM 6+ MO (FLUZONE/FLULAVAL/F LUARIX) 2020-02-16 00:00:00 Completed [facility] Influenza Virus Vaccine Quad .5 mL IM 6+ MO (FLUZONE/FLULAVAL/F LUARIX) 2020-02-16 00:00:00 Completed [facility] Rho (d) Immune Globulin 2019-04-23 00:00:00 Completed [facility] Rho (d) Immune Globulin 2019-04-23 00:00:00 Completed [facility] Rho (d) Immune Globulin 2019-04-23 00:00:00 Completed [facility] Rho (d) Immune Globulin 2019-04-23 00:00:00 Completed [facility] Rho (d) Immune Globulin 2019-04-23 00:00:00 Completed [facility] Rho (d) Immune Globulin 2019-04-23 00:00:00 Completed [facility] Rho (d) Immune Globulin 2019-04-23 00:00:00 Completed [facility] Rho (d) Immune Globulin 2019-04-23 00:00:00 Completed [facility] Rho (d) Immune Globulin 2019-04-23 00:00:00 Completed [facility] Rho (d) Immune Globulin 2019-04-23 00:00:00 Completed [facility] Rho (d) Immune Globulin 2019-04-23 00:00:00 Completed [facility] Rho (d) Immune Globulin 2019-04-23 00:00:00 Completed [facility] Rho (d) Immune Globulin 2019-04-21 00:00:00 Completed [facility] Rho (d) Immune Globulin 2019-04-21 00:00:00 Completed [facility] Rho (d) Immune Globulin 2019-04-21 00:00:00 Completed [facility] Rho (d) Immune Globulin 2019-04-21 00:00:00 Completed [facility] Rho (d) Immune Globulin 2019-04-21 00:00:00 Completed [facility] Rho (d) Immune Globulin 2019-04-21 00:00:00 Completed [facility] Rho (d) Immune Globulin 2019-04-21 00:00:00 Completed [facility] Rho (d) Immune Globulin 2019-04-21 00:00:00 Completed [facility] Rho (d) Immune Globulin 2019-04-21 00:00:00 Completed [facility] Rho (d) Immune Globulin 2019-04-21 00:00:00 Completed [facility] Rho (d) Immune Globulin 2019-04-21 00:00:00 Completed [facility] Rho (d) Immune Globulin 2019-04-21 00:00:00 Completed [facility] Influenza Virus Vaccine Quad .5 mL IM 6+ MO 2018-10-07 00:00:00 Completed [facility] Influenza Virus Vaccine Quad .5 mL IM 6+ MO 2018-10-07 00:00:00 Completed [facility] Influenza Virus Vaccine Quad .5 mL IM 6+ MO 2018-10-07 00:00:00 Completed [facility] Influenza Virus Vaccine Quad .5 mL IM 6+ MO 2018-10-07 00:00:00 Completed [facility] Influenza Virus Vaccine Quad .5 mL IM 6+ MO 2018-10-07 00:00:00 Completed [facility] Influenza Virus Vaccine Quad .5 mL IM 6+ MO 2018-10-07 00:00:00 Completed [facility] Influenza Virus Vaccine Quad .5 mL IM 6+ MO (FLUZONE/FLULAVAL/F LUARIX) 2018-10-07 00:00:00 Completed [facility] Influenza Virus Vaccine Quad .5 mL IM 6+ MO (FLUZONE/FLULAVAL/F LUARIX) 2018-10-07 00:00:00 Completed [facility] Influenza Virus Vaccine Quad .5 mL IM 6+ MO (FLUZONE/FLULAVAL/F LUARIX) 2018-10-07 00:00:00 [facility] [facility] Influenza Virus Vaccine Quad .5 mL IM 6+ MO (FLUZONE/FLULAVAL/F LUARIX) 2018-10-07 00:00:00 Completed [facility] Influenza Virus Vaccine Quad .5 mL IM 6+ MO (FLUZONE/FLULAVAL/F LUARIX) 2018-10-07 00:00:00 Completed [facility] Influenza Virus Vaccine Quad .5 mL IM 6+ MO (FLUZONE/FLULAVAL/F LUARIX) 2018-10-07 00:00:00 Completed [facility] TDAP 2016-10-22 00:00:00 Completed [facility] TDAP 2016-10-22 00:00:00 Completed [facility] TDAP 2016-10-22 00:00:00 Completed [facility] TDAP 2016-10-22 00:00:00 Completed [facility] TDAP 2016-10-22 00:00:00 Completed [facility] TDAP 2016-10-22 00:00:00 Completed [facility] TDAP 2016-10-22 00:00:00 Completed [facility] TDAP 2016-10-22 00:00:00 Completed [facility] TDAP 2016-10-22 00:00:00 Completed [facility] TDAP 2016-10-22 00:00:00 Completed [facility] TDAP 2016-10-22 00:00:00 Completed [facility] TDAP 2016-10-22 00:00:00 Completed [facility] Rho (d) Immune Globulin Unknown Completed [facility] Pneumococcal 20 Conjugate, PCV20 (Prevnar 20) Unknown Completed [facility] Influenza Virus Vaccine Quad .5 mL IM 6+ MO (FLUZONE/FLULAVAL/F LUARIX) Unknown Completed [facility] Rho (d) Immune Globulin Unknown Completed [facility] Rho (d) Immune Globulin Unknown Completed [facility] TDAP Unknown Completed [facility] Influenza Virus Vaccine Quad .5 mL IM 6+ MO (FLUZONE/FLULAVAL/F LUARIX) Unknown Completed [facility] TDAP (ADACEL) VACCINE Unknown Completed [facility] Rho (d) Immune Globulin Unknown Completed [facility] Rho (d) Immune Globulin Unknown Completed [facility] Pneumococcal 20 Conjugate, PCV20 (Prevnar 20) Unknown Completed [facility] Influenza Virus Vaccine Quad .5 mL IM 6+ MO (FLUZONE/FLULAVAL/F LUARIX) Unknown Completed [facility] Rho (d) Immune Globulin Unknown Completed [facility] Rho (d) Immune Globulin Unknown Completed [facility] TDAP Unknown Completed [facility] Influenza Virus Vaccine Quad .5 mL IM 6+ MO (FLUZONE/FLULAVAL/F LUARIX) Unknown Completed [facility] TDAP (ADACEL) VACCINE Unknown Completed [facility] Rho (d) Immune Globulin Unknown Completed [facility] Rho (d) Immune Globulin Unknown Completed [facility] Pneumococcal 20 Conjugate, PCV20 (Prevnar 20) Unknown Completed [facility] Influenza Virus Vaccine Quad .5 mL IM 6+ MO (FLUZONE/FLULAVAL/F LUARIX) Unknown Completed [facility] Rho (d) Immune Globulin Unknown Completed [facility] Rho (d) Immune Globulin Unknown Completed [facility] TDAP Unknown Completed [facility] Influenza Virus Vaccine Quad .5 mL IM 6+ MO (FLUZONE/FLULAVAL/F LUARIX) Unknown Completed [facility] TDAP (ADACEL) VACCINE Unknown Completed [facility] Rho (d) Immune Globulin Unknown Completed [facility] Rho (d) Immune Globulin Unknown Completed [facility] Pneumococcal 20 Conjugate, PCV20 (Prevnar 20) Unknown Completed [facility] Influenza Virus Vaccine Quad .5 mL IM 6+ MO (FLUZONE/FLULAVAL/F LUARIX) Unknown Completed [facility] Rho (d) Immune Globulin Unknown Completed [facility] Rho (d) Immune Globulin Unknown Completed [facility] TDAP Unknown Completed [facility] Influenza Virus Vaccine Quad .5 mL IM 6+ MO (FLUZONE/FLULAVAL/F LUARIX) Unknown Completed [facility] TDAP (ADACEL) VACCINE Unknown Completed [facility] Rho (d) Immune Globulin Unknown Completed [facility] Rho (d) Immune Globulin Unknown Completed [facility] Pneumococcal 20 Conjugate, PCV20 (Prevnar 20) Unknown Completed [facility] Influenza Virus Vaccine Quad .5 mL IM 6+ MO (FLUZONE/FLULAVAL/F LUARIX) Unknown Completed [facility] Rho (d) Immune Globulin Unknown Completed [facility] Rho (d) Immune Globulin Unknown Completed [facility] TDAP Unknown Completed [facility] Influenza Virus Vaccine Quad .5 mL IM 6+ MO (FLUZONE/FLULAVAL/F LUARIX) Unknown Completed [facility] TDAP (ADACEL) VACCINE Unknown Completed [facility] Rho (d) Immune Globulin Unknown Completed [facility] Rho (d) Immune Globulin Unknown Completed [facility] Pneumococcal 20 Conjugate, PCV20 (Prevnar 20) Unknown Completed [facility] Influenza Virus Vaccine Quad .5 mL IM 6+ MO (FLUZONE/FLULAVAL/F LUARIX) Unknown Completed [facility] Rho (d) Immune Globulin Unknown Completed [facility] Rho (d) Immune Globulin Unknown Completed [facility] TDAP Unknown Completed [facility] Influenza Virus Vaccine Quad .5 mL IM 6+ MO (FLUZONE/FLULAVAL/F LUARIX) Unknown Completed [facility] TDAP (ADACEL) VACCINE Unknown Completed [facility] Rho (d) Immune Globulin Unknown Completed [facility] Rho (d) Immune Globulin Unknown Completed [facility] Pneumococcal 20 Conjugate, PCV20 (Prevnar 20) Unknown Completed [facility] PPD (TB) Unknown Completed [facility] Influenza Virus Vaccine Quad IM, Preserv and ABX Free 6 MO-64 YRS (FLUCELVAX) Unknown Completed [facility] Influenza Virus Vaccine Quad .5 mL IM 6+ MO (FLUZONE/FLULAVAL/F LUARIX) Unknown Completed [facility] Rho (d) Immune Globulin Unknown Completed [facility] Rho (d) Immune Globulin Unknown Completed [facility] TDAP Unknown Completed [facility] Influenza Virus Vaccine Quad .5 mL IM 6+ MO (FLUZONE/FLULAVAL/F LUARIX) Unknown Completed [facility] TDAP (ADACEL) VACCINE Unknown Completed [facility] Rho (d) Immune Globulin Unknown Completed [facility] Rho (d) Immune Globulin Unknown Completed [facility] Pneumococcal 20 Conjugate, PCV20 (Prevnar 20) Unknown Completed [facility] PPD (TB) Unknown Completed [facility] Influenza Virus Vaccine Quad IM, Preserv and ABX Free 6 MO-64 YRS (FLUCELVAX) Unknown Completed [facility] Influenza Virus Vaccine Quad .5 mL IM 6+ MO (FLUZONE/FLULAVAL/F LUARIX) Unknown Completed [facility] Rho (d) Immune Globulin Unknown Completed [facility] Rho (d) Immune Globulin Unknown Completed [facility] TDAP Unknown Completed [facility] Influenza Virus Vaccine Quad .5 mL IM 6+ MO (FLUZONE/FLULAVAL/F LUARIX) Unknown Completed [facility] TDAP (ADACEL) VACCINE Unknown Completed [facility] Rho (d) Immune Globulin Unknown Completed [facility] Rho (d) Immune Globulin Unknown Completed [facility] Pneumococcal 20 Conjugate, PCV20 (Prevnar 20) Unknown Completed [facility] PPD (TB) Unknown Completed [facility] Influenza Virus Vaccine Quad IM, Preserv and ABX Free 6 MO-64 YRS (FLUCELVAX) Unknown Completed [facility] Influenza Virus Vaccine Quad .5 mL IM 6+ MO (FLUZONE/FLULAVAL/F LUARIX) Unknown Completed [facility] Rho (d) Immune Globulin Unknown Completed [facility] Rho (d) Immune Globulin Unknown Completed [facility] TDAP Unknown Completed [facility] Influenza Virus Vaccine Quad .5 mL IM 6+ MO (FLUZONE/FLULAVAL/F LUARIX) Unknown Completed [facility] TDAP (ADACEL) VACCINE Unknown Completed [facility] Rho (d) Immune Globulin Unknown Completed [facility] Rho (d) Immune Globulin Unknown Completed [facility] Pneumococcal 20 Conjugate, PCV20 (Prevnar 20) Unknown Completed [facility] PPD (TB) Unknown Completed [facility] Influenza Virus Vaccine Quad IM, Preserv and ABX Free 6 MO-64 YRS (FLUCELVAX) Unknown Completed [facility] Influenza Virus Vaccine Quad .5 mL IM 6+ MO (FLUZONE/FLULAVAL/F LUARIX) Unknown Completed [facility] Rho (d) Immune Globulin Unknown Completed [facility] Rho (d) Immune Globulin Unknown Completed [facility] TDAP Unknown Completed [facility] Influenza Virus Vaccine Quad .5 mL IM 6+ MO (FLUZONE/FLULAVAL/F LUARIX) Unknown Completed [facility] TDAP (ADACEL) VACCINE Unknown Completed [facility] Rho (d) Immune Globulin Unknown Completed [facility] Rho (d) Immune Globulin Unknown Completed [facility] Pneumococcal 20 Conjugate, PCV20 (Prevnar 20) Unknown Completed [facility] PPD (TB) Unknown Completed [facility] Influenza Virus Vaccine Quad IM, Preserv and ABX Free 6 MO-64 YRS (FLUCELVAX) Unknown Completed [facility] PPD (TB) Unknown Completed [facility] Influenza Virus Vaccine Quad .5 mL IM 6+ MO (FLUZONE/FLULAVAL/F LUARIX) Unknown Completed [facility] Rho (d) Immune Globulin Unknown Completed [facility] Rho (d) Immune Globulin Unknown Completed [facility] TDAP Unknown Completed [facility] Influenza Virus Vaccine Quad .5 mL IM 6+ MO (FLUZONE/FLULAVAL/F LUARIX) Unknown Completed [facility] TDAP (ADACEL) VACCINE Unknown Completed [facility] Rho (d) Immune Globulin Unknown Completed [facility] Rho (d) Immune Globulin Unknown Completed [facility] Pneumococcal 20 Conjugate, PCV20 (Prevnar 20) Unknown Completed [facility] PPD (TB) Unknown Completed [facility] Influenza Virus Vaccine Quad IM, Preserv and ABX Free 6 MO-64 YRS (FLUCELVAX) Unknown Completed [facility] PPD (TB) Unknown Completed [facility] Influenza Virus Vaccine Quad .5 mL IM 6+ MO (FLUZONE/FLULAVAL/F LUARIX) Unknown Completed [facility] Rho (d) Immune Globulin Unknown Completed [facility] Rho (d) Immune Globulin Unknown Completed [facility] TDAP Unknown Completed [facility] Influenza Virus Vaccine Quad .5 mL IM 6+ MO (FLUZONE/FLULAVAL/F LUARIX) Unknown Completed [facility] TDAP (ADACEL) VACCINE Unknown Completed [facility] Rho (d) Immune Globulin Unknown Completed [facility] Rho (d) Immune Globulin Unknown Completed [facility] Pneumococcal 20 Conjugate, PCV20 (Prevnar 20) Unknown Completed [facility] Influenza Virus Vaccine Quad .5 mL IM 6+ MO (FLUZONE/FLULAVAL/F LUARIX) Unknown Completed [facility] Rho (d) Immune Globulin Unknown Completed [facility] Rho (d) Immune Globulin Unknown Completed [facility] TDAP Unknown Completed [facility] Influenza Virus Vaccine Quad .5 mL IM 6+ MO (FLUZONE/FLULAVAL/F LUARIX) Unknown Completed [facility] TDAP (ADACEL) VACCINE Unknown Completed [facility] Rho (d) Immune Globulin Unknown Completed [facility] Rho (d) Immune Globulin Unknown Completed [facility] Pneumococcal 20 Conjugate, PCV20 (Prevnar 20) Unknown Completed [facility] Influenza Virus Vaccine Quad .5 mL IM 6+ MO (FLUZONE/FLULAVAL/F LUARIX) Unknown Completed [facility] Rho (d) Immune Globulin Unknown Completed [facility] Rho (d) Immune Globulin Unknown Completed [facility] TDAP Unknown Completed [facility] Influenza Virus Vaccine Quad .5 mL IM 6+ MO (FLUZONE/FLULAVAL/F LUARIX) Unknown Completed [facility] TDAP (ADACEL) VACCINE Unknown Completed [facility] Rho (d) Immune Globulin Unknown Completed [facility] Rho (d) Immune Globulin Unknown Completed [facility] Pneumococcal 20 Conjugate, PCV20 (Prevnar 20) Unknown Completed [facility] Influenza Virus Vaccine Quad .5 mL IM 6+ MO (FLUZONE/FLULAVAL/F LUARIX) Unknown Completed [facility] Rho (d) Immune Globulin Unknown Completed [facility] Rho (d) Immune Globulin Unknown Completed [facility] TDAP Unknown Completed [facility] Influenza Virus Vaccine Quad .5 mL IM 6+ MO (FLUZONE/FLULAVAL/F LUARIX) Unknown Completed [facility] TDAP (ADACEL) VACCINE Unknown Completed [facility] Rho (d) Immune Globulin Unknown Completed [facility] Rho (d) Immune Globulin Unknown Completed [facility] Pneumococcal 20 Conjugate, PCV20 (Prevnar 20) Unknown Completed [facility] Influenza Virus Vaccine Quad .5 mL IM 6+ MO (FLUZONE/FLULAVAL/F LUARIX) Unknown Completed [facility] Rho (d) Immune Globulin Unknown Completed [facility] Rho (d) Immune Globulin Unknown Completed [facility] TDAP Unknown Completed [facility] Influenza Virus Vaccine Quad .5 mL IM 6+ MO (FLUZONE/FLULAVAL/F LUARIX) Unknown Completed [facility] TDAP (ADACEL) VACCINE Unknown Completed [facility] Rho (d) Immune Globulin Unknown Completed [facility] Rho (d) Immune Globulin Unknown Completed [facility] Pneumococcal 20 Conjugate, PCV20 (Prevnar 20) Unknown Completed [facility] Influenza Virus Vaccine Quad .5 mL IM 6+ MO (FLUZONE/FLULAVAL/F LUARIX) Unknown Completed [facility] Rho (d) Immune Globulin Unknown Completed [facility] Rho (d) Immune Globulin Unknown Completed [facility] TDAP Unknown Completed [facility] Influenza Virus Vaccine Quad .5 mL IM 6+ MO (FLUZONE/FLULAVAL/F LUARIX) Unknown Completed [facility] TDAP (ADACEL) VACCINE Unknown Completed [facility] Rho (d) Immune Globulin Unknown Completed [facility] Rho (d) Immune Globulin Unknown Completed [facility] Pneumococcal 20 Conjugate, PCV20 (Prevnar 20) Unknown Completed [facility] Influenza Virus Vaccine Quad .5 mL IM 6+ MO (FLUZONE/FLULAVAL/F LUARIX) Unknown Completed [facility] Rho (d) Immune Globulin Unknown Completed [facility] Rho (d) Immune Globulin Unknown Completed [facility] TDAP Unknown Completed [facility] Influenza Virus Vaccine Quad .5 mL IM 6+ MO (FLUZONE/FLULAVAL/F LUARIX) Unknown Completed [facility] TDAP (ADACEL) VACCINE Unknown Completed [facility] Rho (d) Immune Globulin Unknown Completed [facility] Rho (d) Immune Globulin Unknown Completed [facility] Pneumococcal 20 Conjugate, PCV20 (Prevnar 20) Unknown Completed [facility] Influenza Virus Vaccine Quad .5 mL IM 6+ MO (FLUZONE/FLULAVAL/F LUARIX) Unknown Completed [facility] Rho (d) Immune Globulin Unknown Completed [facility] Rho (d) Immune Globulin Unknown Completed [facility] TDAP Unknown Completed [facility] Influenza Virus Vaccine Quad .5 mL IM 6+ MO (FLUZONE/FLULAVAL/F LUARIX) Unknown Completed [facility] TDAP (ADACEL) VACCINE Unknown Completed [facility] Rho (d) Immune Globulin Unknown Completed [facility] Rho (d) Immune Globulin Unknown Completed [facility] Pneumococcal 20 Conjugate, PCV20 (Prevnar 20) Unknown Completed [facility] Influenza Virus Vaccine Quad .5 mL IM 6+ MO (FLUZONE/FLULAVAL/F LUARIX) Unknown Completed [facility] Rho (d) Immune Globulin Unknown Completed [facility] Rho (d) Immune Globulin Unknown Completed [facility] TDAP Unknown Completed [facility] Influenza Virus Vaccine Quad .5 mL IM 6+ MO (FLUZONE/FLULAVAL/F LUARIX) Unknown Completed [facility] TDAP (ADACEL) VACCINE Unknown Completed [facility] Rho (d) Immune Globulin Unknown Completed [facility] Rho (d) Immune Globulin Unknown Completed [facility] Pneumococcal 20 Conjugate, PCV20 (Prevnar 20) Unknown Completed [facility] Influenza Virus Vaccine Quad .5 mL IM 6+ MO (FLUZONE/FLULAVAL/F LUARIX) Unknown Completed [facility] Rho (d) Immune Globulin Unknown Completed [facility] Rho (d) Immune Globulin Unknown Completed [facility] TDAP Unknown Completed [facility] Influenza Virus Vaccine Quad .5 mL IM 6+ MO (FLUZONE/FLULAVAL/F LUARIX) Unknown Completed [facility] TDAP (ADACEL) VACCINE Unknown Completed [facility] Rho (d) Immune Globulin Unknown Completed [facility] Rho (d) Immune Globulin Unknown Completed [facility] Pneumococcal 20 Conjugate, PCV20 (Prevnar 20) Unknown Completed [facility] Influenza Virus Vaccine Quad .5 mL IM 6+ MO (FLUZONE/FLULAVAL/F LUARIX) Unknown Completed [facility] Rho (d) Immune Globulin Unknown Completed [facility] Rho (d) Immune Globulin Unknown Completed [facility] TDAP Unknown Completed [facility] Influenza Virus Vaccine Quad .5 mL IM 6+ MO (FLUZONE/FLULAVAL/F LUARIX) Unknown Completed [facility] TDAP (ADACEL) VACCINE Unknown Completed [facility] Rho (d) Immune Globulin Unknown Completed [facility] Vital Signs Vital Name Observation Time Observation Value Comments S ource Systolic blood pressure 2023-12-15 16:55:00 117 mm[Hg] [facility] Diastolic blood pressure 2023-12-15 16:55:00 81 mm[Hg] [facility] Heart rate 2023-12-15 16:54:00 62 /min [facility] Body temperature 2023-12-15 16:54:00 36.11 Stephanie [facility] Respiratory rate 2023-12-15 16:54:00 17 /min [facility] Body height 2023-12-15 16:54:00 157.5 cm [facility] Body weight 2023-12-15 16:54:00 128.867 kg [facility] BMI 2023-12-15 16:54:00 51.96 kg/m2 [facility] Oxygen saturation in Arterial blood by Pulse oximetry 2023-12-15 16:54:00 100 /min [facility] Systolic blood pressure 2023-12-11 14:57:00 105 mm[Hg] [facility] Diastolic blood pressure 2023-12-11 14:57:00 63 mm[Hg] [facility] Heart rate 2023-12-11 14:57:00 70 /min [facility] Body height 2023-12-11 14:57:00 152.4 cm [facility] Body weight 2023-12-11 14:57:00 129.139 kg [facility] BMI 2023-12-11 14:57:00 55.60 kg/m2 [facility] Systolic blood pressure 2023-11-17 21:59:00 132 mm[Hg] [facility] Diastolic blood pressure 2023-11-17 21:59:00 77 mm[Hg] [facility] Heart rate 2023-11-17 21:59:00 74 /min [facility] Body temperature 2023-11-17 21:59:00 36.72 Stephanie [facility] Respiratory rate 2023-11-17 21:59:00 20 /min [facility] Oxygen saturation in Arterial blood by Pulse oximetry 2023-11-17 21:59:00 96 /min [facility] Body height 2023-11-16 16:57:00 152.4 cm [facility] Body weight 2023-11-16 16:57:00 130.182 kg [facility] BMI 2023-11-16 16:57:00 56.05 kg/m2 [facility] Systolic blood pressure 2023-09-24 14:57:00 124 mm[Hg] [facility] Diastolic blood pressure 2023-09-24 14:57:00 85 mm[Hg] [facility] Heart rate 2023-09-24 14:57:00 82 /min [facility] Body temperature 2023-09-24 14:57:00 36.44 Stephanie [facility] Respiratory rate 2023-09-24 14:57:00 16 /min [facility] Body height 2023-09-24 14:57:00 154.9 cm [facility] Body weight 2023-09-24 14:57:00 127.37 kg [facility] BMI 2023-09-24 14:57:00 53.06 [facility] in Arterial blood by Pulse oximetry 2023-09-24 14:57:00 99 /min [facility] Body height 2023-09-18 15:29:00 154.9 cm [facility] Systolic blood pressure 2023-09-05 15:13:00 110 mm[Hg] [facility] Diastolic blood pressure 2023-09-05 15:13:00 56 mm[Hg] [facility] Heart rate 2023-09-05 15:13:00 66 /min [facility] Body temperature 2023-09-05 15:13:00 36.72 Stephanie [facility] Respiratory rate 2023-09-05 15:13:00 18 /min [facility] Body height 2023-09-05 15:13:00 154.9 cm [facility] Body weight 2023-09-05 15:13:00 127.007 kg [facility] BMI 2023-09-05 15:13:00 52.91 kg/m2 [facility] Oxygen saturation in Arterial blood by Pulse oximetry 2023-09-05 15:13:00 100 /min [facility] Systolic blood pressure 2023-08-04 15:27:00 114 mm[Hg] [facility] Diastolic blood pressure 2023-08-04 15:27:00 70 mm[Hg] [facility] Heart rate 2023-08-04 15:27:00 67 /min [facility] Body temperature 2023-08-04 15:27:00 35.61 Stephanie [facility] Body height 2023-08-04 15:27:00 154.9 cm [facility] Body weight 2023-08-04 15:27:00 127.461 kg [facility] BMI 2023-08-04 15:27:00 53.09 kg/m2 [facility] Oxygen saturation in Arterial blood by Pulse oximetry 2023-08-04 15:27:00 99 /min [facility] Systolic blood pressure 2023-07-07 15:31:00 128 mm[Hg] [facility] Diastolic blood pressure 2023-07-07 15:31:00 88 mm[Hg] [facility] Heart rate 2023-07-07 15:30:00 75 /min [facility] Body temperature 2023-07-07 15:30:00 36.67 Stephanie [facility] Body height 2023-07-07 15:30:00 154.9 cm [facility] Body weight 2023-07-07 15:30:00 127.37 kg [facility] BMI 2023-07-07 15:30:00 53.06 kg/m2 [facility] Oxygen saturation in Arterial blood by Pulse oximetry 2023-07-07 15:30:00 98 /min [facility] Systolic blood pressure 2023-11-17 21:59:00 132 mm[Hg] [facility] Diastolic blood pressure 2023-11-17 21:59:00 77 mm[Hg] [facility] Heart rate 2023-11-17 21:59:00 74 /min [facility] Body temperature 2023-11-17 21:59:00 36.72 Stephanie [facility] Respiratory rate 2023-11-17 21:59:00 20 /min [facility] Oxygen saturation in Arterial blood by Pulse oximetry 2023-11-17 21:59:00 96 /min [facility] Body height 2023-11-16 16:57:00 152.4 cm [facility] Body weight 2023-11-16 16:57:00 130.182 kg [facility] BMI 2023-11-16 16:57:00 56.05 kg/m2 [facility] Procedures Procedure Date / Time Performed Performing Clinician Source FLU VACC ([id number]), 6 MO-64 YRS, .5ML, IM, QUAD (FLUCELVAX) 2023-12-11 15:06:44 Hollis Goldberg [facility] PPD (TB) 2023-12-11 15:06:21 [facility] MR VENOGRAM HEAD W WO CONTRAST 2023-11-17 19:54:13 Rad[facility] MR VENOGRAM HEAD W WO CONTRAST 2023-11-17 19:54:13 Radha [facility] SEDIMENTATION RATE 2023-11-17 17:14:00 Manuel Neely [facility] SEDIMENTATION RATE 2023-11-17 17:14:00 Manuel Neely [facility] XR CHEST 2 VW 2023-11-17 00:14:57 Manuel Neely [facility] XR CHEST 2 VW 2023-11-17 00:14:57 Manuel Neely [facility] IR SPINAL LUMBAR PUNCTURE DIAGNOSTIC 2023-11-16 18:43:58 Chin [facility] IR SPINAL LUMBAR PUNCTURE DIAGNOSTIC 2023-11-16 18:43:58 [facility] 2023-11-14 18:50:52 Ma[facility] MR BRAIN WO CONTRAST 2023-11-14 18:50:52 Maite Anne [facility] MR ANGIOGRAM HEAD WO CONTRAST 2023-11-14 18:49:52 Maite Flores [facility] MR ANGIOGRAM HEAD WO CONTRAST 2023-11-14 18:49:52 Maite Flores [facility] MR ORBIT W WO CONTRAST 2023-11-14 18:49:35 Maite Kaur [facility] MR ORBIT W WO CONTRAST 2023-11-14 18:49:35 Maite Kaur [facility] PROTHROMBIN TIME / INR 2023-11-13 09:30:00 Maite Kaur [facility] PROTHROMBIN TIME / INR 2023-11-13 09:30:00 Maite Kaur [facility] PHOSPHORUS 2023-11-13 02:09:00 Bebo Flores [facility] MAGNESIUM 2023-11-13 02:09:00 Bebo Flores [facility] FOLATE 2023-11-13 02:09:00 Manuel Neely [facility] TEST, SERUM 2023-11-13 02:09:00 Malorie Torres [facility] BASIC METABOLIC PANEL (NA, K, CL, CO2, GLUCOSE, BUN, CREATININE, CA) 2023-11-13 02:09:00 Maite Flores [facility] CBC WITH DIFF 2023-11-13 02:09:00 Bebo Flores [facility] ANTI-NUCLEAR ANTIBODY SCREEN 2023-11-13 02:09:00 Maite Flores [facility] HOMOCYSTEINE 2023-11-13 02:09:00 Manuel Neely [facility] SYPHILIS IGG/IGM 2023-11-13 02:09:00 Manuel Neely [facility] ANTI-NUCLEAR ANTIBODY-PATHOLOGIST INTERPRETATION 2023-11-13 02:09:00 Maite Flores [facility] TEST, SERUM 2023-11-13 02:09:00 Malorie Torres [facility] CBC WITH DIFF 2023-11-13 02:09:00 Bebo Flores [facility] BASIC METABOLIC PANEL (NA, K, CL, CO2, GLUCOSE, BUN, CREATININE, CA) 2023-11-13 02:09:00 Maite Flores [facility] MAGNESIUM 2023-11-13 02:09:00 Bebo Flores [facility] PHOSPHORUS 2023-11-13 02:09:00 Bebo Flores [facility] ANTI-NUCLEAR ANTIBODY SCREEN 2023-11-13 02:09:00 Maite Flores [facility] ANTI-NUCLEAR ANTIBODY-PATHOLOGIST INTERPRETATION 2023-11-13 02:09:00 Maite Flores [facility] SYPHILIS IGG/IGM 2023-11-13 02:09:00 Manuel [facility] 2023-11-13 02:09:00 Chin Manuel [facility] HOMOCYSTEINE 2023-11-13 02:09:00 Manuel Neely [facility] EXTRA TUBE LT. GREEN 2023-11-13 01:13:00 Siddhartha Olson [facility] EXTRA TUBE LT. GREEN 2023-11-13 01:13:00 Siddhartha Olson [facility] VITAMIN B12, LEVEL 2023-11-12 23:45:00 Maite Flores [facility] THYROID STIMULATING HORMONE 2023-11-12 23:45:00 Maite Flores [facility] BASIC METABOLIC PANEL (NA, K, CL, CO2, GLUCOSE, BUN, CREATININE, CA) 2023-11-12 23:45:00 Mariely Torres [facility] SEDIMENTATION RATE 2023-11-12 23:45:00 Maite Floreshurleyjillian [facility] CBC WITH DIFF 2023-11-12 23:45:00 Mariely Torres [facility] CBC WITH DIFF 2023-11-12 23:45:00 Mariely Torres [facility] BASIC METABOLIC PANEL (NA, K, CL, CO2, GLUCOSE, BUN, CREATININE, CA) 2023-11-12 23:45:00 Mariely Torres [facility] THYROID STIMULATING HORMONE 2023-11-12 23:45:00 Maite Floers [facility] SEDIMENTATION RATE 2023-11-12 23:45:00 Maite Floreshurleyjillian [facility] VITAMIN B12, LEVEL 2023-11-12 23:45:00 Maite Flores [facility] CONSENT/REFUSAL FOR DIAGNOSIS AND TREATMENT 2023-11-12 22:11:43 Doctor Unassigned, [place] [facility] CONSENT/REFUSAL FOR DIAGNOSIS AND TREATMENT 2023-11-12 22:11:43 Doctor Unassigned, [place] [facility] OCT, OPTIC NERVE - OU - BOTH EYES 2023-11-12 20:07:26 Shanda Saunders [facility] OCT, OPTIC NERVE - OU - BOTH EYES 2023-11-12 20:07:26 Shanda Saunders [facility] POCT MOLECULAR FLU 2023-09-24 15:09:00 Davion Vizcarra [facility] POCT MOLECULAR FLU 2023-09-24 15:09:00 Davion Vizcarra [facility] POCT MOLECULAR STREP 2023-09-24 15:07:00 Trell Vizcarra [facility] POCT MOLECULAR STREP 2023-09-24 15:07:00 Trell Vizcarra [facility] POCT SARS-COV-2 ANTIGEN (BINAX NOW) 2023-09-24 00:00:00 Jen Vizcarra [facility] POCT SARS-COV-2 ANTIGEN (BINAX NOW) 2023-09-24 00:00:00 Jen Vizcarra [facility] CONSENT/REFUSAL FOR DIAGNOSIS AND TREATMENT 2023-09-05 14:48:39 Doctor Unassigned, [place] [facility] CONSENT/REFUSAL FOR DIAGNOSIS AND TREATMENT 2023-09-05 14:48:39 Doctor Unassigned, [place] [facility] EMERGENCY SERVICES AGREEMENTS AND AUTHORIZATIONS 2023-09-05 05:01:00 Doctor Unassigned, [place] [facility] PNEUMOCOCCAL 20 CONJUGATE (PREVNAR 20) VACCINE 2023-08-04 15:48:55 Jen Vizcarra [facility] ASSIGNMENT OF BENEFITS 2023-07-07 15:15:06 Docto r Unassigned, [place] [facility] AUTHORIZATION FOR RELEASE OF PHI 2022-06-27 05:01:00 Doctor Unassigned, [place] [facility] Encounters Start Date/Time End Date/Time Encounter Type Admission Type Attending [facility] Care Facility Care Department Encounter ID Source 2021-09-27 11:39:57 Outpatient [address]Y RUIZ [facility] [id number] [facility] 2021-09-27 03:00:[address] [facility] [id number] [facility] 2024-01-07 11:20:00 2024-01-07 11:20:00 Outpatient R JEN VIZCARRA [facility] [id number] [facility] 2024-01-04 15:30:00 2024-01-04 15:30:00 Outpatient R SOM HOLLIS [facility] [id number] [facility] 2023-12-17 10:00:00 2023-12-17 10:20:00 Nurse Visit Nurse, Adc Gavino Goldberg [facility] 1.2.840.114 350.1.13.10 4.2.7.2.686 [id number] [facility] 2023-12-17 10:00:00 2023-12-17 10:00:00 Outpatient R ASHLYNHOLLIS [facility] [id number] [facility] 2023-12-17 00:00:00 2023-12-17 00:00:00 Letter (Out) AshlynJeysonHollis [facility] 1.2.840.114 350.1.13.10 4.2.7.2.686 [id number] [facility] 2023-12-15 10:30:00 2023-12-15 11:10:16 Outpatient R GOLDBERGHOLLIS [facility] [id number] [facility] 2023-12-15 10:30:00 2023-12-15 11:10:16 Office Visit AshlynJeysonHollis [facility] 1.2.840.114 350.1.13.10 4.2.7.2.686 [id number] [facility] 2023-12-11 09:00:00 2023-12-11 09:33:35 Out[id number] [facility] 2023-12-11 09:00:00 2023-12-11 09:33:35 Office Visit Jeyson Goldbergssica [facility] ANTONIO WILLETT [facility] 1.2.840.114 350.1.13.10 4.2.7.2.686 [id number] [facility] 2023-12-08 11:00:00 2023-12-08 11:00:00 Outpatient R NOHEMI KEARNSICA [facility] [id number] [facility] 2023-11-12 16:39:00 2023-11-17 17:50:00 Outpatient X RAMESH GUTIERREZ DIOSELY [facility] SUKUMAR [id number] [facility] 2023-11-12 16:39:00 2023-11-17 17:50:00 Emergency Mariely Torres Jorge Silveira, Diosely 1.2.840.1 71590.1.1 3.104.2.7 .3.399090 .8 [id number] [facility] 2023-11-12 13:15:00 2023-11-12 14:18:47 Outpatient R SHANDA SAUNDERS [facility] [id number] [facility] 2023-11-12 13:15:00 2023-11-12 14:18:47 Office Visit Shanda Saunders 1.2.840.1 [id number] 3.104.2.7 .3.318378 .8 [id number] [facility] 2023-11-12 13:00:00 2023-11-12 14:12:43 Outpatient R SHANDA SAUNDERS [facility] [id number] [facility] 2023-11-12 13:00:00 2023-11-12 14:12:43 Office Visit Shanda Saunders 1.2.840.1 [id number] 3.104.2.7 .3.412538 .8 [id number] [facility] 2023-11-12 13:45:00 2023-11-12 13:50:00 Ancillary Procedure Shanda Saunders 1.2.840.1 09073.1.1 3.104.2.7 .3.421026 .8 [id number] [facility] 2023-11-12 00:00:00 2023-11-12 00:00:00 Travel 1.2.840.1 71706.1.1 3.104.2.7 .3.136055 .8 1.2.840.114 350.1.13.10 4.2.7.3.698 084.8 [id number] [facility] 2023-09-29 00:00:00 2023-09-29 00:00:00 Patient Secure Msg Doctor Unassigned, [place] 1.2.840.1 90523.1.1 3.104.2.7 .3.191979 .8 [id number] [facility] 2023-09-24 10:00:00 2023-09-24 11:00:21 Outpatient R JEN VIZCARRA [facility] [id number] [facility] 2023-09-24 10:00:00 2023-09-24 11:00:21 Office Visit Jen Vizcarra 1.2.840.1 50056.1.1 3.104.2.7 .3.414745 .8 [id number] [facility] 2023-09-24 00:00:00 2023-09-24 00:00:00 Travel 1.2.840.1 38764.1.1 3.104.2.7 .3.482240 .8 1.2.840.114 350.1.13.10 4.2.7.3.698 084.8 [id number] [facility] 2023-09-24 00:00:00 2023-09-24 00:00:00 Letter (Out) Jen Vizcarra 1.2.840.1 79587.1.1 3.104.2.7 .3.996612 .8 [id number] [facility] 2023-09-18 10:30:00 2023-09-18 10:47:10 Outpatient R GIOVANNAVIOLET [facility] [id number] [facility] 2023-09-18 10:30:00 2023-09-18 10:47:10 Office Visit Giovanna VioletEsau [facility] 1.2.840.1 25007.1.1 3.104.2.7 .3.394139 .8 [id number] [facility] 2023-09-18 00:00:00 2023-09-18 00:00:00 Travel 1.2.840.1 55885.1.1 3.104.2.7 .3.645430 .8 1.2.840.114 350.1.13.10 4.2.7.3.698 084.8 [id number] [facility] 2023-09-12 00:00:00 2023-09-12 00:00:00 Telephone Jen Vizcarra 1.2.840.1 42334.1.1 3.104.2.7 .3.213690 .8 [id number] [facility] 2023-09-05 10:14:00 2023-09-05 13:06:00 Emergency X Ubaldo BACON [facility] ERT [id number] [facility] 2023-09-05 10:14:00 2023-09-05 13:06:00 Emergency Ubaldo Bacon 1.2.840.1 90644.1.1 3.104.2.7 .3.984678 .8 [id number] [facility] 2023-09-05 00:00:00 2023-09-05 00:00:00 Travel 1.2.840.1 67308.1.1 3.104.2.7 .3.132764 .8 1.2.840.114 350.1.13.10 4.2.7.3.698 084.8 [id number] [facility] 2023-08-13 09:00:00 2023-08-13 09:15:00 Collar Stay Fuser Tender Visit 2, Adc Lab Jen Vizcarra [facility] 1.2.840.114 350.1.13.10 4.2.7.2.686 [id number] [facility] 2023-08-13 09:00:00 2023-08-13 09:00:00 Outpatient R JEN VIZCARRA [facility] [id number] [facility] 2023-08-11 00:00:00 2023-08-11 00:00:00 Telephone Jen Vizcarra [facility] 1.2.840.114 350.1.13.10 4.2.7.2.686 [id number] [facility] 2023-08-07 00:00:00 2023-08-07 00:00:00 Telephone Jen Vizcarra [facility] 1.2.840.114 350.1.13.10 4.2.7.2.686 [id number] [facility] 2023-08-04 10:00:00 2023-08-04 10:54:10 Outpatient R JEN VIZCARRA [facility] [id number] [facility] 2023-08-04 10:00:00 2023-08-04 10:54:10 Office Visit Jen Vizcarra [facility] 1.2.840.114 350.1.13.10 4.2.7.2.686 [id number] [facility] 2023-08-04 00:00:00 2023-08-04 00:00:00 Patient Secure Msg Doctor Unassigned, [place] [facility] 1.2.840.114 350.1.13.10 4.2.7.2.686 [id number] [facility] 2023-07-07 11:30:00 2023-07-07 11:45:00 Collar Stay Fuser Tender Visit 2, Adc Lab Zackery [facility] 1.2.840.114 350.1.13.10 4.2.7.2.686 [id number] [facility] 2023-07-07 10:00:00 2023-07-07 11:25:08 Outpatient R ZACKERY [facility] [id number] [facility] 2023-07-07 10:00:00 2023-07-07 11:25:08 Office Visit Zackery [facility] 1.2.840.114 350.1.13.10 4.2.7.2.686 [id number] [facility] 2023-07-07 00:00:00 2023-07-07 00:00:00 Orders Only Doctor Unassigned, [place] [facility] 1.2840.114 350.1.13.10 4.2.7.2.686 [id number] [facility] 2023-05-12 10:00:00 2023-05-12 10:00:00 Outpatient R ZACKERY [facility] [id number] [facility] 2022-06-27 00:00:00 2022-06-27 00:00:00 Orders Only Doctor Unassigned, [place] [facility] 1.2840.114 350.1.13.10 4.2.7.2.686 [id number] [facility] 2020-07-16 10:15:00 2020-07-16 10:15:[address] [facility] [id number] [facility] 2020-06-29 15:00:00 2020-06-29 15:00:00 Outpatient R RUIZSANDY [facility] [id number] [facility] 2020-06-27 13:45:00 2020-06-27 13:45:00 Outpatient R XENA ARCADIO [facility] [id number] [facility] 2020-06-15 10:30:00 2020-06-15 10:30:00 Outpatient R SANDY RUIZ [facility] [id number] [facility] 2020-06-11 12:47:01 2020-06-11 12:47:01 Outpatient R ARLYN LADD [facility] [id number] [facility] 2020-05-24 11:30:00 2020-05-24 11:30:00 Outpatient R DONTE SANCHEZ [facility] [id number] [facility] 2020-05-15 13:15:00 2020-05-15 13:15:00 Outpatient R SANDY RUIZ [facility] [id number] [facility] 2020-05-07 10:30:00 2020-05-07 10:30:[address] [facility] [id number] [facility] 2020-04-27 11:15:00 2020-04-27 11:15:00 Outpatient R DONTE SANCHEZ [facility] [id number] [facility] 2020-04-11 14:30:00 2020-04-11 14:30:00 Outpatient R SIMON ENCARNACION [facility] [id number] [facility] 2020-04-10 13:00:00 2020-04-10 13:00:00 Outpatient R SANDY RUIZ [facility] [id number] [facility] 2020-03-29 14:00:00 2020-03-29 14:00:[address] [facility] [id number] [facility] 2020-03-26 10:30:00 2020-03-26 10:30:00 Outpatient R DONTE SANCHEZ [facility] [id number] [facility] 2020-03-23 08:00:00 2020-03-23 08:00:[address] [facility] [id number] [facility] 2020-03-16 15:15:00 2020-03-16 15:15:[address] [facility] [id number] [facility] 2020-03-14 14:30:00 2020-03-14 14:30:[address] [facility] [id number] [facility] 2020-03-12 08:00:00 2020-03-12 08:00:[address] [facility] [id number] [facility] 2020-03-01 09:15:00 2020-03-01 09:15:00 Outpatient R DONTE SANCHEZ [facility] [id number] [facility] 2020-02-29 08:45:00 2020-02-29 08:45:00 Outpatient R BISMARK GALICIA [facility] [id number] [facility] 2020-02-17 10:45:00 2020-02-17 10:45:[address] [facility] [id number] [facility] 2020-02-16 13:30:00 2020-02-16 13:30:[address] BENTON [facility] [id number] [facility] Results Test Description Test Time Test Comments Results Result Co mments Source [facility] [id number] 05:21:02* Test Item Value Reference Range Interpretation Comme nts VIT B12 (test code = 5414456731) 297 pg/mL 240-930 RISA (test code = RISA) Biotin has been reported to cause a positive bias, interpret results relative to patient's use of biotin. Lab Interpretation (test code = 59416-8) Normal [facility] [id number] 05:02:18 * Test Item Value Reference Range Interpretation Comme nts TSH (test code = 5663335914) 0.80 See_Comment Biotin has been reported to cause a negative bias, interpret results relative to patient's use of biotin. [Automated message] The system which generated this result transmitted reference range: 0.45 - 4.70 mIU/L. The reference range was not used to interpret this result as normal/abnormal. Lab Interpretation (test code = 47265-3) Normal [facility] [id number] 05:02:18 * Test Item Value Reference Range Interpretation Comme nts TSH (test code = 6995815273) 0.80 See_Comment Biotin has been reported to cause a negative bias, interpret results relative to patient's use of biotin. [Automated message] The system which generated this result transmitted reference range: 0.45 - 4.70 mIU/L. The reference range was not used to interpret this result as normal/abnormal. Lab Interpretation (test code = 30177-4) Normal [facility] - [id number] 01:33:19* Test Item Value Reference Range Interpretation Comme nts ESR (test code = 16464-9) 24 See_Comment [Automated message] The system which generated this result transmitted reference range: 2 - 30 mm/HR. The reference range was not used to interpret this result as normal/abnormal. Lab Interpretation (test code = 62127-9) Normal [facility] Metabolic Panel (NA, K, CL, CO2, GLUCOSE, BUN, CREATININE, CA)2023-11-13 00:10:36* Test Item Value Reference Range Interpretation Comme nts NA (test code = 8748715110) 136 mmol/L 135-145 K (test code = 2567961890) 3.9 mmol/L 3.5-5.0 Slight hemolysis CL (test code = 4510156241) 100 mmol/L 98-108 CO2 TOTAL (test code = 8877149905) 28 mmol/L 23-31 AGAP (test code = 4135371709) 8 2-16 BUN (test code = 9133205058) 14 mg/dL 7-23 Slight hemolysis GLUCOSE (test code = 4241246756) 130 mg/dL 70-110 H CREATININE (test code = 3108565873) 0.58 mg/dL 0.50-1.04 CALCIUM (test code = 8684209954) 8.8 mg/dL 8.6-10.6 eGFR (test code = 97311-2) 125.0 mL/min/1.73m2 CKD-EPI eGFR (2020). Assuming creatinine has been stable day-to-day for at least three months, the eGFR indicates Category G1 (>= 90 mL/min/1.73 m2) Lab Interpretation (test code = 74838-1) Abnormal [facility] with Vudv2642-06-23 23:59:50* Test Item Value Reference Range Interpretation Comme nts WBC (test code = 6690-2) 7.63 See_Comment [Automated [employer] ge] The system which generated this result transmitted reference range: 4.30 - 11.10 10*3/?L. The reference range was not used to interpret this result as normal/abnormal. RBC (test code = 789-8) 4.52 See_Comment [Automated [employer] ge] The system which generated this result transmitted reference range: 3.93 - 5.25 10*6/?L. The reference range was not used to interpret this result as normal/abnormal. HGB (test code = 718-7) 11.7 g/dL 11.6-15.0 HCT (test code = 4544-3) 37.0 % 35.7-45.2 MCV (test code = 787-2) 81.9 fL 80.6-95.5 MCH (test code = 785-6) 25.9 pg 25.9-32.8 MCHC (test code = 786-4) 31.6 g/dL 31.6-35.1 RDW-SD (test code = 40585-5) 44.7 fL 39.0-49.9 RDW-CV (test code = 788-0) 15.3 % 12.0-15.5 PLT (test code = 777-3) 240 See_Comment [Automated [employer] ge] The system which generated this result transmitted reference range: 166 - 358 10*3/?L. The reference range was not used to interpret this result as normal/abnormal. MPV (test code = 88853-8) 12.6 fL 9.5-12.9 NRBC/100 WBC (test code = 5325606238) 0.0 See_Comment [Automated [employer] ssage] The system which generated this result transmitted reference range: 0.0 - 10.0 /100 WBCs. The reference range was not used to interpret this result as normal/abnormal. NRBC x10^3 (test code = 3105778987) See_Comment [Automated messa ge] The system which generated this result transmitted reference range: 10*3/?L. The reference range was not used to interpret this result as normal/abnormal. GRAN MAT (NEUT) % (test code = 770-8) 67.7 % IMM GRAN % (test code = 6783239131) 0.30 % LYMPH % (test code = 736-9) 25.7 % MONO % (test code = 5905-5) 3.4 % EOS % (test code = 713-8) 2.4 % BASO % (test code = 706-2) 0.5 % GRAN MAT x10^3(ANC) (test code = 1530505560) 5.17 10*3/uL 1.88-7.09 IMM GRAN x10^3 (test code = 8629561587) 0.00-0.06 LYMPH x10^3 (test code = 731-0) 1.96 10*3/uL 1.32-3.29 MONO x10^3 (test code = 742-7) 0.26 10*3/uL 0.33-0.92 L EOS x10^3 (test code = 711-2) 0.18 10*3/uL 0.03-0.39 BASO x10^3 (test code = 704-7) 0.04 10*3/uL 0.01-0.07 Lab Interpretation (test code = 17437-9) [facility] - Both Mwfv4649-75-15 20:07:26* Test Item Value Reference Range Interpretation Comme nts Average RNFL Baseline (OS) (test code = 786369347) 113 Average RNFL Baseline (OD) (test code = 261096869) 113 Radiology Study observation (narrative) (test code = 47062-3) RISA (test code = RISA) Device utilized wa s Cirrus. Right EyeTo assess optic nerve function and for use in future follow-up. Reliability: good and adequate. 113. Left EyeTo assess optic nerve function and for use in future follow-up. Reliability: good and adequate. 113. NotesSwelling of the optic nerves >> nasally OU [facility] MOLECULAR [id number] 15:21:09* Test Item Value Reference Range Interpretation Comme nts POCT Molecular FluA (test co de = 86665-9) Negative Negative POCT Molecular FluB (test co de = 74093-5) Negative Negative Lab Interpretation (test cod e = 58202-6) Normal [facility] MOLECULAR QID7822-37-63 15:21:09* Test Item Value Reference Range Interpretation Comme nts POCT Molecular FluA (test co de = 76516-7) Negative Negative POCT Molecular FluB (test co de = 67071-1) Negative Negative Lab Interpretation (test cod e = 31491-9) Normal [facility] MOLECULAR GHM6916-06-55 15:21:09* Test Item Value Reference Range Interpretation Comme nts POCT Molecular FluA (test co de = 00731-3) Negative Negative POCT Molecular FluB (test co de = 60103-1) Negative Negative Lab Interpretation (test cod e = 45607-0) Normal [facility] MOLECULAR DIVRF7196-24-03 15:15:03* Test Item Value Reference Range Interpretation Comme nts POCT Molecular Strep (test c ode = 96893-2) Negative Negative Lab Interpretation (test cod e = 14380-7) Normal [facility] MOLECULAR HJOJK4422-73-91 15:15:03* Test Item Value Reference Range Interpretation Comme nts POCT Molecular Strep (test c ode = 18740-6) Negative Negative Lab Interpretation (test cod e = 51834-7) Normal [facility] MOLECULAR LGJBU0940-23-31 15:15:03* Test Item Value Reference Range Interpretation Comme nts POCT Molecular Strep (test c ode = 50371-7) Negative Negative Lab Interpretation (test cod e = 24250-2) Normal [facility] SARS-COV-2 ANTIGEN (BINAX NOW)2023-09-24 15:14:00* Test Item Value Reference Range Interpretation Comme nts POCT SARS-COV-2 ANTIGEN (cleo t code = 00496-1) Positive Not Detected A On board controls acceptable with C Line (test code = 3574) Yes Lab Interpretation (test cod e = 03798-4) Abnormal [facility] SARS-COV-2 ANTIGEN (BINAX NOW)2023-09-24 15:14:00* Test Item Value Reference Range Interpretation Comme nts POCT SARS-COV-2 ANTIGEN (cleo t code = 00980-1) Positive Not Detected A On board controls acceptable with C Line (test code = 3574) Yes Lab Interpretation (test cod e = 05491-0) Abnormal [facility] SARS-COV-2 ANTIGEN (BINAX NOW)2023-09-24 15:14:00* Test Item Value Reference Range Interpretation Comme nts POCT SARS-COV-2 ANTIGEN (cleo t code = 25640-3) Positive Not Detected A On board controls acceptable with C Line (test code = 3574) Yes Lab Interpretation (test cod e = 81483-6) Abnormal [facility] Notes Date/Time Note Provider Source 2023-08-13 09:00:00 HzqMkU0sAzFqMx8H/Ucm i0ygTALcl/g yK/gFzlcjXRUmhq/NqwIKVn6/SwXVn/ wO9876-53-41R01:00:00 Pt said she needed lab work done for dr rosenthal Called clinic and they dont know what lab work to order. Pt left 22170-8Wkrvi QpieQC3921-72-04Z49:47:55Nurse NoteTXT1.2.840.808506.1.13.104. 2.7.2.541090|[id number] [facility] prhi35095-3Knajy JvzhNE715510899Wtmx [address] BulyRymxfiugmXqeozcwdiOZYL94928 80244XVEPKSJBSACCPJPGGBNGKR1572 -09-14T09:47:551.2.840.462859.1 .72.3.15|1.2.840.524591.1.13.10 4.2.7.2.727879_[id number] Natalie Heart [facility] 2023-08-11 15:48:00 pY04Vsc/qg8Dx+voWinT rEtwk65derZ Ii/jl85GrUUe/oXHYpnswBGGWapYmy5 Ak5106-01-47S00:48:00 Pt states that her insurance company will not cover Wegovy. Pt advised to reach out to her insurance company to see what weight loss medications are covered under her plan. Pt verbalizes understanding. 69409-5Rphzadufw encounter JqyoPB1486-58-50Y50:49:15Teleph one encounter NoteTXT1.2.840.646222.1.13.104. 2.7.2.178671|[id number] [facility] patient vacx06566-1KprsYG013025754Xftmz A Case RN[address] HtxcRiqazlmwpMebmnrxdpVVSN74426 83401FCJXMGDCDVNRAYWGCZMVHB9966 -09-12T15:49:151.2.840.058257.1 .72.3.15|1.2.840.425420.1.13.10 4.2.7.2.727879_[id number] Melanie Kenyon Case RN [facility] 2023-08-11 13:32:41 xxUSX/F4D5cMrV/J2oxj lcDqN5bCZa6 mE8tMLbvvr+uD1GdQR0Q7uUfcCuWqWu 4w9790-88-29O56:32:41 Patient called to let Dr. Vizcarra know that her insurance will not cover Wegovy. She wants to know if there is a different medication that he wants to prescribe. 77359-4Bvpbhhhkd encounter LvgcAJ3584-95-91S14:35:51Teleph one encounter NoteTXT1.2.840.246249.1.13.104. 2.7.2.377203|[id number] ble for patient kdpp88200-3GabpYD674389176Ltbmn K [address]TX[place] 66918INEPDEUEKGWNRKRWMBYSOV8831 -09-12T13:35:511.2.840.500715.1 .72.3.15|1.2.840.626668.1.13.10 4.2.7.2.727879_[id number] [facility] 08:59:33 4wEz4ighhG2DkXQcoC0B dIN/eEwqMR8 JmSyOal/2CPBV62ZJNdXCna855xs0wV /w1292-65-51U30:59:33 PA submitted via covermymeds.Medication: Albuterol Sulfate HFA 108KEY: [id number] STARKS MA 08/07/2023 9:00 AM 93502-8Msxmnidsb encounter DbgjTQ9072-39-71Q27:01:06Teleph one encounter NoteTXT1.2.840.722924.1.13.104. 2.7.2.155104|[id number] ble for patient cgxk15396-0DwswJU871610347Nygcd l M Salazar [address] 55543OJFGNSANNDLMSHXPUZKNIS9641 -09-08T09:01:061.2.840.853960.1 .72.3.15|1.2.840.195245.1.13.10 4.2.7.2.727879_[id number] Toma Starks MA [facility] 2023-07-07 11:30:00 5RJc/gzfasCzJOTAsVkA IXiMDGj7ISs 1D6q/PzmZ37qyUQaMWndFa7s1s5Tybp ah9290-54-08B78:30:00 Images from the original note were not included.Venipuncture collection performed by clean technique on the right anticubitus. Total of 1 attempts were made. Slight pressure and a bandage/dressing were applied to the site(s). The patient experienced no complications. The following specimens were processed according to instructions and sent to [facility] laboratories per lab order on 07/07/2023: LT BLUE SST 1 RED LAV 2 PPT DK GREEN (LiHep) DK GREEN (SodH) MORRISSEY DK BLUE (K2) DK BLUE (S) ACD Blood Culture NIPT/NTD Patient has been identified by and was provided with cup, antiseptic towelette, and clean catch instructions. 1 urine specimen(s) sent. Unpreserved 1 Urine Culture Aptima tube Other urine 99765-2Bjdmv RbpzWO6383-85-53U67:38:28Nurse NoteTXT1.2.840.234085.1.13.104. 2.7.2.932496|[id number] ble for patient kyvk54070-5Oqxkp NoteLNUT[address] SqwcQsiaxkbspQsjquoxgzZUFA87878 68207NUVQXRIPJBPEHQSKAVRIZK5825 -08-08T11:38:281.2.840.679258.1 .72.3.15|1.2.840.860941.1.13.10 4.2.7.2.727879_[id number] [facility]"
[2024-01-06 06:58] LABS: Absolute Lymphocytes (CBC) 0.9 K/uL (0.7-4.9); Hematocrit 34.9 % (36.0-45.0); Lymphocytes % 23.7 % (15.3-44.8); MPV 9.4 fL (7.6-11.3); Platelets 218 thou/uL (152-406); RBC Red Blood Cell Count 4.42 M/uL (3.86-4.86)
[2024-01-06 07:01] LABS: Specific Gravity > 1.030 (1.005-1.030)
[2024-01-06 07:04] LABS: Specific Gravity > 1.030 (1.005-1.030); Urine Bacteria None Seen /HPF (<20); Urine Bilirubin NEGATIVE (Negative); Urine Blood 3+ (Negative); Urine Clarity Turbid (Clear); Urine Color Yellow (Yellow); Urine Glucose NEGATIVE (Negative); Urine Mucus Slight /HPF (None Seen); Urine Protein TRACE (Negative); Urine RBC <5 /HPF (None Seen); Urine Urobilinogen Normal (Normal); Urine pH 5.5 (5.0-7.0)
[2024-01-06 07:14] LABS: Albumin 3.3 g/dL (3.4-5.0); Bilirubin Total 0.8 mg/dL (0.2-1.0); Potassium 3.6 mEq/L (3.5-5.1); Protein, Total 7.4 g/dL (6.4-8.2)
[2024-01-06 07:35] LABS: SARS-CoV-2 Antigen Rapid Res Negative (Negative)
--- NOTE | 2024-01-06 08:28 | ER ---
Nurse's Notes [facility] Name: Krishan Damian Age: 28 yrs Sex: Female : 1995 Arrival Date: 01/06/2024 Time: 06:10 Bed 10 Private MD: Diagnosis: Influenza B;Anemia, unspecified;yeast infection Presentation: 01/06 06:26 Chief complaint: Patient states: nausea, vomiting x 4 episodes,diarrhea, body aches pf1 with headache pain of 6,onset yesterday. Coronavirus screen: Vaccine status: Patient reports receiving the 2nd dose of the covid vaccine. Client denies travel out of the [place] in the last 14 days. Client presents with at least one sign or symptom that may indicate coronavirus-19. Ebola Screen: Patient negative for fever greater than or equal to 101.5 degrees Fahrenheit, and additional compatible Ebola Virus Disease symptoms. Initial Sepsis Screen: Does the patient meet any 2 criteria? No. Patient's initial sepsis screen is negative. Does the patient have a suspected source of infection? No. Patient's initial sepsis screen is negative. Risk Assessment: Do you want to hurt yourself or someone else? Patient reports no desire to harm self or others. 06:26 Method Of Arrival: Ambulatory pf1 06:26 Acuity: CRISTHIAN 3 pf1 09:21 Onset of symptoms was January 05, 2024. 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 - Social history:: Smoking status: Patient denies any tobacco usage or history of. Patient/guardian denies using alcohol, street drugs. - Family history:: not pertinent. Screenin:33 [facility] ED Fall Risk Assessment (Adult) History of falling in the last 3 months, pf1 including since admission No falls in past 3 months (0 pts) Confusion or Disorientation No (0 pts) Intoxicated or Sedated No (0 pts) Impaired Gait No (0 pts) Mobility Assist Device Used No (0 pt) Altered Elimination No (0 pt) Score/Fall Risk Level 0 - 2 = Low Risk Oriented to surroundings, Maintained a safe environment, Educated pt \T\ family on fall prevention, incl call for assistance when getting out of bed, Assessed \T\ reinforced patient's understanding of fall precautions, Provided non-skid footwear, Hourly rounding (assess needs \T\ fall precautionary measures) done, Used ambulatory aids as needed (educated on \T\ assisted with), Used gait belt as appropriate. Abuse screen: Denies threats or abuse. Nutritional screening: No deficits noted. Tuberculosis screening: No symptoms or risk factors identified. Assessment: 06:31 General: Appears in no apparent distress. comfortable, obese, well groomed, well pf1 developed, Behavior is calm, cooperative, appropriate for age, quiet. Pain: Complains of pain in headache and body aches Pain currently is 8 out of 10 on a pain scale. Neuro: Level of Consciousness is awake, alert, obeys commands, Oriented to person, place, time, situation, Reports headache. Cardiovascular: Capillary refill < 3 seconds Patient's skin is warm and dry. Respiratory: Airway is patent Respiratory effort is even, unlabored, Respiratory pattern is regular, symmetrical. GI: Abdomen is round non-distended, Reports diarrhea, nausea, vomiting. : No deficits noted. No signs and/or symptoms were reported regarding the genitourinary system. EENT: No deficits noted. No signs and/or symptoms were reported regarding the EENT system. 07:13 Reassessment: No changes from previously documented assessment. Patient and/or family ll1 updated on plan of care and expected duration. Pain level reassessed. Patient is alert, oriented x 3, equal unlabored respirations, skin warm/dry/pink. 09:00 Reassessment: No changes from previously documented assessment. Patient and/or family ll1 updated on plan of care and expected duration. Pain level reassessed. Patient is alert, oriented x 3, equal unlabored respirations, skin warm/dry/pink. Patient states feeling better. Patient states symptoms have improved. Vital Signs: 06:26 BP 131 / 61; Pulse 71; Resp 18; Temp 97.9; Pulse Ox 100% ; Weight 127.01 kg; Height 5 pf1 ft. 2 in. ; Pain 6/10; 08:57 BP 119 / 66; Pulse 65; Resp 16; Pulse Ox 100% ; Pain 0/10; ll1 06:26 Body Mass Index 51.21 (127.01 kg, 157.48 cm) pf1 06:26 Pain Scale: Adult pf1 08:57 Pain Scale: Adult ll1 ED Course: 06:17 Patient arrived in ED. gm2 06:28 Triage completed. pf1 06:33 Patient has correct armband on for positive identification. pf1 06:37 Chuy Turpin MD is Attending Physician. sp4 06:50 No provider procedures requiring assistance completed. Inserted saline lock: 20 gauge pf1 in right antecubital area, using aseptic technique. Blood collected. 06:53 CBC with Diff Sent. pf1 06:53 CMP Sent. pf1 06:53 Lipase Sent. pf1 06:53 Influenza Screen (a \T\ B) Sent. pf1 06:53 SARS RAPID Sent. pf1 06:53 Test, Urine Sent. pf1 06:53 Urinalysis w/ reflexes Sent. pf1 07:00 Provided Education on: ER procedures and process. ll1 07:33 Attending Physician role handed off by Chuy Turpin MD ms3 07:33 Tomas Godoy DO is Attending Physician. ms3 08:18 Dave Julio, JT is Primary Nurse. ll1 08:27 Rashi Herman DO is Referral Physician. ms3 08:58 IV discontinued, intact, bleeding controlled, No redness/swelling at site. Pressure ll1 dressing applied. 09:21 Patient placed. ll1 Administered Medications: 07:12 Drug: NS 0.9% IV 1000 ml IV at 1 bolus Per protocol; 1000 mL bolus Route: IV; Rate: 1 ll1 bolus; Site: right antecubital; 09:19 Follow up: Response: No adverse reaction; IV Status: Completed infusion; IV Intake: ll1 1000ml 07:12 Drug: Famotidine IVP 20 mg IVP once; dilute with 10 mL 0.9% NaCl; give over 2 minutes ll1 Route: IVP; Site: right antecubital; 09:19 Follow up: Response: No adverse reaction ll1 07:12 Drug: Ondansetron IVP 4 mg IVP once; over 2 minutes Route: IVP; Site: right antecubital;1 09:20 Follow up: Response: No adverse reaction ll1 07:12 Drug: Loperamide PO 4 mg PO once Route: PO; ll1 09:19 Follow up: Response: No adverse reaction ll1 Medication: 09:21 VIS not applicable for this client. 1 Intake: 09:19 IV: 1000ml; Total: 1000ml. ll1 Outcome: 08:27 Discharge ordered by . ms3 09:00 Patient left the ED. ll1 09:00 Discharged to home ambulatory, ll1 09:00 Condition: stable 09:00 Discharge instructions given to patient, Instructed on discharge instructions, follow up and referral plans. medication usage, Demonstrated understanding of instructions, follow-up care, medications, Prescriptions given X 1, Signatures: Dave Julio RN RN ll1 Tomas Godoy, DO ms3 Claudia Boyd RN RN pf1 Chuy Turpin MD MD sp4 Maria Ines Guajardo gm2
--- NOTE | 2024-01-06 08:28 | EDPHYS ---
Physician Documentation [facility] Name: Krishan Damian Age: 28 yrs Sex: Female : 1995 Arrival Date: 01/06/2024 Time: 06:10 Bed 10 Private MD: ED Physician Tomas Godoy HPI: 01/06 06:37 This 28 yrs old Female presents to ER via Ambulatory with complaints of sp4 Nausea/Vomiting/Diarrhea, Fever. 06:38 28-year-old female presents with acute onset of nausea vomiting diarrhea and fever.. 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 - Social history:: Smoking status: Patient denies any tobacco usage or history of. Patient/guardian denies using alcohol, street drugs. - Family history:: not pertinent. ROS: 06:38 Constitutional: Negative for fever, chills, and weight loss, positive for nausea, sp4 positive vomiting, positive diarrhea, positive fever 06:38 All other systems are negative, Exam: 06:38 Constitutional: This is a well developed, well nourished patient who is awake, alert, sp4 and in no acute distress. Head/Face: Normocephalic, atraumatic. Eyes: Pupils equal round and reactive to light, extra-ocular motions intact. Lids and lashes normal. Conjunctiva and sclera are not injected. Cornea within normal limits. Periorbital areas with no swelling, redness, or edema. ENT: Nares patent. No nasal discharge, no septal abnormalities noted. Tympanic membranes are normal and external auditory canals are clear. Oropharynx with no redness, swelling, or masses, exudates, or evidence of obstruction, uvula midline. Mucous membranes moist. Neck: Trachea midline, no thyromegaly or masses palpated, and no cervical lymphadenopathy. Supple, full range of motion without nuchal rigidity, or vertebral point tenderness. Chest/axilla: Normal chest wall appearance and motion. Nontender with no deformity. No lesions are appreciated. Cardiovascular: Regular rate and rhythm with a normal S1 and S2. No gallops, murmurs, or rubs. Normal PMI, no JVD. No pulse deficits. Respiratory: Lungs have equal breath sounds bilaterally, clear to auscultation and percussion. No rales, rhonchi or wheezes noted. No increased work of breathing, no retractions or nasal flaring. Abdomen/GI: Soft, non-tender, with normal bowel sounds. No distension or tympany. No guarding or rebound. No evidence of tenderness throughout. Back: No spinal tenderness. No costovertebral tenderness. Skin: Warm, dry with normal turgor. Normal color with no rashes, no lesions, and no evidence of cellulitis. MS/ Extremity: Pulses equal, no cyanosis. Neurovascular intact. Full, normal range of motion. Neuro: Awake and alert, GCS 15, oriented to person, place, time, and situation. Cranial nerves II-XII grossly intact. Motor strength 5/5 in all extremities. Sensory grossly intact. Psych: Awake, alert, with orientation to person, place and time. Behavior, mood, and affect are within normal limits Vital Signs: 06:26 BP 131 / 61; Pulse 71; Resp 18; Temp 97.9; Pulse Ox 100% ; Weight 127.01 kg; Height 5 pf1 ft. 2 in. ; Pain 6/10; 08:57 BP 119 / 66; Pulse 65; Resp 16; Pulse Ox 100% ; Pain 0/10; ll1 06:26 Body Mass Index 51.21 (127.01 kg, 157.48 cm) pf1 06:26 Pain Scale: Adult pf1 08:57 Pain Scale: Adult ll1 MDM: 06:38 Patient medically screened. sp4 06:39 Differential diagnosis: Nonspecific abd pain, gastritis, diverticulitis, viral sp4 gastroenteritis, gastroenteritis. Data reviewed: vital signs, nurses notes. 07:14 Transition of care: After a detail discussion of the patient's case, care is sp4 transferred to Tomas Godoy DO. 07:33 Transition of care: Care assumed from Chuy Turpin MD. hi3 08:31 I considered the following discharge prescriptions or medication management in the hi3 emergency department Medications were administered in the Emergency Department. See MAR. Care significantly affected by the following chronic conditions: Hypertension. Counseling: I had a detailed discussion with the patient and/or guardian regarding the historical points, exam findings, and any diagnostic results supporting the discharge/admit diagnosis, lab results, the need for outpatient follow up, to return to the emergency department if symptoms worsen or persist or if there are any questions or concerns that arise at home. ED course: Discussed zohc-wvr-yxofxzc use treatment with patient. Patient given prescription for Tamiflu. Patient follow-up with Dr. Herman in 2 to 3 days. Patient understands and agrees with plan. Questions were answered. Return precautions discussed include worsening symptoms, or any other concerns. 01/06 06:37 Order name: SARS RAPID; Complete Time: 08:22 sp4 01/06 06:37 Order name: Influenza Screen (a \T\ B); Complete Time: 08:22 sp4 01/06 06:38 Order name: CBC with Diff; Complete Time: 07:08 sp4 01/06 06:38 Order name: CMP; Complete Time: 07:33 sp4 01/06 06:38 Order name: Lipase; Complete Time: 07:33 sp4 01/06 06:38 Order name: Test, Urine; Complete Time: 07:08 sp4 01/06 06:38 Order name: Urinalysis w/ reflexes; Complete Time: 07:08 sp4 01/06 06:38 Order name: IV Saline Lock; Complete Time: 06:53 sp4 01/06 06:38 Order name: Labs collected and sent; Complete Time: 06:53 sp4 Administered Medications: 07:12 Drug: NS 0.9% IV 1000 ml IV at 1 bolus Per protocol; 1000 mL bolus Route: IV; Rate: 1 ll1 bolus; Site: right antecubital; 09:19 Follow up: Response: No adverse reaction; IV Status: Completed infusion; IV Intake: ll1 1000ml 07:12 Drug: Famotidine IVP 20 mg IVP once; dilute with 10 mL 0.9% NaCl; give over 2 minutes ll1 Route: IVP; Site: right antecubital; 09:19 Follow up: Response: No adverse reaction ll1 07:12 Drug: Ondansetron IVP 4 mg IVP once; over 2 minutes Route: IVP; Site: right antecubital;ll1 09:20 Follow up: Response: No adverse reaction ll1 07:12 Drug: Loperamide PO 4 mg PO once Route: PO; ll1 09:19 Follow up: Response: No adverse reaction ll1 Disposition Summary: 01/06/24 08:27 Discharge Ordered Notes: Location: Home ms3 Condition: Stable ms3 Diagnosis - Influenza B ms3 - Anemia, unspecified ms3 - yeast infection ms3 Followup: ms3 - With: Rashi Herman, DO - When: 2 - 3 days - Reason: Recheck today's complaints Discharge Instructions: - Discharge Summary Sheet ll1 - Anemia ms3 - Influenza, Adult ms3 - Vaginal Yeast Infection, Adult ms3 Forms: - Work release form ll1 - Medication Reconciliation Form ms3 - Thank You Letter ms3 - Antibiotic Education ms3 - Prescription Opioid Use ms3 - Patient Portal Instructions ms3 - Leadership Thank You Letter ms3 Prescriptions: - Tamiflu 75 mg Oral capsule - take 1 tablet ORAL route every 12 hours for 5 days; 10 tablet; Refills: 0, ms3 Product Selection Permitted Signatures: Dispatcher [employer] EDMS Dave Julio, RN RN ll1 Tomas Godoy, DO DO ms3 Claudia Boyd RN RN pf1 Chuy Turpin MD MD sp4
[2024-01-07 19:53] VITALS: BP 131/61; TEMP 97.9; O2SAT 100
== END ==
LOC: ER 06:10
DX: J10.1 Influenza due to other identified influenza virus with other respiratory manifestations (principal); D64.9 Anemia, unspecified; B37.9 Candidiasis, unspecified; Z11.52 Encounter for screening for COVID-19
CPT/HCPCS: 85025; 81001; 36415; 81025; 83690; 80053; 87804 ×2; 87811; J2405; J7030

== ENCOUNTER 2025-01-15 10:10 | Emergency (ER) | payer OTHER ==
--- OUTSIDE RECORDS SUMMARY | 2025-01-15 10:17 | XMS REPORT | Continuity of Care Document ---
Author Name Unknown Address [address] [facility] [address] [place] [address] [facility] Address [address] [facility]. [address] [place] [address] Care Team Providers Care Whistle Punk Name Role Phone PCP, PATIENT DOES NOT HAVE A Primary Care Physic ronnie Unavailable SANDY RUIZ Attending Clinician Unavailable SANDY RUZI Attending Clinician Unavailable JEN VIZCARRA Attending Clinician Unavailable JOSE MCKEON Attending Clinician UnavailJen Medina MD Attending Clinician + 2, [facility] Attending Clinician Unavailable Jen Vizcarra MD Attending Clinician + Doctor Unassigned, [place] Attending Clinician U lottie 2, [facility] Attending Clinician Unavailable LINA KEARNS Attending Clinician Unavailable Nurse, [facility] Attending Clinician Unavailable Lina Chan Attending Clinician + LINA GOLDBERG Attending Clinician Unavailable RAMESH GUTIERREZ Attending Clinician UnavailRAMESH Smith Attending Clinician UnavailMariely Adrian Attending Clinician [phone] Siddhartha Alva MD Attending Clinicia n TY SAUNDERS Attending Clinician Unavailable Ty Saunders OD Attending Clinician [phone] VIOLET JONES Attending Clinician Unavailab Violet Vargas MD March Attending Clinician [phone] Leslee Wall MD Attending Clinician [phone] Ubaldo BACON Attending Clinician Unavailable Ubaldo Márquez Attending Clinician [phone] ARCADIO MCCALLUM Attending Clinician Unavail able ARLYN ALDD Attending Clinician Unavailable DONTE SANCHEZ Attending Clinician Unavailable SIOMN ENCARNACION Attending Clinician Unavailable BISMARK GALICIA Attending Clinician Unavailable RUIZ, SANDY CAM Admitting Clinician Unavailable RUIZ, SANDY CAM Admitting Clinician Unavailable SIDDHARTHA ALVA Admitting Clinician U navailable Payers Payer Name Policy Type Policy Number Effective Date Expirati on Date Source [employer] MEDICA[employer] [id number] 2020 00:00:00 [facility] [id number] 00:00:00 Problems Condition Name Condition Details Condition Category Status Onset Date Resolution Date Last Treatment Date Treating Clinician Comments Source URI with cough and congestion URI with cough and congestion Disease Active 9-05 00:00: 00 [facility] Bilateral wrist pain Bilateral wrist pain Disease Active 0 9-05 00:00: 00 [facility] Bilateral hand pain Bilateral hand pain Disease Active 0 9-05 00:00: 00 [facility] Moderate recurrent major depression Moderate recurrent major depression Disease Active 9-05 00:00: 00 [facility] Moderate recurrent major depression Moderate recurrent major depression Disease Active 9-05 00:00: 00 [facility] Presence of 52 mg levonorges trel-relea sing intrauteri ne device (IUD) Presence of 52 mg levonorges trel-relea sing intrauteri ne device (IUD) Disease Active 6-13 00:00: 00 [facility] Morbid obesity with body mass index of 50 or higher Morbid obesity with body mass index of 50 or higher Disease Active 2022-11 2-15 00:00: 00 [facility] Papilledem a of both eyes Papilledem a of both eyes Disease Active 2022-11 2-14 00:00: 00 [facility] COVID-19 virus infection COVID-19 virus infection Disease Active 2022-11 0-26 00:00: 00 [facility] Nasal congestion Nasal congestion Disease Active 2022-11 0-26 00:00: 00 [facility] Panic attack Panic attack Disease Active 2022-11 0-26 00:00: 00 [facility] Visual hallucinat ion Visual hallucinat ion Disease Active 2022-11 0- 00:00: 00 [facility] Moderate persistent asthma without complicati on Moderate persistent asthma without complicati on Disease Active 9 00:00: 00 [facility] Dandruff, adult Dandruff, adult Disease Active 9 00:00: 00 [facility] Essential hypertensi on Essential hypertensi on Disease Active 8 00:00: 00 [facility] Asthma, mild intermitte nt, well-contr olled Asthma, mild intermitte nt, well-contr olled Disease Active 8 00:00: 00 [facility] Anxiety, generalize d Anxiety, generalize d Disease Active 8 00:00: 00 [facility] Agitation Agitation Disease Active 8 00:00: 00 [facility] Acute bacterial conjunctiv itis of left eye Acute bacterial conjunctiv itis of left eye Disease Active 8- 00:00: 00 [facility] Auditory hallucinat ion Auditory hallucinat ion Disease Active 8- 00:00: 00 [facility] MDD (major depressive disorder), recurrent severe, without psychosis MDD (major depressive disorder), recurrent severe, without psychosis Disease Active 8- 00:00: 00 [facility] Other schizoaffe ctive disorders Other schizoaffe ctive disorders Disease Active 8- 00:00: 00 [facility] Status post bilateral salpingect veronica Status post bilateral salpingect veronica Disease Active 2020-0 8-18 00:00: 00 [facility] S/P tubal ligation S/P tubal ligation Disease Active 2019-0 8-18 00:00: 00 [facility] Encounter for vitamin deficiency screening Encounter for vitamin deficiency screening Disease Active 2019-0 7-31 00:00: 00 [facility] History of Webb's palsy History of Webb's palsy Disease Active 3-19 00:00: 00 [facility] Bipolar affective disorder, currently depressed, moderate Bipolar affective disorder, currently depressed, moderate Disease Active 2017-11 00:00: 00 [facility] BMI 50.0-59.9, adult BMI 50.0-59.9, adult Disease Active 2017-11 00:00: 00 [facility] 23 weeks gestation of 23 weeks gestation of Disease Resolve d 3-05 00:00: 00 2024-04-04 00:00:00 2024-04-04 15:56:57 [facility] High-risk , second trimester High-risk , second trimester Disease Resolve d 2017-11 00:00: 00 2024-04-04 00:00:00 2024-04-04 15:56:59 [facility] (spontaneo us vaginal delivery) (spontaneo us vaginal delivery) Disease Resolve d 6- 00:00: 00 2020-06-15 00:00:00 2020-06-15 11:13:45 [facility] Single live Single live Disease Resolve d 0 6-27 00:00: 00 2020-06-15 00:00:00 2020-06-15 11:13:46 [facility] Anemia, Anemia, Disease Resolve d 6-27 00:00: 00 2020-06-15 00:00:00 2020-06-15 11:13:49 [facility] Laceration , obstetrica l, minor Laceration , obstetrica l, minor Disease Resolve d 6-27 00:00: 00 2020-06-15 00:00:00 2020-06-15 11:13:53 [facility] 38 weeks gestation of 38 weeks gestation of Disease Resolve d 2019-0 6-26 00:00: 00 2020-06-15 00:00:00 2020-06-15 11:13:42 [facility] Excessive growth affecting management of in third trimester, single or unspecifie d fetus Excessive growth affecting management of in third trimester, single or unspecifie d fetus Disease Resolve d 2019-0 6-18 00:00: 00 2020-06-15 00:00:00 2020-06-15 11:13:41 [facility] Rh negative state in antepartum period Rh negative state in antepartum period Disease Resolve d 2019-0 4-13 00:00: 00 2020-06-15 00:00:00 2020-06-15 11:13:58 [facility] Insufficie nt care Insufficie nt care Disease Resolve d 2018-0 5-23 00:00: 00 2020-06-15 00:00:00 2020-06-15 11:14:02 [facility] Excessive weight gain during , antepartum Excessive weight gain during , antepartum Disease Resolve d 0 2-14 00:00: 2020-06-15 00:00:00 2020-06-15 11:13:58 [facility] Short interval between pregnancie s affecting , antepartum Short interval between pregnancie s affecting , antepartum Disease Resolve d 2017-11 00:00: 00 2020-06-15 00:00:00 2020-06-15 11:14:18 [facility] Asthma during Asthma during Disease Resolve d 2017-11 00:00: 00 2020-06-15 00:00:00 2020-06-15 11:14:19 [facility] Need for prophylact ic vaccinatio n and inoculatio n against influenza Need for prophylact ic vaccinatio n and inoculatio n against influenza Disease Resolve d 2017-11 00:00: 00 2020-06-15 00:00:00 2020-06-15 11:14:14 [facility] Family history of Down syndrome Family history of Down syndrome Disease Resolve d 2017-11 00:00: 00 2020-06-15 00:00:00 2020-06-15 11:14:14 [facility] Family history of congenital heart defect Family history of congenital heart defect Disease Resolve d 2017-11 00:00: 00 2020-06-15 00:00:00 2020-06-15 11:14:14 [facility] Pre-eclamp дмитрий in third trimester Pre-eclamp дмитрий in third trimester Disease Resolve d 0 5- 00:00: 00 2019-12-22 00:00:00 2019-12-22 13:27:41 [facility] Liveborn , of negro , born in hospital by vaginal delivery Liveborn , of negro , born in hospital by vaginal delivery Disease Resolve d 04-22 00:00: 00 2019-12-22 00:00:00 2019-12-22 13:27:40 [facility] 39 weeks gestation of 39 weeks gestation of Disease Resolve d 04-21 00:00: 00 2019-12-22 00:00:00 2019-12-22 13:27:36 [facility] Left-sided Webb's palsy Left-sided Webb's palsy Disease Resolve d 03-07 00:00: 00 2019-12-22 00:00:00 2019-12-22 13:28:44 [facility] Allergies, Adverse Reactions, Alerts Allergy Name Allergy Type Status Severity Reaction(s) Onset Date Inactive Date Treating Clinician Comments Source NO KNOWN ALLERGIE S Drug Class Active [facility] Family History Family Member Diagnosis Comments Start Date Stop Date Sourc e Natural brother Other - see comments [facility] Natural [facility] Natural father Depression [facility] Natural father [facility] Natural [facility]pert[facility] Natural father Other - see comments [facility] Natural father Psychiatry [facility] Maternal Aunt Ovarian Cancer [facility] Maternal grandfather Colon Cancer [facility] Maternal grandfather Hypertension [facility] Maternal grandmother Arthritis [facility] Maternal grandmother Asthma [facility] Maternal grandmother Diabetes [facility] Maternal grandmother High cholesterol [facility] Maternal Uncle Depression Univ [facility] Maternal Uncle Psychiatry [facility] Natural [facility]thritis [facility] Natural mother Asthma Unive [facility] Natural mother Depression [facility] Natural mother Other - see comments [facility] Natural mother Psychiatry [facility] Paternal grandmother Colon Cancer [facility] Paternal grandmother Hypertension [facility] Paternal grandmother Asthma [facility] Paternal grandmother Diabetes [facility] Natural sister defects U [facility] Natural sister Heart [facility] Natural sister Other - see comments [facility] Social History Social Habit Start Date Stop Date Quantity Comments Source Gender identity [facility] Sexual orientation [facility] Alcoholic beverage intake 2024-08-04 00:00:00 2024-08-04 00:00:00 Current non-drinker of alcohol (finding) [facility] Tobacco use and exposure 2024-04-04 00:00:00 2024-04-04 00:00:00 Smokeless tobacco non-user [facility] Alcohol intake 2024-02-02 00:00:00 2024-02-02 00:00:00 Current non-drinker of alcohol (finding) [facility] History of Social function 2023-07-07 00:00:00 2023-07-07 00:00:00 [facility] History of tobacco use 2014-10-07 00:00:00 Cigarette Smoker [facility] Sex assigned at 1995 00:00:00 1995 00:00:00 [facility] Smoking Status Start Date Stop Date Source Ex-smoker 2024-04-04 00:00:00 2024-04-04 00:00:00 [facility] Medications Ordered Medication Name Filled Medication Name Start Date Stop Date Current Medication? Ordering Clinician Indication Dosage Frequency Signature (SIG) Comments Components Source ergocalcife rol, vitamin d2, 1,250 mcg (50,000 unit) capsule 2023-11 0-14 00:00: 00 Yes [id number] Take 1 capsule by mouth weekly. [facility] calcium carbonate 500 mg calcium (1,250 mg) tablet 2023-11 00:00: 00 Yes [id number] 500mg Take 1 tablet by mouth in the morning. [facility] Arm Brace (WRIST BRACE) Misc 08-04 00:00: 00 Yes [id number] Use as directed [facility] azelastine 137 mcg (0.1 %) nasal spray 08-04 00:00: 00 Yes [id number] 1{spray } Use 1 Crawley in each nostril in the morning and 1 Crawley in the evening. Use in each nostril as directed [facility] bromphenira mine-pseudo ephedrine-D M (BROMFED DM) 2-30-10 mg/5 mL syrup 08-04 00:00: 00 Yes [id number] 10mL Take 10 mL by mouth at bedtime. [facility] cefTRIAXone (ROCEPHIN) injection 500 mg 06-20 14:45: 00 06-20 14:13 :00 No [id number] 500mg 500 mg, Intramuscu lar, ONCE, 1 dose, On Thu06/20/24 at 0945, KENZIE, Reason for Anti-Infec tive: Empiric Therapy for Suspected Infection, Empiric Therapy Site: Other, Other site: pelvic, Duration of therapy: Once (ED) [facility] ibuprofen 600 mg tablet 06-20 00:00: 00 Yes [id number] 600mg Take 1 tablet by mouth every 6 (six) hours as needed for Pain (scale 1-3) or Pain (scale 4-6). [facility] doxycycline hyclate 100 mg tablet 06-20 00:00: 00 07-05 04:59 :00 No [id number] 100mg Take 1 tablet by mouth in the morning and 1 tablet in the evening. Do all this for 14 days. [facility] VENTOLIN HFA 90 mcg/actuati on inhaler 05-30 00:00: 00 Yes [id number] INHALE 2 PUFFS BY MOUTH EVERY 6 HOURS NEEDED FOR WHEEZING FOR SHORTNESS OF BREATH [facility] levonorgest reL (MIRENA) IUD 1 Device 05-12 14:30: 00 05-12 14:37 :00 No [id number] 1{devic e} [facility] semaglutide , weight loss, (WEGOVY) 0.25 mg/0.5 mL PnIj SC injection 05-05 00:00: 00 Yes [id number] .25mg inject 0.25 mg under the skin weekly. [facility] semaglutide , weight loss, (WEGOVY) 1 mg/0.5 mL PnIj SC injection 05-05 00:00: 00 Yes [id number] 1mg inject 1 mg under the skin weekly. [facility] semaglutide , weight loss, (WEGOVY) 1.7 mg/0.75 mL PnIj SC injection 05-05 00:00: 00 Yes [id number] 1.7mg inject 1.7 mg under the skin weekly. [facility] semaglutide , weight loss, (WEGOVY) 2.4 mg/0.75 mL PnIj SC injection 05-05 00:00: 00 Yes [id number] 2.4mg inject 2.4 mg under the skin weekly. [facility] miSOPROStoL 200 mcg tablet 05-04 00:00: 00 Yes [id number] 100 200ug Take 1 tablet by mouth SEE-INSTRU CTIONS. Take one tab the night before and one tab the morning of procedure [facility] miSOPROStoL 200 mcg tablet 04-04 00:00: 00 04-20 00:00 :00 No [id number] 100 200ug Take 1 tablet by mouth SEE-INSTRU CTIONS. Take one tab the night before and one tab the morning of procedure [facility] SERTraline (ZOLOFT) 50 mg tablet 05 00:00: 00 Yes [id number] 50mg Take 1 tablet by mouth in the morning. [facility] lurasidone (LATUDA) 20 mg tablet 02-01 00:00: 00 Yes [id number] 20mg Take 1 tablet by mouth in the morning. Take with food. [facility] lisinopriL- hydrochloro thiazide 10-12.5 mg per tablet 02-01 00:00: 00 Yes [id number] 1{tbl} Take 1 tablet by mouth in the morning. [facility] budesonide- formoteroL (SYMBICORT) 160-4.5 mcg/actuati on inhaler 02-01 00:00: 00 Yes [id number] 2{puff} Inhale 2 Puffs in the morning. [facility] albuterol 90 mcg/actuati on inhaler 02-01 00:00: 00 05-30 00:00 :00 No 2{puff} Inhale 2 Puffs every 6 (six) hours as needed for Wheezing or Shortness of Breath. [facility] topiramate 25 mg tablet 01-28 00:00: 00 Yes [id number] 25mg Take 1 tablet by mouth in the morning and 1 tablet in the evening. [facility] sumatriptan 100 mg tablet 01-28 00:00: 00 Yes [id number] 100mg Take 1 tablet by mouth as needed for Migraine (Max of 2 tablets/da y.). [facility] albuterol 2.5 mg/0.5 mL nebulizer solution 12-11 09:04: 40 12-11 00:00 :00 No 2.5mg Use 0.5 mL as directed every 6 (six) hours as needed for Wheezing. [facility] gadobenate dimeglumine (MULTIHANCE -20 mL) injection 26.04 mL 2022-11 20:00: 00 11-17 20:00 :00 No [id number] 445125 .2mL/kg 26.04 mL (0.2 mL/kg ?130.2 kg), Intravenou s, ONCE, 1 dose, On Thu11/17/23 at 1400, Routine [facility] albuterol 2.5 mg/0.5 mL nebulizer solution 2022-11 18:08: 17 Yes 2.5mg Use 0.5 mL as directed every 6 (six) hours as needed for Wheezing. [facility] lidocaine 1% (PF) (XYLOCAINE) injection 2022-11 18:21: 32 11-16 18:21 :32 No PRN, Starting on Thu11/16/23 at 1221, Until Thu11/16/23 at 1221, Routine, Intra-op [facility] LORazepam (ATIVAN) tablet 2022-11 17:31: 36 11-16 17:31 :36 No PRN, Starting on Thu11/16/23 at 1131, Until Thu11/16/23 at 1131, Routine, Intra-op [facility] LORazepam (ATIVAN) injection 2 mg 2022-11 21:00: 00 11-14 21:42 :00 No 2mg 2 mg, Slow IV Push, ONCE, 1 dose, On 11/14/23 at 1515, KENZIE [facility] lidocaine PF 2% (XYLOCAINE- MPF) injection 10 mL 2022-11 20:45: 00 11-14 20:45 :00 No 10mL 10 mL, Infiltrati on, ONCE, 1 dose, On 11/14/23 at 1445, Routine [facility] gadoteridol (PROHANCE-2 0 mL) injection 26.04 mL 2022-11 19:00: 00 11-14 19:00 :00 No [id number] .2mL/kg 26.04 mL (0.2 mL/kg ?130.2 kg), Intravenou s, ONCE, 1 dose, On 11/14/23 at 1300, Routine [facility] enoxaparin (LOVENOX) injection 40 mg 2022-11 15:00: 00 Yes 40mg 40 mg, Subcutaneo us, DAILY, First dose on Thu11/13/23 at 0900, Until Discontinu ed, Routine [facility] pantoprazol e (PROTONIX) EC tablet 40 mg 2022-11 15:00: 00 Yes 40mg 40 mg, Oral, DAILY, First dose on Thu11/13/23 at 0900, Until Discontinu ed, [facility] ([facility]FT[facility] tablet 25 mg 2022-11 15:00: 00 Yes 25mg 25 mg, Oral, DAILY, First dose on Thu11/13/23 at 0900, Until Discontinu ed, Routine [facility] lurasidone (LATUDA) tablet 20 mg 2022-11 15:00: 00 Yes 20mg 20 mg, Oral, DAILY, First dose on Thu11/13/23 at 0900, Until Discontinu ed, [facility]ine [facility] hydroCHLORO thiazide (ESIDRIX) capsule 12.5 mg 2022-11 15:00: 00 Yes 12.5mg 12.5 mg, Oral, DAILY, First dose on Thu11/13/23 at 0900, Until Discontinu ed, Routine [facility] lisinopriL (PRINIVIL,Z ESTRIL) tablet 10 mg 2022-11 15:00: 00 Yes 10mg 10 mg, Oral, DAILY, First dose on Thu11/13/23 at 0900, Until Discontinu ed, Routine [facility] budesonide- formoteroL (SYMBICORT) 160-4.5 mcg/actuati on inhaler 2 Puff 2022-11 15:00: 00 Yes 2{puff} 2 Puff, Inhalation , DAILY, First dose on Thu11/13/23 at 0900, Until Discontinu ed, Routine [facility] NaCl 0.9% (NS) IV infusion 1,000 mL 2022-11 01:30: 00 Yes 1000mL at 50 mL/hr, IV Infusion, CONTINUOUS , Starting on Thu11/12/23 at 1930, Until Discontinu ed, Routine [facility] acetaminoph en (TYLENOL) tablet 650 mg 2022-11 01:13: 55 Yes 650mg 650 mg, Oral, Q6HPRN, Starting on Thu11/12/23 at 1913, Until Discontinu ed, Routine, Pain (scale 4-6) [facility] docusate (COLACE) capsule 100 mg 2022-11 01:13: 55 Yes 100mg 100 mg, Oral, QDAILYPRN, Starting on Thu11/12/23 at 1912, Until Discontinu ed, Routine, Constipati on [facility] ketoconazol e (NIZORAL) 2 % shampoo 2022-11 01:12: 25 Yes [facility] albuterol (VENTOLIN) inhaler 2 Puff 2022-11 01:12: 01 Yes 2{puff} 2 Puff, Inhalation , Q6HPRN, Starting on Thu11/12/23 at 1911, Until Discontinu ed, Routine, Wheezing, Shortness of Breath [facility] albuterol (PROVENTIL) 2.5 mg /3 mL (0.083 %) nebulizer solution 2.5 mg 2022-11 01:11: 59 Yes 2.5mg 2.5 mg, Inhalation , Q6HPRN, Starting on Thu11/12/23 at 1910, Until Discontinu ed, Routine, Wheezing [facility] albuterol 2.5 mg/0.5 mL nebulizer solution 2022-11 21:27: 43 Yes 2.5mg Use 0.5 mL as directed every 6 (six) hours as needed for Wheezing. [facility] fluticasone propionate 50 mcg/actuati on nasal spray 2022-11 00:00: 00 Yes [id number] 1{spray } Use 1 Crawley in each nostril in the morning. [facility] nirmatrelvi r-ritonavir (PAXLOVID) 300 mg (150 mg x 2)-100 mg tablet 2022-11 00:00: 00 12-11 00:00 :00 No [id number] 3{tbl} Take 3 tablets by mouth in the morning and 3 tablets in the evening. [facility] vitamin C with antonette hips (VITAMIN C) 1,000 mg tablet 2022-11 00:00: 12-11 00:00 :00 No [id number] 1000mg Take 1 tablet by mouth in the morning. [facility] Zinc Gluconate 100 mg Tab 2022-11 00:00: 00 12-11 00:00 :00 No [id number] 1{tbl} Take 1 tablet by mouth in the morning. [facility] calcium carbonate 500 mg calcium (1,250 mg) tablet 2022-11 00:00: 00 12-11 00:00 :00 No [id number] 500mg Take 1 tablet by mouth in the morning. [facility] bromphenira mine-pseudo ephedrine-D M (BROMFED DM) 2-30-10 mg/5 mL syrup 2022-11 00:00: 00 12-11 00:00 :00 No [id number] 10mL Take 10 mL by mouth 4 (four) times daily as needed for Cough. [facility] mometasone 0.1 % lotion 2022-11 00:00: 00 04-04 00:00 :00 No [id number] Apply to area(s) 2 (two) times daily. Avoid face, armpits, and groin. [facility] ketoconazol e 2 % shampoo 2022-11 00:00: 00 04-04 00:00 :00 No [id number] Apply to area(s) once daily as needed for Itching. [facility] triamcinolo ne acetonide 0.1 % cream 2022-11 00:00: 00 12-11 00:00 :00 No [id number] Apply to area(s) 2 (two) times daily. [facility] erythromyci n (ILOTYCIN) 5 mg/gram (0.5 %) ophthalmic ointment 0.5 Inch 2022-11 0 15:45: 00 09-05 15:45 :00 No .5[in_u s] 0.5 Inch, Both Eyes, ONCE, 1 dose, On 09/05/23 at 1045, KENZIE [facility] erythromyci n 5 mg/gram (0.5 %) ophthalmic ointment 2022-11 00:00: 00 12-11 00:00 :00 No [id number] 9104 .5[in_u s] Place 0.5 Inches in both eyes 4 (four) times daily. Continue until you follow up with eye doctor. [facility] selenium sulfide (DANDRUFF SHAMPOO, SELENIUM,) 1 % suspension 08-04 00:00: 00 04-04 00:00 :00 No [id number] Apply 5g topically daily on scalp during shower, rinse off after 5 minutes [facility] Hudson Tar 2 % Sham 08-04 00:00: 00 12-11 00:00 :00 No [id number] Apply 5g topically daily on scalp during shower, rinse off after 5 [id number] [facility] albuterol 2.5 mg/0.5 mL nebulizer solution 07-07 10:28: 01 Yes 2.5mg Use 0.5 mL as directed every 6 (six) hours as needed for Wheezing. [facility] SERTraline (ZOLOFT) 25 mg tablet 07-07 00:00: 00 02-01 00:00 :00 No [id number] 25mg Take 1 tablet by mouth in the morning. [facility] albuterol 90 mcg/actuati on inhaler 07-07 00:00: 02-01 00:00 :00 No [id number] 2{puff} Inhale 2 Puffs every 6 (six) hours as needed for Wheezing or Shortness of Breath. [facility] lurasidone (LATUDA) 20 mg tablet 07-07 00:00: 00 02-01 00:00 :00 No [id number] 20mg Take 1 tablet by mouth in the morning. Take with food. [facility] lisinopriL- hydrochloro thiazide 10-12.5 mg per tablet 07-07 00:00: 00 02-01 00:00 :00 No [id number] 1{tbl} Take 1 tablet by mouth in the morning. [facility] ofloxacin 0.3 % ophthalmic solution 07-07 00:00: 12-11 00:00 :00 No [id number] 1[drp] Place 1 Drop in both eyes 4 (four) times daily. [facility] ciprofloxac in HCl 500 mg tablet 07-07 00:00: 08-04 00:00 :00 No [id number] 500mg Take 1 tablet by mouth every 12 (twelve) hours. [facility] albuterol 2.5 mg/0.5 mL nebulizer solution 07-17 11:38: 24 Yes 1{ampul e} Use 1 Ampule as directed every 6 (six) hours as needed for Wheezing. [facility] ibuprofen 600 mg tablet 07-17 00:00: 07-07 00:00 :00 No [id number] 600mg Take 1 tablet by mouth every 6 (six) hours as needed for Pain (scale 1-3) or Pain (scale 4-6). [facility] fluticasone propionate 50 mcg/actuati on nasal spray 07-05 00:00: 00 09-24 00:00 :00 No 2{spray } Use 2 Sprays in each nostril daily. [facility] albuterol 90 mcg/actuati on inhaler 07-05 00:0007-07 00:00 :00 No [id number] 2{puff} Inhale 2 Puffs every 6 (six) hours as needed for Wheezing or Shortness of Breath. [facility] magnesium oxide 400 mg (241.3 mg magnesium) tablet 07-02 00:00: 00 12-11 00:00 :00 No [id number] 400mg Take 1 tablet by mouth daily. [facility] ferrous sulfate 325 mg (65 mg iron) tablet 05-26 00:00: 04-04 00:00 :00 No [id number] 325mg Take 1 tablet by mouth daily. [facility] ibuprofen 600 mg tablet 6-27 00:00: 07-07 00:00 :00 No [id number] 600mg Take 1 tablet by mouth every 6 (six) hours as needed (Pain). Take with food or milk. [facility] SERTraline (ZOLOFT) 25 mg tablet 5-13 00:00: 00 07-07 00:00 :00 No [id number] 25mg Take 1 tablet by mouth daily. [facility] lurasidone (LATUDA) 20 mg tablet 5-13 00:00: 00 07-07 00:00 :00 No [id number] 20mg Take 1 tablet by mouth daily. Take with food. [facility] PNV 102-iron-fo late 1-dss-dha (VITAFOL FE+, WITH DOCUSATE,) 90 mg iron-1 mg -50 mg-200 mg Cap 19 00:00: 00 Yes [id number] Take 1 TAB-CAP/M2 by mouth daily. [facility] PNV 102-iron-fo late 1-dss-dha (VITAFOL FE+, WITH DOCUSATE,) 90 mg iron-1 mg -50 mg-200 mg Cap 19 00:00: 00 12-11 00:00 :00 No [id number] Take 1 TAB-CAP/M2 by mouth daily. [facility] budesonide- formoterol (SYMBICORT) 160-4.5 mcg/actuati on inhaler 12-15 00:00: 00 02-01 00:00 :00 No [id number] 2{puff} Inhale 2 Puffs daily. [facility] Peak Flow Meter Lynnette 2017-11 00:00: 00 Yes Use as directed [facility] Peak Flow Meter Lynnette 2017-11 00:00: 00 12-11 00:00 :00 No Use as directed [facility] Immunizations Ordered Immunization Name Filled Immunization Name Date Status Comments Source Flu Injectable MDCK Pres-Free (FLUCELVAX) 2024-08-04 00:00:00 Completed Flu Injectable MDCK Pres-Free (FLUCELVAX) 2024-08-04 00:00:00 Completed PPD (TB) 2023-12-15 00:00:00 Completed [facility] PPD (TB) 2023-12-15 00:00:00 Completed [facility] PPD (TB) 2023-12-11 00:00:00 Completed [facility] Influenza Virus Vaccine Quad IM, Preserv and ABX Free 6 MO-64 YRS (FLUCELVAX) 2023-12-11 00:00:00 Completed PPD (TB) 2023-12-11 00:00:00 Completed [facility] Influenza Virus Vaccine Quad IM, Preserv and ABX Free 6 MO-64 YRS (FLUCELVAX) 2023-12-11 00:00:00 Completed Pneumococcal 20 Conjugate, PCV20 (Prevnar 20) 2023-08-04 00:00:00 Completed [facility] Pneumococcal 20 Conjugate, PCV20 (Prevnar 20) 2023-08-04 00:00:00 Completed [facility] Pneumococcal 20 Conjugate, PCV20 (Prevnar 20) 2023-08-04 00:00:00 Completed [facility] Pneumococcal 20 Conjugate, PCV20 (Prevnar 20) 2023-08-04 00:00:00 Completed [facility] Pneumococcal 20 Conjugate, PCV20 (Prevnar 20) 2023-08-04 00:00:00 Completed [facility] Pneumococcal 20 Conjugate, PCV20 (Prevnar 20) 2023-08-04 00:00:00 Completed [facility] Rho (d) Immune Globulin 2020-05-26 00:00:00 Completed [facility] Rho (d) Immune Globulin 2020-05-26 00:00:00 Completed [facility] Rho (d) Immune Globulin 2020-05-26 00:00:00 Completed [facility] Rho (d) Immune Globulin 2020-05-26 00:00:00 Completed [facility] Rho (d) Immune Globulin 2020-05-26 00:00:00 Completed [facility] Rho (d) Immune Globulin 2020-05-26 00:00:00 Completed [facility] Rho (d) Immune Globulin 2020-05-26 00:00:00 Completed [facility] Rho (d) Immune Globulin 2020-05-26 00:00:00 Completed [facility] Rho (d) Immune Globulin 2020-05-26 00:00:00 Completed [facility] Rho (d) Immune Globulin 2020-05-26 00:00:00 Completed [facility] TDAP (ADACEL) VACCINE 2020-03-12 00:00:00 Completed [facility] Rho (d) Immune Globulin 2020-03-12 00:00:00 Completed [facility] TDAP (ADACEL) VACCINE 2020-03-12 00:00:00 Completed [facility] Rho (d) Immune Globulin 2020-03-12 00:00:00 Completed [facility] TDAP (ADACEL) VACCINE 2020-03-12 00:00:00 Completed Rho (d) Immune Globulin 2020-03-12 00:00:00 Completed [facility] TDAP (ADACEL) VACCINE 2020-03-12 00:00:00 Completed Rho (d) Immune Globulin 2020-03-12 00:00:00 Completed [facility] TDAP (ADACEL) VACCINE 2020-03-12 00:00:00 Completed [facility] Rho (d) Immune Globulin 2020-03-12 00:00:00 Completed [facility] TDAP (ADACEL) VACCINE 2020-03-12 00:00:00 Completed [facility] Rho (d) Immune Globulin 2020-03-12 00:00:00 Completed [facility] TDAP (ADACEL) VACCINE 2020-03-12 00:00:00 Completed [facility] Rho (d) Immune Globulin 2020-03-12 00:00:00 Completed [facility] TDAP (ADACEL) VACCINE 2020-03-12 00:00:00 Completed [facility] Rho (d) Immune Globulin 2020-03-12 00:00:00 Completed [facility] TDAP (ADACEL) VACCINE 2020-03-12 00:00:00 Completed [facility] Rho (d) Immune Globulin 2020-03-12 00:00:00 Completed [facility] TDAP (ADACEL) VACCINE 2020-03-12 00:00:00 Completed [facility] Rho (d) Immune Globulin 2020-03-12 00:00:00 Completed [facility] Influenza Virus Vaccine Quad .5 mL IM 6+ MO 2020-02-16 00:00:00 Completed [facility] Influenza Virus Vaccine Quad .5 mL IM 6+ MO 2020-02-16 00:00:00 Completed [facility] Influenza Virus Vaccine Quad .5 mL IM 6+ MO (FLUZONE/FLULAVAL/F LUARIX) 2020-02-16 00:00:00 Completed [facility] Influenza Virus Vaccine Quad .5 mL IM 6+ MO (FLUZONE/FLULAVAL/F LUARIX) 2020-02-16 00:00:00 Completed [facility] Influenza Virus Vaccine Quad .5 mL IM 6+ MO 2020-02-16 00:00:00 Completed [facility] Influenza Virus Vaccine Quad .5 mL IM 6+ MO 2020-02-16 00:00:00 Completed [facility] Influenza Virus Vaccine Quad .5 mL IM 6+ MO (FLUZONE/FLULAVAL/F LUARIX) 2020-02-16 00:00:00 Completed [facility] Influenza Virus Vaccine Quad .5 mL IM 6+ MO (FLUZONE/FLULAVAL/F LUARIX) 2020-02-16 00:00:00 Completed [facility] Influenza Virus Vaccine Quad .5 mL IM 6+ MO (FLUZONE/FLULAVAL/F LUARIX) 2020-02-16 00:00:00 Completed [facility] Influenza Virus Vaccine Quad .5 mL IM 6+ MO (FLUZONE/FLULAVAL/F LUARIX) 2020-02-16 00:00:00 Completed [facility] Rho (d) Immune Globulin 2019-04-23 00:00:00 Completed [facility] Rho (d) Immune Globulin 2019-04-23 00:00:00 Completed [facility] Rho (d) Immune Globulin 2019-04-23 00:00:00 Completed [facility] Rho (d) Immune Globulin 2019-04-23 00:00:00 Completed [facility] Rho (d) Immune Globulin 2019-04-23 00:00:00 Completed [facility] Rho (d) Immune Globulin 2019-04-23 00:00:00 Completed [facility] Rho (d) Immune Globulin 2019-04-23 00:00:00 Completed [facility] Rho (d) Immune Globulin 2019-04-23 00:00:00 Completed [facility] Rho (d) Immune Globulin 2019-04-23 00:00:00 Completed [facility] Rho (d) Immune Globulin 2019-04-23 00:00:00 Completed [facility] Rho (d) Immune Globulin 2019-04-21 00:00:00 Completed [facility] Rho (d) Immune Globulin 2019-04-21 00:00:00 Completed [facility] Rho (d) Immune Globulin 2019-04-21 00:00:00 Completed Rho (d) Immune Globulin 2019-04-21 00:00:00 Completed Rho (d) Immune Globulin 2019-04-21 00:00:00 Completed [facility] Rho (d) Immune Globulin 2019-04-21 00:00:00 Completed [facility] Rho (d) Immune Globulin 2019-04-21 00:00:00 Completed [facility] Rho (d) Immune Globulin 2019-04-21 00:00:00 Completed [facility] Rho (d) Immune Globulin 2019-04-21 00:00:00 Completed [facility] Rho (d) Immune Globulin 2019-04-21 00:00:00 Completed [facility] Influenza Virus Vaccine Quad .5 mL IM 6+ MO (FLUZONE/FLULAVAL/F LUARIX) 2018-10-07 00:00:00 Completed [facility] Influenza Virus Vaccine Quad .5 mL IM 6+ MO 2018-10-07 00:00:00 Completed [facility] Influenza Virus Vaccine Quad .5 mL IM 6+ MO 2018-10-07 00:00:00 Completed [facility] Influenza Virus Vaccine Quad .5 mL IM 6+ MO (FLUZONE/FLULAVAL/F LUARIX) 2018-10-07 00:00:00 Completed [facility] Influenza Virus Vaccine Quad .5 mL IM 6+ MO 2018-10-07 00:00:00 Completed [facility] Influenza Virus Vaccine Quad .5 mL IM 6+ MO 2018-10-07 00:00:00 Completed [facility] Influenza Virus Vaccine Quad .5 mL IM 6+ MO (FLUZONE/FLULAVAL/F LUARIX) 2018-10-07 00:00:00 Completed [facility] Influenza Virus Vaccine Quad .5 mL IM 6+ MO (FLUZONE/FLULAVAL/F LUARIX) 2018-10-07 00:00:00 Completed [facility] Influenza Virus Vaccine Quad .5 mL IM 6+ MO (FLUZONE/FLULAVAL/F LUARIX) 2018-10-07 00:00:00 Completed [facility] Influenza Virus Vaccine Quad .5 mL IM 6+ MO (FLUZONE/FLULAVAL/F LUARIX) 2018-10-07 00:00:00 Completed [facility] TDAP 2016-10-22 00:00:00 Completed [facility] TDAP 2016-10-22 00:00:00 Completed [facility] TDAP 2016-10-22 00:00:00 Completed [facility] TDAP 2016-10-22 00:00:00 Completed [facility] TDAP 2016-10-22 00:00:00 Completed [facility] TDAP 2016-10-22 00:00:00 Completed [facility] TDAP 2016-10-22 00:00:00 Completed [facility] TDAP 2016-10-22 00:00:00 Completed [facility] TDAP 2016-10-22 00:00:00 Completed [facility] TDAP 2016-10-22 00:00:00 Completed [facility] Pneumococcal 20 Conjugate, PCV20 (Prevnar 20) Unknown Completed [facility] Influenza Virus Vaccine Quad .5 mL IM 6+ MO (FLUZONE/FLULAVAL/F LUARIX) Unknown Completed [facility] Rho (d) Immune Globulin Unknown Completed [facility] TDAP Unknown Completed [facility] Rho (d) Immune Globulin Unknown Completed [facility] Pneumococcal 20 Conjugate, PCV20 (Prevnar 20) Unknown Completed [facility] Influenza Virus Vaccine Quad .5 mL IM 6+ MO (FLUZONE/FLULAVAL/F LUARIX) Unknown Completed [facility] Rho (d) Immune Globulin Unknown Completed [facility] TDAP Unknown Completed [facility] Rho (d) Immune Globulin Unknown Completed [facility] Influenza Virus Vaccine Quad .5 mL IM 6+ MO (FLUZONE/FLULAVAL/F LUARIX) Unknown Completed [facility] Rho (d) Immune Globulin Unknown Completed [facility] TDAP Unknown Completed [facility] Rho (d) Immune Globulin Unknown Completed [facility] Pneumococcal 20 Conjugate, PCV20 (Prevnar 20) Unknown Completed [facility] Rho (d) Immune Globulin Unknown Completed [facility] Rho (d) Immune Globulin Unknown Completed [facility] Pneumococcal 20 Conjugate, PCV20 (Prevnar 20) Unknown Completed [facility] PPD (TB) Unknown Completed [facility] Influenza Virus Vaccine Quad IM, Preserv and ABX Free 6 MO-64 YRS (FLUCELVAX) Unknown Completed [facility] Influenza Virus Vaccine Quad .5 mL IM 6+ MO (FLUZONE/FLULAVAL/F LUARIX) Unknown Completed [facility] Rho (d) Immune Globulin Unknown Completed [facility] TDAP Unknown Completed [facility] Rho (d) Immune Globulin Unknown Completed [facility] Pneumococcal 20 Conjugate, PCV20 (Prevnar 20) Unknown Completed [facility] PPD (TB) Unknown Completed [facility] Influenza Virus Vaccine Quad IM, Preserv and ABX Free 6 MO-64 YRS (FLUCELVAX) Unknown Completed [facility] Influenza Virus Vaccine Quad .5 mL IM 6+ MO (FLUZONE/FLULAVAL/F LUARIX) Unknown Completed [facility] Rho (d) Immune Globulin Unknown Completed [facility] TDAP Unknown Completed [facility] Rho (d) Immune Globulin Unknown Completed [facility] Influenza Virus Vaccine Quad .5 mL IM 6+ MO (FLUZONE/FLULAVAL/F LUARIX) Unknown Completed [facility] Rho (d) Immune Globulin Unknown Completed [facility] TDAP Unknown Completed [facility] Rho (d) Immune Globulin Unknown Completed [facility] Pneumococcal 20 Conjugate, PCV20 (Prevnar 20) Unknown Completed [facility] PPD (TB) Unknown Completed [facility] Influenza Virus Vaccine Quad IM, Preserv and ABX Free 6 MO-64 YRS (FLUCELVAX) Unknown Completed [facility] PPD (TB) Unknown Completed [facility] Influenza Virus Vaccine Quad .5 mL IM 6+ MO (FLUZONE/FLULAVAL/F LUARIX) Unknown Completed [facility] Rho (d) Immune Globulin Unknown Completed [facility] TDAP Unknown Completed [facility] Rho (d) Immune Globulin Unknown Completed [facility] Pneumococcal 20 Conjugate, PCV20 (Prevnar 20) Unknown Completed [facility] PPD (TB) Unknown Completed [facility] Influenza Virus Vaccine Quad IM, Preserv and ABX Free 6 MO-64 YRS (FLUCELVAX) Unknown Completed [facility] PPD (TB) Unknown Completed [facility] Pneumococcal 20 Conjugate, PCV20 (Prevnar 20) Unknown Completed [facility] PPD (TB) Unknown Completed [facility] Influenza Virus Vaccine Quad IM, Preserv and ABX Free 6 MO-64 YRS (FLUCELVAX) Unknown Completed [facility] PPD (TB) Unknown Completed [facility] Influenza Virus Vaccine Quad .5 mL IM 6+ MO (FLUZONE/FLULAVAL/F LUARIX) Unknown Completed [facility] Rho (d) Immune Globulin Unknown Completed [facility] TDAP Unknown Completed [facility] Rho (d) Immune Globulin Unknown Completed [facility] Pneumococcal 20 Conjugate, PCV20 (Prevnar 20) Unknown Completed [facility] PPD (TB) Unknown Completed [facility] Influenza Virus Vaccine Quad IM, Preserv and ABX Free 6 MO-64 YRS (FLUCELVAX) Unknown Completed [facility] PPD (TB) Unknown Completed [facility] Influenza Virus Vaccine Quad .5 mL IM 6+ MO (FLUZONE/FLULAVAL/F LUARIX) Unknown Completed [facility] Rho (d) Immune Globulin Unknown Completed [facility] TDAP Unknown Completed [facility] Rho (d) Immune Globulin Unknown Completed [facility] Pneumococcal 20 Conjugate, PCV20 (Prevnar 20) Unknown Completed [facility] PPD (TB) Unknown Completed [facility] Influenza Virus Vaccine Quad IM, Preserv and ABX Free 6 MO-64 YRS (FLUCELVAX) Unknown Completed [facility] PPD (TB) Unknown Completed [facility] Influenza Virus Vaccine Quad .5 mL IM 6+ MO (FLUZONE/FLULAVAL/F LUARIX) Unknown Completed [facility] Rho (d) Immune Globulin Unknown Completed [facility] TDAP Unknown Completed [facility] Rho (d) Immune Globulin Unknown Completed [facility] Pneumococcal 20 Conjugate, PCV20 (Prevnar 20) Unknown Completed [facility] PPD (TB) Unknown Completed [facility] Influenza Virus Vaccine Quad IM, Preserv and ABX Free 6 MO-64 YRS (FLUCELVAX) Unknown Completed [facility] PPD (TB) Unknown Completed [facility] Influenza Virus Vaccine Quad .5 mL IM 6+ MO (FLUZONE/FLULAVAL/F LUARIX) Unknown Completed [facility] Rho (d) Immune Globulin Unknown Completed [facility] TDAP Unknown Completed [facility] Rho (d) Immune Globulin Unknown Completed [facility] Influenza Virus Vaccine Quad .5 mL IM 6+ MO (FLUZONE/FLULAVAL/F LUARIX) Unknown Completed [facility] Rho (d) Immune Globulin Unknown Completed [facility] TDAP Unknown Completed [facility] Rho (d) Immune Globulin Unknown Completed [facility] Pneumococcal 20 Conjugate, PCV20 (Prevnar 20) Unknown Completed [facility] PPD (TB) Unknown Completed [facility] Influenza Virus Vaccine Quad IM, Preserv and ABX Free 6 MO-64 YRS (FLUCELVAX) Unknown Completed [facility] PPD (TB) Unknown Completed [facility] Influenza Virus Vaccine Quad .5 mL IM 6+ MO (FLUZONE/FLULAVAL/F LUARIX) Unknown Completed [facility] Rho (d) Immune Globulin Unknown Completed [facility] TDAP Unknown Completed [facility] Rho (d) Immune Globulin Unknown Completed [facility] Pneumococcal 20 Conjugate, PCV20 (Prevnar 20) Unknown Completed [facility] PPD (TB) Unknown Completed [facility] Influenza Virus Vaccine Quad IM, Preserv and ABX Free 6 MO-64 YRS (FLUCELVAX) Unknown Completed [facility] PPD (TB) Unknown Completed [facility] Pneumococcal 20 Conjugate, PCV20 (Prevnar 20) Unknown Completed [facility] PPD (TB) Unknown Completed [facility] Influenza Virus Vaccine Quad IM, Preserv and ABX Free 6 MO-64 YRS (FLUCELVAX) Unknown Completed [facility] PPD (TB) Unknown Completed [facility] Influenza Virus Vaccine Quad .5 mL IM 6+ MO (FLUZONE/FLULAVAL/F LUARIX) Unknown Completed [facility] Rho (d) Immune Globulin Unknown Completed [facility] TDAP Unknown Completed [facility] Rho (d) Immune Globulin Unknown Completed [facility] Pneumococcal 20 Conjugate, PCV20 (Prevnar 20) Unknown Completed [facility] PPD (TB) Unknown Completed [facility] Influenza Virus Vaccine Quad IM, Preserv and ABX Free 6 MO-64 YRS (FLUCELVAX) Unknown Completed [facility] PPD (TB) Unknown Completed [facility] Influenza Virus Vaccine Quad .5 mL IM 6+ MO (FLUZONE/FLULAVAL/F LUARIX) Unknown Completed [facility] Rho (d) Immune Globulin Unknown Completed [facility] TDAP Unknown Completed [facility] Rho (d) Immune Globulin Unknown Completed [facility] Influenza Virus Vaccine Quad .5 mL IM 6+ MO (FLUZONE/FLULAVAL/F LUARIX) Unknown Completed [facility] Rho (d) Immune Globulin Unknown Completed [facility] TDAP Unknown Completed [facility] Rho (d) Immune Globulin Unknown Completed [facility] Pneumococcal 20 Conjugate, PCV20 (Prevnar 20) Unknown Completed [facility] PPD (TB) Unknown Completed [facility] Influenza Virus Vaccine Quad IM, Preserv and ABX Free 6 MO-64 YRS (FLUCELVAX) Unknown Completed [facility] PPD (TB) Unknown Completed [facility] Pneumococcal 20 Conjugate, PCV20 (Prevnar 20) Unknown Completed [facility] PPD (TB) Unknown Completed [facility] Influenza Virus Vaccine Quad IM, Preserv and ABX Free 6 MO-64 YRS (FLUCELVAX) Unknown Completed [facility] PPD (TB) Unknown Completed [facility] Influenza Virus Vaccine Quad .5 mL IM 6+ MO (FLUZONE/FLULAVAL/F LUARIX) Unknown Completed [facility] Rho (d) Immune Globulin Unknown Completed [facility] TDAP Unknown Completed [facility] Rho (d) Immune Globulin Unknown Completed [facility] Pneumococcal 20 Conjugate, PCV20 (Prevnar 20) Unknown Completed [facility] PPD (TB) Unknown Completed [facility] Influenza Virus Vaccine Quad IM, Preserv and ABX Free 6 MO-64 YRS (FLUCELVAX) Unknown Completed [facility] PPD (TB) Unknown Completed [facility] Influenza Virus Vaccine Quad .5 mL IM 6+ MO (FLUZONE/FLULAVAL/F LUARIX) Unknown Completed [facility] Rho (d) Immune Globulin Unknown Completed [facility] TDAP Unknown Completed [facility] Rho (d) Immune Globulin Unknown Completed [facility] Influenza Virus Vaccine Quad .5 mL IM 6+ MO (FLUZONE/FLULAVAL/F LUARIX) Unknown Completed [facility] Rho (d) Immune Globulin Unknown Completed [facility] TDAP Unknown Completed [facility] Rho (d) Immune Globulin Unknown Completed [facility] Pneumococcal 20 Conjugate, PCV20 (Prevnar 20) Unknown Completed [facility] PPD (TB) Unknown Completed [facility] Influenza Virus Vaccine Quad IM, Preserv and ABX Free 6 MO-64 YRS (FLUCELVAX) Unknown Completed [facility] PPD (TB) Unknown Completed [facility] Influenza Virus Vaccine Quad .5 mL IM 6+ MO (FLUZONE/FLULAVAL/F LUARIX) Unknown Completed [facility] Rho (d) Immune Globulin Unknown Completed [facility] TDAP Unknown Completed [facility] Rho (d) Immune Globulin Unknown Completed [facility] Pneumococcal 20 Conjugate, PCV20 (Prevnar 20) Unknown Completed [facility] PPD (TB) Unknown Completed [facility] Influenza Virus Vaccine Quad IM, Preserv and ABX Free 6 MO-64 YRS (FLUCELVAX) Unknown Completed [facility] PPD (TB) Unknown Completed [facility] Influenza Virus Vaccine Quad .5 mL IM 6+ MO (FLUZONE/FLULAVAL/F LUARIX) Unknown Completed [facility] Rho (d) Immune Globulin Unknown Completed [facility] TDAP Unknown Completed [facility] Rho (d) Immune Globulin Unknown Completed [facility] Pneumococcal 20 Conjugate, PCV20 (Prevnar 20) Unknown Completed [facility] PPD (TB) Unknown Completed [facility] Influenza Virus Vaccine Quad IM, Preserv and ABX Free 6 MO-64 YRS (FLUCELVAX) Unknown Completed [facility] PPD (TB) Unknown Completed [facility] Influenza Virus Vaccine Quad .5 mL IM 6+ MO (FLUZONE/FLULAVAL/F LUARIX) Unknown Completed [facility] Rho (d) Immune Globulin Unknown Completed [facility] TDAP Unknown Completed [facility] Rho (d) Immune Globulin Unknown Completed [facility] Pneumococcal 20 Conjugate, PCV20 (Prevnar 20) Unknown Completed [facility] PPD (TB) Unknown Completed [facility] Influenza Virus Vaccine Quad IM, Preserv and ABX Free 6 MO-64 YRS (FLUCELVAX) Unknown Completed [facility] PPD (TB) Unknown Completed [facility] Influenza Virus Vaccine Quad .5 mL IM 6+ MO (FLUZONE/FLULAVAL/F LUARIX) Unknown Completed [facility] Rho (d) Immune Globulin Unknown Completed [facility] TDAP Unknown Completed [facility] Pneumococcal 20 Conjugate, PCV20 (Prevnar 20) Unknown Completed [facility] PPD (TB) Unknown Completed [facility] Influenza Virus Vaccine Quad IM, Preserv and ABX Free 6 MO-64 YRS (FLUCELVAX) Unknown Completed [facility] PPD (TB) Unknown Completed [facility] Influenza Virus Vaccine Quad .5 mL IM 6+ MO (FLUZONE/FLULAVAL/F LUARIX) Unknown Completed [facility] Rho (d) Immune Globulin Unknown Completed [facility] TDAP Unknown Completed [facility] Pneumococcal 20 Conjugate, PCV20 (Prevnar 20) Unknown Completed [facility] PPD (TB) Unknown Completed [facility] Influenza Virus Vaccine Quad IM, Preserv and ABX Free 6 MO-64 YRS (FLUCELVAX) Unknown Completed [facility] PPD (TB) Unknown Completed [facility] Flu Injectable MDCK Pres-Free (FLUCELVAX) Unknown Completed [facility] Influenza Virus Vaccine Quad .5 mL IM 6+ MO (FLUZONE/FLULAVAL/F LUARIX) Unknown Completed [facility] Rho (d) Immune Globulin Unknown Completed [facility] TDAP Unknown Completed [facility] Rho (d) Immune Globulin Unknown Completed [facility] Pneumococcal 20 Conjugate, PCV20 (Prevnar 20) Unknown Completed [facility] Influenza Virus Vaccine Quad .5 mL IM 6+ MO (FLUZONE/FLULAVAL/F LUARIX) Unknown Completed [facility] Rho (d) Immune Globulin Unknown Completed [facility] TDAP Unknown Completed [facility] Rho (d) Immune Globulin Unknown Completed [facility] Pneumococcal 20 Conjugate, PCV20 (Prevnar 20) Unknown Completed [facility] Influenza Virus Vaccine Quad .5 mL IM 6+ MO (FLUZONE/FLULAVAL/F LUARIX) Unknown Completed [facility] Rho (d) Immune Globulin Unknown Completed [facility] TDAP Unknown Completed [facility] Rho (d) Immune Globulin Unknown Completed [facility] Pneumococcal 20 Conjugate, PCV20 (Prevnar 20) Unknown Completed [facility] Influenza Virus Vaccine Quad .5 mL IM 6+ MO (FLUZONE/FLULAVAL/F LUARIX) Unknown Completed [facility] Rho (d) Immune Globulin Unknown Completed [facility] TDAP Unknown Completed [facility] Rho (d) Immune Globulin Unknown Completed [facility] Pneumococcal 20 Conjugate, PCV20 (Prevnar 20) Unknown Completed [facility] Influenza Virus Vaccine Quad .5 mL IM 6+ MO (FLUZONE/FLULAVAL/F LUARIX) Unknown Completed [facility] Rho (d) Immune Globulin Unknown Completed [facility] TDAP Unknown Completed [facility] Rho (d) Immune Globulin Unknown Completed [facility] Pneumococcal 20 Conjugate, PCV20 (Prevnar 20) Unknown Completed [facility] Influenza Virus Vaccine Quad .5 mL IM 6+ MO (FLUZONE/FLULAVAL/F LUARIX) Unknown Completed [facility] Rho (d) Immune Globulin Unknown Completed [facility] TDAP Unknown Completed [facility] Rho (d) Immune Globulin Unknown Completed [facility] Pneumococcal 20 Conjugate, PCV20 (Prevnar 20) Unknown Completed [facility] Influenza Virus Vaccine Quad .5 mL IM 6+ MO (FLUZONE/FLULAVAL/F LUARIX) Unknown Completed [facility] Rho (d) Immune Globulin Unknown Completed [facility] TDAP Unknown Completed [facility] Rho (d) Immune Globulin Unknown Completed [facility] Pneumococcal 20 Conjugate, PCV20 (Prevnar 20) Unknown Completed [facility] Vital Signs Vital Name Observation Time Observation Value Comments Nani romero Systolic blood pressure 2024-08-04 14:41:00 119 [facility] Di[facility] 2024-08-04 14:41:00 76 mm[facility]Hg[facility] Heart rate 2024-08-04 14:41:00 76 /min [facility] Body temperature 2024-08-04 14:41:00 36.28 Stephanie [facility] Body height 2024-08-04 14:41:00 157.5 cm [facility] Body weight 2024-08-04 14:41:00 138.347 kg [facility] BMI 2024-08-04 14:41:00 55.79 kg/m2 [facility] Oxygen saturation in Arterial blood by Pulse oximetry 2024-08-04 14:41:00 100 /min [facility] Systolic blood pressure 2024-06-20 13:40:00 135 mm[Hg] [facility] Diastolic blood pressure 2024-06-20 13:40:00 77 mm[Hg] [facility] Heart rate 2024-06-20 13:40:00 75 /min [facility] Respiratory rate 2024-06-20 13:40:00 16 /min [facility] Body height 2024-06-20 13:40:00 157.5 cm [facility] Body weight 2024-06-20 13:40:00 136.079 kg [facility] BMI 2024-06-20 13:40:00 54.87 kg/m2 [facility] Systolic blood pressure 2024-05-12 13:46:00 114 mm[Hg] [facility] Diastolic blood pressure 2024-05-12 13:46:00 75 mm[Hg] [facility] Heart rate 2024-05-12 13:46:00 69 /min [facility] Body height 2024-05-12 13:46:00 157.5 cm [facility] Body weight 2024-05-12 13:46:00 134.265 kg [facility] BMI 2024-05-12 13:46:00 54.14 kg/m2 [facility] Systolic blood pressure 2024-05-04 20:04:00 108 mm[Hg] [facility] Diastolic blood pressure 2024-05-04 20:04:00 63 mm[Hg] [facility] Heart rate 2024-05-04 20:04:00 67 /min [facility] Body temperature 2024-05-04 20:04:00 36.72 Stephanie [facility] Body height 2024-05-04 20:04:00 157.5 cm [facility] Body weight 2024-05-04 20:04:00 134.355 kg Univ [facility] BMI 2024-05-04 20:04:00 54.18 kg/m2 Univ [facility] Systolic blood pressure 2024-04-20 16:01:00 121 mm[Hg] [facility] Diastolic blood pressure 2024-04-20 16:01:00 74 mm[Hg] [facility] Heart rate 2024-04-20 16:01:00 70 /min [facility] Body temperature 2024-04-20 16:01:00 36.33 Stephanie [facility] Body height 2024-04-20 16:01:00 157.5 cm [facility] Body weight 2024-04-20 16:01:00 133.811 kg Univ [facility] BMI 2024-04-20 16:01:00 53.96 kg/m2 Univ [facility] Systolic blood pressure 2024-04-04 20:10:00 103 mm[Hg] [facility] Diastolic blood pressure 2024-04-04 20:10:00 64 mm[Hg] [facility] Heart [facility] 2024-04-04 20:10:00 76 /min [facility] 2024-04-04 20:10:00 157.5 cm [facility] Body weight 2024-04-04 20:10:00 133.811 kg [facility] BMI 2024-04-04 20:10:00 53.96 kg/m2 [facility] Systolic blood pressure 2024-02-02 15:10:00 128 mm[Hg] [facility] Diastolic blood pressure 2024-02-02 15:10:00 85 mm[Hg] [facility] Heart rate 2024-02-02 15:09:00 75 /min [facility] Respiratory rate 2024-02-02 15:09:00 18 /min [facility] Body height 2024-02-02 15:09:00 157.5 cm [facility] Body weight 2024-02-02 15:09:00 130.228 kg [facility] BMI 2024-02-02 15:09:00 52.51 kg/m2 [facility] Oxygen saturation in Arterial blood by Pulse oximetry 2024-02-02 15:09:00 100 /min [facility] Systolic blood pressure 2024-01-29 17:08:00 109 mm[Hg[facility] Diastolic blood pressure 2024-01-29 17:08:00 77 mm[Hg[facility] Heart rate 2024-01-29 17:08:00 68 /min [facility] Body temperature 2024-01-29 17:08:00 36.5 Stephanie [facility] Respiratory rate 2024-01-29 17:08:00 19 /min [facility] Body height 2024-01-29 17:08:00 157.5 cm [facility] Body weight 2024-01-29 17:08:00 130.591 kg [facility] BMI 2024-01-29 17:08:00 52.66 kg/m2 [facility] Oxygen saturation in Arterial blood by Pulse oximetry 2024-01-29 17:08:00 99 /min [facility] Systolic blood pressure 2023-12-15 16:55:00 117 mm[Hg] [facility] Diastolic blood pressure 2023-12-15 16:55:00 81 mm[Hg] [facility] Heart rate 2023-12-15 16:54:00 62 /min [facility] Body temperature 2023-12-15 16:54:00 36.11 Stephanie [facility] Respiratory rate 2023-12-15 16:54:00 17 /min [facility] Body height 2023-12-15 16:54:00 157.5 cm [facility] Body weight 2023-12-15 16:54:00 128.867 kg [facility] BMI 2023-12-15 16:54:00 51.96 kg/m2 [facility] Oxygen saturation in Arterial blood by Pulse oximetry 2023-12-15 16:54:00 100 /min [facility] Systolic blood pressure 2023-12-11 14:57:00 105 mm[Hg] [facility] Diastolic blood pressure 2023-12-11 14:57:00 63 mm[Hg] [facility] Heart rate 2023-12-11 14:57:00 70 /min [facility] Body height 2023-12-11 14:57:00 152.4 cm [facility] Body weight 2023-12-11 14:57:00 129.139 kg [facility] BMI 2023-12-11 14:57:00 55.60 kg/m2 [facility] Systolic blood pressure 2023-11-17 21:59:00 132 mm[Hg] [facility] Diastolic blood pressure 2023-11-17 21:59:00 77 mm[Hg] [facility] Heart rate 2023-11-17 21:59:00 74 /min [facility] Body temperature 2023-11-17 21:59:00 36.72 Stephanie [facility] Respiratory rate 2023-11-17 21:59:00 20 /min [facility] Oxygen saturation in Arterial blood by Pulse oximetry 2023-11-17 21:59:00 96 /min [facility] Body height 2023-11-16 16:57:00 152.4 cm [facility] 2023-11-16 16:57:00 130.182 kg [facility] BMI 2023-11-16 16:57:00 56.05 kg/m2 Univ [facility] Systolic blood pressure 2023-09-24 14:57:00 124 mm[Hg[facility] Diastolic blood pressure 2023-09-24 14:57:00 85 mm[Hg] [facility] Heart rate 2023-09-24 14:57:00 82 /min [facility] Body temperature 2023-09-24 14:57:00 36.44 Stephanie [facility] Respiratory rate 2023-09-24 14:57:00 16 /min [facility] Body height 2023-09-24 14:57:00 154.9 cm Univ [facility] Body weight 2023-09-24 14:57:00 127.37 kg [facility] BMI 2023-09-24 14:57:00 53.06 kg/m2 [facility] Oxygen saturation in Arterial blood by Pulse oximetry 2023-09-24 14:57:00 99 /min [facility] Body height 2023-09-18 15:29:00 154.9 cm [facility] Systolic blood pressure 2023-09-05 15:13:00 110 mm[Hg[facility] Diastolic blood pressure 2023-09-05 15:13:00 56 mm[Hg] [facility] Heart rate 2023-09-05 15:13:00 66 /min [facility] Body temperature 2023-09-05 15:13:00 36.72 Stephanie [facility] Respiratory rate 2023-09-05 15:13:00 18 /min [facility] Body height 2023-09-05 15:13:00 154.9 cm Univ [facility] Body weight 2023-09-05 15:13:00 127.007 kg [facility] BMI 2023-09-05 15:13:00 52.91 kg/m2 [facility] Oxygen saturation in Arterial blood by Pulse oximetry 2023-09-05 15:13:00 100 /min [facility] Systolic blood pressure 2023-08-04 15:27:00 114 mm[Hg[facility] Diastolic blood pressure 2023-08-04 15:27:00 70 mm[Hg] [facility] Heart rate 2023-08-04 15:27:00 67 /min [facility] Body temperature 2023-08-04 15:27:00 35.61 Stephanie [facility] Body height 2023-08-04 15:27:00 154.9 cm Univ [facility] Body weight 2023-08-04 15:27:00 127.461 kg [facility] BMI 2023-08-04 15:27:00 53.09 kg/m2 [facility] O[facility] saturation in Arterial blood by Pulse oximetry 2023-08-04 15:27:00 99 /min [facility] Systolic blood pressure 2023-07-07 15:31:00 128 mm[Hg[facility] Diastolic blood pressure 2023-07-07 15:31:00 88 mm[Hg] [facility] Heart rate 2023-07-07 15:30:00 75 /min [facility] Body temperature 2023-07-07 15:30:00 36.67 Stephanie [facility] Body height 2023-07-07 15:30:00 154.9 cm Univ [facility] Body weight 2023-07-07 15:30:00 127.37 kg Univ [facility] BMI 2023-07-07 15:30:00 53.06 kg/m2 Univ [facility] Oxygen saturation in Arterial blood by Pulse oximetry 2023-07-07 15:30:00 98 /min [facility] Systolic blood pressure 2023-11-17 21:59:00 132 mm[Hg[facility] Diastolic blood pressure 2023-11-17 21:59:00 77 mm[Hg] [facility] Heart rate 2023-11-17 21:59:00 74 /min [facility] Body temperature 2023-11-17 21:59:00 36.72 Stephanie [facility] Respiratory rate 2023-11-17 21:59:00 20 /min [facility] Oxygen saturation in Arterial blood by Pulse oximetry 2023-11-17 21:59:00 96 /min [facility] Body height 2023-11-16 16:57:00 152.4 cm [facility] Body weight 2023-11-16 16:57:00 130.182 kg [facility] BMI 2023-11-16 16:57:00 56.05 kg/m2 [facility] Procedures Procedure Date / Time Performed Performing Clinician Source FLU VACC (), 6 MO-64 YRS, .5ML, IM, TIV (FLUCELVAX) 2024-08-04 16:02:05 Jen Vizcarra [facility] POCT SARS-COV-2 ANTIGEN (BINAX NOW) 2024-08-04 15:46:00 Jen Vizcarra [facility] POCT MOLECULAR FLU 2024-08-04 15:45:00 Davion Vizcarra [facility] US PELVIS COMPLETE WITH TRANSVAGINAL 2024-06-27 16:30:46 Sandy Ruiz [facility] POCT URINALYSIS W/O SPECIFIC GRAVITY 2024-06-20 00:00:00 Sandy Ruiz [facility] POCT TEST 2024-05-12 00:00:00 Sandy Ruiz [facility] POCT TEST 2024-04-20 00:00:00 Sandy Ruiz [facility] US PELVIS COMPLETE WITH TRANSVAGINAL 2024-04-13 16:42:10 Wali [facility] FLU VACC (), 6 MO-64 YRS, .5ML, IM, QUAD (FLUCELVAX) 2023-12-11 15:06:44 Lina Goldberg [facility] PPD (TB) 2023-12-11 15:06:21 [facility] MR VENOGRAM HEAD W WO CONTRAST 2023-11-17 19:54:13 Raymond Garcia [facility] MR VENOGRAM HEAD W WO CONTRAST 2023-11-17 19:54:13 Raymond Garcia [facility] SEDIMENTATION RATE 2023-11-17 17:14:00 Manuel Neely [facility] SEDIMENTATION RATE 2023-11-17 17:14:00 Manuel Neely [facility] XR CHEST 2 VW 2023-11-17 00:14:57 Manuel Neely [facility] XR CHEST 2 VW 2023-11-17 00:14:57 Manuel Neely [facility] IR SPINAL LUMBAR PUNCTURE DIAGNOSTIC 2023-11-16 18:43:58 Chin [facility] IR SPINAL LUMBAR PUNCTURE DIAGNOSTIC 2023-11-16 18:43:58 Chin [facility] MR BRAIN WO CONTRAST 2023-11-14 18:50:52 [facility] MR BRAIN WO CONTRAST 2023-11-14 18:50:52 [facility] MR ANGIOGRAM HEAD WO CONTRAST 2023-11-14 18:49:52 [facility] MR ANGIOGRAM HEAD WO CONTRAST 2023-11-14 18:49:52 [facility] MR ORBIT W WO CONTRAST 2023-11-14 18:49:35 [facility] MR ORBIT W WO CONTRAST 2023-11-14 18:49:35 [facility] PROTHROMBIN TIME / INR 2023-11-13 09:30:00 [facility] PROTHROMBIN TIME / INR 2023-11-13 09:30:00 Maite Kaur [facility] PHOSPHORUS 2023-11-13 02:09:00 [facility] MAGNESIUM 2023-11-13 02:09:00 Bebo Flores [facility] FOLATE 2023-11-13 02:09:00 Manuel Neely [facility] TEST, SERUM 2023-11-13 02:09:00 Malorie Torres [facility] BASIC METABOLIC PANEL (NA, K, CL, CO2, GLUCOSE, BUN, CREATININE, CA) 2023-11-13 02:09:00 Maite Floreskalonajillian [facility] CBC WITH DIFF 2023-11-13 02:09:00 Bebo Flores [facility] ANTI-NUCLEAR ANTIBODY SCREEN 2023-11-13 02:09:00 Maite Flores [facility] HOMOCYSTEINE 2023-11-13 02:09:00 Manuel Neely [facility] SYPHILIS IGG/IGM 2023-11-13 02:09:00 Manuel Neely [facility] ANTI-NUCLEAR ANTIBODY-PATHOLOGIST INTERPRETATION 2023-11-13 02:09:00 Maite Flores [facility] TEST, SERUM 2023-11-13 02:09:00 Malorie Torres [facility] CBC WITH DIFF 2023-11-13 02:09:00 Bebo Flores [facility] BASIC METABOLIC PANEL (NA, K, CL, CO2, GLUCOSE, BUN, CREATININE, CA) 2023-11-13 02:09:00 Maite Flores [facility] MAGNESIUM 2023-11-13 02:09:00 Bebo Flores [facility] PHOSPHORUS 2023-11-13 02:09:00 Bebo Flores [facility] ANTI-NUCLEAR ANTIBODY SCREEN 2023-11-13 02:09:00 Maite Flores [facility] ANTI-NUCLEAR ANTIBODY-PATHOLOGIST INTERPRETATION 2023-11-13 02:09:00 Maite Flores [facility] SYPHILIS IGG/IGM 2023-11-13 02:09:00 Manuel Neely [facility] FOLATE 2023-11-13 02:09:00 Manuel Neely [facility] HOMOCYSTEINE 2023-11-13 02:09:00 Manuel Neely [facility] EXTRA TUBE LT. GREEN 2023-11-13 01:13:00 Siddhartha Olson [facility] EXTRA TUBE LT. GREEN 2023-11-13 01:13:00 Siddhartha Olson [facility] VITAMIN B12, LEVEL 2023-11-12 23:45:00 Maite Flores [facility] THYROID STIMULATING HORMONE 2023-11-12 23:45:00 Maite Flores [facility] BASIC METABOLIC PANEL (NA, K, CL, CO2, GLUCOSE, BUN, CREATININE, CA) 2023-11-12 23:45:00 Mariely Torres [facility] SEDIMENTATION RATE 2023-11-12 23:45:00 Maite Flores [facility] CBC WITH DIFF 2023-11-12 23:45:00 Mariely Torres [facility] CBC WITH DIFF 2023-11-12 23:45:00 Mariely Torres [facility] BASIC METABOLIC PANEL (NA, K, CL, CO2, GLUCOSE, BUN, CREATININE, CA) 2023-11-12 23:45:00 Mariely Torres [facility] THYROID STIMULATING HORMONE 2023-11-12 23:45:00 Maite Flores [facility] SEDIMENTATION RATE 2023-11-12 23:45:00 Maite Floreskalonajillian [facility] VITAMIN B12, LEVEL 2023-11-12 23:45:00 Maite Floreskalonajillian [facility] CONSENT/REFUSAL FOR DIAGNOSIS AND TREATMENT 2023-11-12 22:11:43 Doctor Unassigned, [place] [facility] CONSENT/REFUSAL FOR DIAGNOSIS AND TREATMENT 2023-11-12 22:11:43 Doctor Unassigned, [place] [facility] OCT, OPTIC NERVE - OU - BOTH EYES 2023-11-12 20:07:26 Ty Saunders [facility] OCT, OPTIC NERVE - OU - BOTH EYES 2023-11-12 20:07:26 Ty Saunders [facility] POCT MOLECULAR FLU 2023-09-24 15:09:00 Davion Vizcarra [facility] POCT MOLECULAR FLU 2023-09-24 15:09:00 Davion Vizcarra [facility] POCT MOLECULAR STREP 2023-09-24 15:07:00 Trell Vizcarra [facility] POCT MOLECULAR STREP 2023-09-24 15:07:00 Trell Vizcarra [facility] POCT SARS-COV-2 ANTIGEN (BINAX NOW) 2023-09-24 00:00:00 Jen Vizcarra [facility] POCT SARS-COV-2 ANTIGEN (BINAX NOW) 2023-09-24 00:00:00 Jen Vizcarra [facility] CONSENT/REFUSAL FOR DIAGNOSIS AND TREATMENT 2023-09-05 14:48:39 Doctor Unassigned, [place] [facility] CONSENT/REFUSAL FOR DIAGNOSIS AND TREATMENT 2023-09-05 14:48:39 Doctor Unassigned, [place] [facility] EMERGENCY SERVICES AGREEMENTS AND AUTHORIZATIONS 2023-09-05 05:01:00 Doctor Unassigned, [place] [facility] PNEUMOCOCCAL 20 CONJUGATE (PREVNAR 20) VACCINE 2023-08-04 15:48:55 Jen Vizcarra [facility] ASSIGNMENT OF BENEFITS 2023-07-07 15:15:06 Docto r Unassigned, [place] [facility] AUTHORIZATION FOR RELEASE OF PHI 2022-06-27 05:01:00 Doctor Unassigned, [place] [facility] Encounters Start Date/Time End Date/Time Encounter Type Admission Type Attending [facility] Care Facility Care Department Encounter ID Source 2021-09-27 11:39:57 Outpatient SANDY RUIZ [facility] [id number] [facility] 2021-09-27 03:00:06 Emergency [facility] [id number] [facility] 2024-11-08 11:20:00 2024-11-08 11:20:00 Outpatient R JEN VIZCARRA [facility] [id number] [facility] 2024-09-22 09:00:00 2024-09-22 09:00:00 Outpatient R JOSE MCKEON [facility] [id number] [facility] 2024-08-26 00:00:00 2024-08-26 15:01:54 Telephone Jen Vizcarra [facility] [id number] [facility] 2024-08-24 18:45:00 2024-08-24 18:45:00 Outpatient R JEN VIZCARRA [facility] [id number] [facility] 2024-08-04 09:40:00 2024-08-04 10:47:25 Outpatient R JEN VIZCARRA [facility] [id number] [facility] 2024-08-04 09:40:00 2024-08-04 10:47:25 Office Visit Jen Vizcarra [facility] [id number] [facility] 2024-08-04 09:15:00 2024-08-04 09:30:00 Senior Business Development Manager Visit 2, Adc Lab Jen Vizcarra 2, Adc Lab [facility] [id number] [facility] 2024-07-04 08:45:00 2024-07-04 08:45:00 Outpatient R SANDY RUIZ VIEN [facility] [id number] [facility] 2024-06-27 10:54:08 2024-06-27 23:59:00 Outpatient R SANDY RUIZ [facility] [id number] [facility] [facility] 2024-06-27 10:54:08 2024-06-27 23:59:00 Hospital Encounter Sandy Ruiz [facility] 1.2.840.114 350.1.13.10 4.2.7.2.686 [id number] [facility] 2024-06-20 09:00:00 2024-06-20 09:33:03 Outpatient R SANDY RUIZ VIEN [facility] [id number] [facility] 2024-06-20 09:00:00 2024-06-20 09:33:03 Office Visit Sandy Ruiz [facility] 1.2.840.114 350.1.13.10 4.2.7.2.686 [id number] [facility] 2024-05-27 00:00:00 2024-05-30 09:12:[address] [facility] 1.2.840.114 350.1.13.10 4.2.7.2.686 [id number] 044 [id number] [facility] 2024-05-17 00:00:00 2024-05-17 16:32:11 Patient Secure Msg Doctor Unassigned, [place] [facility] 1.840.114 350.1.13.10 4.2.7.2.686 [id number] 134 [id number] [facility] 2024-05-12 08:30:00 2024-05-12 09:22:48 Outpatient R SANDY RUIZ [facility] [id number] [facility] 2024-05-12 08:30:00 2024-05-12 09:22:48 Office Visit Sandy Ruiz [facility] 1..840.114 350.1.13.10 4.2.7.2.686 [id number] [facility] 2024-05-11 00:00:00 2024-05-11 10:20:05 Telephone Jen Vizcarra [facility] 1.2.840.114 350.1.13.10 4.2.7.2.686 [id number] [id number] [facility] 2024-05-11 10:00:00 2024-05-11 10:00:00 Outpatient R [facility] [id number] [facility] 2024-04-28 00:00:00 2024-05-05 10:47:45 Telephone Jen Vizcarra [facility] 1..840.114 350.1.13.10 4.2.7.2.686 [id number] [facility] 2024-05-04 15:00:00 2024-05-04 15:31:18 Outpatient R SANDY RUIZ [facility] [id number] [facility] 2024-05-04 15:00:00 2024-05-04 15:31:18 Office Visit Sandy Ruiz [facility] 1.2.840.114 350.1.13.10 4.2.7.2.686 [id number] [facility] 2024-04-20 10:45:00 2024-04-20 11:23:35 Outpatient R SANDY RUIZ [facility] [id number] [facility] 2024-04-20 10:45:00 2024-04-20 11:23:35 Office Visit Sandy Ruiz [facility] 1.2.840.114 350.1.13.10 4.2.7.2.686 [id number] [facility] 2024-04-13 11:06:01 2024-04-13 23:59:00 Outpatient R SANDY RUIZ [facility] [id number] [facility] 2024-04-13 11:00:00 2024-04-13 23:59:00 Hospital Encounter Sandy Ruiz [facility] 1.2.840.114 350.1.13.10 4.2.7.2.686 [id number] [facility] 2024-04-04 16:00:00 2024-04-04 16:06:13 Senior Business Development Manager Visit 2, Adc Lab Sandy Ruiz [facility] BUILD[facility] 1..840.114 350.1.13.10 4.2.7.2.686 [id number] [facility] 2024-04-04 15:00:00 2024-04-04 15:47:54 Outpatient R SANDY RUIZ [facility] [id number] [facility] 2024-04-04 15:00:00 2024-04-04 15:47:54 Office Visit Sandy Ruiz [facility] 1..840.114 350.1.13.10 4.2.7.2.686 [id number] [facility] 2024-03-10 08:00:00 2024-03-10 08:00:00 Outpatient R SANDY RUIZ [facility] [id number] [facility] 2024-02-29 09:30:00 2024-02-29 09:30:00 Outpatient R LINA KEARNS [facility] [id number] [facility] 2024-02-29 00:00:00 2024-02-29 00:00:00 Telephone Jen Vizcarra [facility] 1..840.114 350.1.13.10 4.2.7.2.686 [id number] 044 [id number] [facility] 2024-02-02 09:20:00 2024-02-02 09:46:26 Outpatient R JEN VIZCARRA [facility] [id number] [facility] 2024-02-02 09:20:00 2024-02-02 09:46:26 Office Visit Jen Vizcarra [facility] 1.2.840.114 350.1.13.10 4.2.7.2.686 [id number] [facility] 2024-01-29 11:00:00 2024-01-29 11:48:40 Outpatient Nelsy KEARNS [facility] [id number] [facility] 2024-01-29 11:00:00 2024-01-29 11:48:40 [facility] 1.2.840.114 350.1.13.10 4.2.7.2.686 [id number] [facility] 2024-01-07 11:20:00 2024-01-07 11:20:00 Outpatient R JEN VIZCARRA [facility] [id number] [facility] 2024-01-04 15:30:00 2024-01-04 15:30:00 Outpatient BUD PANIAGUASSICA [facility] [id number] [facility] 2023-12-17 10:00:00 2023-12-17 10:20:00 Nurse Visit Nurse, Patito Goldberg [facility] BUILDING 1.2.840.114 350.1.13.10 4.2.7.2.686 [id number] [id number] [facility] 2023-12-17 10:00:00 2023-12-17 10:00:00 Outpatient BUD GALVANSSICA [facility] [id number] [facility] 2023-12-17 00:00:00 2023-12-17 00:00:00 Letter (Out) Bud Goldbergssica [facility] 1.2.840.114 350.1.13.10 4.2.7.2.686 [id number] 044 [id number] [facility] 2023-12-15 10:30:00 2023-12-15 11:10:16 Outpatient R LINA GOLDBERG [facility] [id number] [facility] 2023-12-15 10:30:00 2023-12-15 11:10:16 [facility] 1.2.840.114 350.1.13.10 4.2.7.2.686 [id number] [id number] [facility] 2023-12-11 09:00:00 2023-12-11 09:33:35 Outpatient R LINA GOLDBERG [facility] [id number] [facility] 2023-12-11 09:00:00 2023-12-11 09:33:35 [facility] 1.2.840.114 350.1.13.10 4.2.7.2.686 [id number] [facility] 2023-12-08 11:00:00 2023-12-08 11:00:00 Outpatient R LINA KEARNS [facility] [id number] [facility] 2023-11-12 16:39:00 2023-11-17 17:50:00 Outpatient X RAMESH GUTIERREZ DIOSELY [facility] [id number] [facility] 2023-11-12 16:39:00 2023-11-17 17:50:00 Emergency Mariely Torres Jorge Silveira, Diosely 1.2.840.1 81779.1.1 3.104.2.7 .3.253301 .8 [id number] [facility] 2023-11-12 13:15:00 2023-11-12 14:18:47 Outpatient R TY SAUNDERS [facility] [id number] [facility] 2023-11-12 13:15:00 2023-11-12 14:18:47 Office Visit Lonny Ty 1.2.840.1 12127.1.1 3.104.2.7 .3.482612 .8 [id number] [facility] 2023-11-12 13:00:00 2023-11-12 14:12:43 Outpatient R TY SAUNDERS [facility] [id number] [facility] 2023-11-12 13:00:00 2023-11-12 14:12:43 Office Visit Ty Saunders 1.2.840.1 43245.1.1 3.104.2.7 .3.087259 .8 [id number] [facility] 2023-11-12 13:45:00 2023-11-12 13:50:00 Ancillary Procedure Lonny Ty 1.2.840.1 12794.1.1 3.104.2.7 .3.629168 .8 [id number] [facility] 2023-11-12 00:00:00 2023-11-12 00:00:00 Travel 1.2.840.1 80305.1.1 3.104.2.7 .3.050183 .8 1.2.840.114 350.1.13.10 4.2.7.3.698 084.8 [id number] [facility] 2023-09-29 00:00:00 2023-09-29 00:00:00 Patient Secure Msg Doctor Unassigned, [place] 1.2.840.1 82834.1.1 3.104.2.7 .3.321701 .8 [id number] [facility] 2023-09-24 10:00:00 2023-09-24 11:00:21 Outpatient R PAULA JEN [facility] [id number] [facility] 2023-09-24 10:00:00 2023-09-24 11:00:21 Office Visit PaulaJen 1.2.840.1 64694.1.1 3.104.2.7 .3.001211 .8 [id number] [facility] 2023-09-24 00:00:00 2023-09-24 00:00:00 Travel 1.2.840.1 27406.1.1 3.104.2.7 .3.211568 .8 1.2.840.114 350.1.13.10 4.2.7.3.698 084.8 [id number] [facility] 2023-09-24 00:00:00 2023-09-24 00:00:00 Letter (Out) Paula Jen 1.2.840.1 08713.1.1 3.104.2.7 .3.869815 .8 [id number] [facility] 2023-09-18 10:30:00 2023-09-18 10:47:10 Outpatient R VIOLTE JONES [facility] [id number] [facility] 2023-09-18 10:30:00 2023-09-18 10:47:10 Office Visit Violet Jones Alissa 1.2.840.1 85977.1.1 3.104.2.7 .3.851089 .8 [id number] [facility] 2023-09-18 00:00:00 2023-09-18 00:00:00 Travel 1.2.840.1 11414.1.1 3.104.2.7 .3.101864 .8 1.2.840.114 350.1.13.10 4.2.7.3.698 084.8 [id number] [facility] 2023-09-12 00:00:00 2023-09-12 00:00:00 Telephone AlexisJen sheldon 1.2.840.1 97843.1.1 3.104.2.7 .3.764118 .8 [id number] [facility] 2023-09-05 10:14:00 2023-09-05 13:06:00 Emergency X JORDI Ubaldo [facility] ERT [id number] [facility] 2023-09-05 10:14:00 2023-09-05 13:06:00 Emergency Ubaldo Bacon Fior 1.2.840.1 38375.1.1 3.104.2.7 .3.902604 .8 [id number] [facility] 2023-09-05 00:00:00 2023-09-05 00:00:00 Travel 1.2.840.1 82885.1.1 3.104.2.7 .3.281572 .8 1.2.840.114 350.1.13.10 4.2.7.3.698 084.8 [id number] [facility] 2023-08-13 09:00:00 2023-08-13 09:15:00 Senior Business Development Manager Visit 2, Adc Lab Jen Vizcarra [facility] 1.2.840.114 350.1.13.10 4.2.7.2.686 [id number] [facility] 2023-08-13 09:00:00 2023-08-13 09:00:00 Outpatient R JEN VIZCARRA [facility] [id number] [facility] 2023-08-11 00:00:00 2023-08-11 00:00:00 Telephone Jen Vizcarra [facility] N[facility] BUILD[facility] 1.2.840.114 350.1.13.10 4.2.7.2.686 [id number] [facility] 2023-08-07 00:00:00 2023-08-07 00:00:00 Telephone Jen Vizcarra [facility] 1.2.840.114 350.1.13.10 4.2.7.2.686 [id number] 044 [id number] [facility] 2023-08-04 10:00:00 2023-08-04 10:54:10 Outpatient R JEN VIZCARRA [facility] [id number] [facility] 2023-08-04 10:00:00 2023-08-04 10:54:10 Office Visit Jen Vizcarra [facility] 1.2.840.114 350.1.13.10 4.2.7.2.686 [id number] 044 [id number] [facility] 2023-08-04 00:00:00 2023-08-04 00:00:00 Patient Secure Msg Doctor Unassigned, [place] [facility] 1.2.840.114 350.1.13.10 4.2.7.2.686 [id number] [facility] 2023-07-07 11:30:00 2023-07-07 11:45:00 Senior Business Development Manager Visit 2, Adc Lab Jen Vizcarra [facility] BUILDING 1.2.840.114 350.1.13.10 4.2.7.2.686 [id number] [facility] 2023-07-07 10:00:00 2023-07-07 11:25:08 Outpatient R JEN VIZCARRA [facility] [id number] [facility] 2023-07-07 10:00:00 2023-07-07 11:25:08 Office Visit Jen Vizcarra [facility] 1.2.840.114 350.1.13.10 4.2.7.2.686 [id number] [id number] [facility] 2023-07-07 00:00:00 2023-07-07 00:00:00 Orders Only Doctor Unassigned, [place] [facility] 1.2.840.114 350.1.13.10 4.2.7.2.686 [id number] [facility] 2023-05-12 10:00:00 2023-05-12 10:00:00 Outpatient JEN HICKS [facility] [id number] [facility] 2022-06-27 00:00:00 2022-06-27 00:00:00 Orders Only Doctor Unassigned, [place] [facility] 1.2.840.114 350.1.13.10 4.2.7.2.686 [id number] [facility] 2020-07-16 10:15:00 2020-07-16 10:15:00 Outpatient R [facility] [id number] [facility] 2020-06-29 15:00:00 2020-06-29 15:00:00 Outpatient SANDY GUPTA [facility] [id number] [facility] 2020-06-27 13:45:00 2020-06-27 13:45:00 Outpatient R ARCADIO MCCALLUM [facility] [id number] [facility] 2020-06-15 10:30:00 2020-06-15 10:30:00 Outpatient SANDY GUPTA [facility] [id number] [facility] 2020-06-11 12:47:01 2020-06-11 12:47:01 Outpatient ARLYN BENTON [facility] [id number] [facility] 2020-05-24 11:30:00 2020-05-24 11:30:00 Outpatient DONTE KENYON [facility] [id number] [facility] 2020-05-15 13:15:00 2020-05-15 13:15:00 Outpatient SANDY GUPTA [facility] [id number] [facility] 2020-05-07 10:30:00 2020-05-07 10:30:00 Outpatient P [facility] [id number] [facility] 2020-04-27 11:15:00 2020-04-27 11:15:00 Outpatient R DONTE SANCHEZ [facility] [id number] [facility] 2020-04-11 14:30:00 2020-04-11 14:30:00 Outpatient R ALYSHA SIMON [facility] [id number] [facility] 2020-04-10 13:00:00 2020-04-10 13:00:00 Outpatient R RUIZ SANDY [facility] [id number] [facility] 2020-03-29 14:00:00 2020-03-29 14:00:00 Outpatient R [facility] [id number] [facility] 2020-03-26 10:30:00 2020-03-26 10:30:00 Outpatient R DONTE SANCHEZ [facility] [id number] [facility] 2020-03-23 08:00:00 2020-03-23 08:00:00 Outpatient R [facility] [id number] [facility] 2020-03-16 15:15:00 2020-03-16 15:15:00 Outpatient P [facility] [id number] [facility] 2020-03-14 14:30:00 2020-03-14 14:30:00 Outpatient R [facility] [id number] [facility] 2020-03-12 08:00:00 2020-03-12 08:00:00 Outpatient R [facility] [id number] [facility] 2020-03-01 09:15:00 2020-03-01 09:15:00 Outpatient R DONTE SANCHEZ [facility] [id number] [facility] 2020-02-29 08:45:00 2020-02-29 08:45:00 Outpatient R BISMARK GALICIA [facility] [id number] [facility] 2020-02-17 10:45:00 2020-02-17 10:45:00 Outpatient P [facility] [id number] [facility] 2020-02-16 13:30:00 2020-02-16 13:30:00 Outpatient ARLYN BENTON [facility] [id number] [facility] marcus [facility] Results Test Description Test Time Test Comments Results Result Co mments Source HIV 1/2 4TH GEN, RFLX [id number] 06:24:11* Test Item Value Reference Range Interpretation Comme nts HIV 1/2 4TH GEN, RFLX CONF (test code = 3514) NON-REACTIVE NON-REACTIVE UNLESS OTHERWISE INDICATED, ALL TESTING PERFORMED AT [facility] [address] [place] [address] CLINICAL DOCUMENTATION SPEC: ALEJANDRA URIBE M.D. CLIA NUMBER [id number] [facility] [place]. [id number] COMPREHENSIVE METABOLIC [id number] 05:25:14* Test Item Value Reference Range Interpretation Comme nts GLUCOSE (test code = 2217) 117 MG/DL 70-99 H BUN (test code = 8) 16 MG/DL 6-20 CREATININE (test code = 2214) 0.65 MG/DL 0.60-1.30 eGFR (2020 CKD-EPI) (test code = 93187) 121 ML/MIN/1.73 >60 CALC BUN/CREAT (test code = 2235) 25 RATIO 6-28 SODIUM (test code = 2231) 140 MEQ/L 133-146 POTASSIUM (test code = 2228) 4.0 MEQ/L 3.5-5.4 CHLORIDE (test code = 2215) 102 MEQ/L 95-107 CARBON DIOXIDE (test code = 2206) 23 MEQ/L 19-31 CALCIUM (test code = 2209) 9.0 MG/DL 8.5-10.5 PROTEIN, TOTAL (test code = 222) 7.1 G/DL 6.1-8.3 ALBUMIN (test code = 2201) 4.0 G/DL 3.5-5.2 CALC GLOBULIN (test code = 2240) 3.1 G/DL 1.9-3.7 CALC A/G RATIO (test code = 2234) 1.3 RATIO 1.0-2.6 BILIRUBIN, TOTAL (test code = 2207) 0.4 MG/DL <=1.2 ALKALINE PHOSPHATASE (test code = 2204) 85 U/L 40-114 AST (test code = 2218) 12 U/L 9-40 ALT (test code = 2219) 11 U/L 5-40 LIPID [id number] 05:25:14* Test Item Value Reference Range Interpretation Comme nts CHOLESTEROL (test code = 2210) 135 MG/DL <200 TRIGLYCERIDES (test code = 2232) 106 MG/DL <150 HDL CHOLESTEROL (test code = 2220) 44 MG/DL >39 CALC LDL CHOL (test code = 2237) 72 MG/DL <100 NOTE: CALCULATED LDL IS BASED ON JENNIFER-CASTRO METHOD WHICHINCLUDES ADJUSTABLE TRIGLYCERIDE:VLDL CHOLESTEROL RATIO.THIS FACTOR VARIES BY MEASURED TRIGLYCERIDE AND NON-HDLCHOLESTEROL CONCENTRATIONS WITH INCREASED CALCULATED LDL SEENIN HIGHER TRIGLYCERIDE OR LOWER NON-HDL SPECIMENS. FOR MOREINFORMATION, SEE CLIENT ANNOUNCEMENT AT [email or web address] RATIO LDL/HDL (test code = 2238) 1.64 RATIO <3.22 POCT Molecular [id number] 15:56:54* Test Item Value Reference Range Interpretation Comme [facility] POCT Molecular FluA (test co de = 08305-1) Negative Negative POCT Molecular FluB (test co de = 92099-2) Negative Negative Lab Interpretation (test cod e = 96252-0) Normal [facility] SARS-COV-2 ANTIGEN (BINAX NOW)2024-08-04 15:46:00* Test Item Value Reference Range Interpretation Comme [facility] POCT SARS-COV-2 ANTIGEN (test code = 92587-0) Not Detected Not Detected, See Comment On board controls acceptable with C Line (test code = 3574) Yes [facility] PELVIS COMPLETE WITH [id number] 23:39:39EXAM: US PELVIS COMPLETE WITH TRANSVAGINAL HISTORY: 29 years-old Female; RLQ pain and dyspareunia .TECHNIQUE: Transabdominal and transvaginal ultrasound imaging and colorDoppler evaluation of the pelvis was performed. Gluing Machine Operator images wereobtained for the record. Limited visualization due to bowel gas and bodyhabitus. COMPARISON: US pelvis complete with transvaginal on 04/13/2024 FINDINGS: Uterus: The uterus is normal in size and measures 9.5 x 4.7 x 6.4 cm. Themyometrium appears homogenous. No focal lesion is detected. The endometriumis normal in appearance and the thickness measures 0.5 cm. The IUD is inplace with arms at the region of fundus. Small nabothian cysts are seennear the cervix. Right Adnexa:Ovary: The right ovary measures 3.9 x 2.3 x 3.0 cm, with a volume of 14.2ml. A dominant follicle is seen in the right ovary measuring 2.5 cm. Left Adnexa:Ovary: The left ovary measures 2.9 x 2.0 x 2.5 cm, with a volume of 7.6 ml.A large follicle is seen in the left ovary measuring up to 2.3 cm. Cul-de-sac: Small amounts of free fluid, likely physiological, are present.[facility] Urinalysis w/o Specific [place] 2024-06-20 13:39:00* Test Item Value Reference Range Interpretation Comme nts POCT PH U (test code = 3254) 6 mg/dl 5-8 POCT U LEUK EST (test code = 3263) 1+ Negative - Negative POCT U NIT (test code = 3262) negative Negative - Negati ve POCT U PROT (test code = 3259) trace Negative - Negat gena POCT U GLU (test code = 3256) negative Negative - Negati ve POCT U KETONE (test code = 3258) negative Negative - Neg ative POCT U BLD (test code = 3257) 250 Negative - Negati ve [facility] 06:05:44* Test Item Value Reference Range Interpretation Comme nts NOTE: (test code = 998) (NOTE) IN ACCORDANCE [facility] FEDERAL GUIDELINES REQUIRING ALL VERBAL REQUESTS FOR LABORATORY TESTS TO BE ACCOMPANIED BY WRITTEN AUTHORIZATION WITHIN 30 DAYS OF THIS REQUEST, PLEASE SIGN BELOW AND RETURN A COPY OF THIS REPORT BY FAX TO THE LABORATORY SCANNING DEPARTMENT AT [phone]. PHYSICIAN'S SIGNATURE DATE UNLESS OTHERWISE INDICATED, ALL TESTING PERFORMED AT [facility] [address] [place] [address] CLINICAL DOCUMENTATION SPEC: ALEJANDRA URIBE M.D. [place] NUMBER [id number] [facility] [place]. [id number] HEPATITIS B SURFACE [id number] 01:43:22* Test Item Value Reference Range Interpretation Comme nts HEPATITIS B SURFACE AB (test code = 2737) NON-REACTIVE NON-REACTIVE POCT [id number] 13:48:00* Test Item Value Reference Range Interpretation Comme nts POCT PREG (test code = 1605) Negative On board controls acceptable with C Line (test code = 3574) Yes POCT PREG LOT # (test code = 3575) POCT PREG TEST DATE ( test code = 3576) [facility] [id number] 13:48:00* Test Item Value Reference Range Interpretation Comme nts POCT PREG (test code = 1605) Negative On board controls acceptable with C Line (test code = 3574) Yes POCT PREG LOT # (test code = 3575) POCT PREG TEST DATE ( test code = 3576) [facility] Hospital[facility]MR AND VARICELLA [id number] 13:10:10* Test Item Value Reference Range Interpretation Comme nts RUBEOLA AB, IgG (test code = 24324) 226.0 AU/ML SEE BELOW INTERPRETATI ON UNITS RANGE ----- ----- NEGATIVE AU/ML <13.5 EQUIVOCAL AU/ML 13.5-16.4 NOTE: CONSIDER RETESTING IN A CLINICALLY SUITABLE PERIOD OF TIME, NO SOONER THAN 1-2 WEEKS. POSITIVE AU/ML >=16.5 MUMPS VIRUS AB, IgG (test code = 4585) 14.6 AU/ML SEE BELOW INTERPRETATIO N MUMPS IgG NEGATIVE . . . . . . . . . . . . AU/ML <9.0 EQUIVOCAL. . . . . . . . . . . . AU/ML 9.0-10.9 POSITIVE . . . . . . . . . . . . AU/ML >=11.0 RUBELLA ANTIBODY SCREEN (test code = 4600) 20 IU/ML SEE BELOW RUBELLA IgG INTERP (test code = 22364) REACTIVE REACTIVE INTERPRETATI ON UNITS RANGE NON-REACTIVE/NON-IMMUNE IU/ML <10 REACTIVE/IMMUNE IU/ML >=10 VARICELLA ZOSTER IgG (test code = 29454) 639 INDEX SEE BELOW INTERPRETATION V ZV IgG NEGATIVE . . . . . . . . . . . . INDEX <135 EQUIVOCAL. . . . . . . . . . . . INDEX 135-164 NOTE: CONSIDER RETESTING IN A CLINICALLY SUITABLE PERIOD OF TIME, NO SOONER THAN 1-2 WEEKS. POSITIVE . . . . . . . . . . . . INDEX >=165 RUBELLA AB, [id number] 05:21:39* Test Item Value Reference Range Interpretation Comme nts RUBELLA AB, IgM (test code = 4601) 0.203 INDEX SEE BELOW RUBELLA AB, IgM INTERP (test code = 11850) NON-REACTIVE NEGATIVE INTERPRETATION U NITS RANGE ----- ----- NON-REACTIVE INDEX <0.800 BORDERLINE INDEX 0.800-0.999 REACTIVE INDEX >=1.000 UNLESS OTHERWISE INDICATED, ALL TESTING PERFORMED AT [facility] [address] [place] [address] CLINICAL DOCUMENTATION SPEC: ALEJANDRA URIBE M.D. CLIA NUMBER [id number] [facility] [place]. [id number] HEP B CORE AB RFLX [id number] 05:21:39* Test Item Value Reference Range Interpretation Comme nts HEP B CORE TOTAL AB (test co de = 2729) NON-REACTIVE NON-REACTIVE POCT [id number] 16:02:00* Test Item Value Reference Range Interpretation Comme nts POCT PREG (test code = 1605) Negative On board controls acceptable with C Line (test code = 3574) Yes POCT PREG LOT # (test code = 3575) PO[facility]REG TEST DATE ( test code = 3576[id number] 16:02:[facility]* Test Item Value Reference Range Interpretation Comme nts POCT PREG (test code = 1605) Negative On board controls acceptable with C Line (test code = 3574) Yes POCT PREG LOT # (test code = 3575) POCT PREG TEST DATE ( test code = 3576) [facility] WITH [id number] 16:49:55HISTORY: ?Abnormal uterine bleeding. TECHNIQUE: Both transabdominal and transvaginal pelvic ultrasound studieswere completed by the technologist. FINDINGS: Uterus is bulky in size, normal in shape, measures approximately8.6 x 4.8 x 5.3 cm in size with homogeneous echo texture of the myometrium.Small nabothian cysts are seen in the cervix, the largest is 9 mm .Endometrial echo complex is 7.5 mm. No free fluid in the cul-de-sac. Right ovary is 3.1 x 2.6 x 1.8 cm ( 7.60 ml) and left ovary is probablylocated behind the uterus and not well visualized. Right ovary containsmultiple cysts, largest slightly irregular cyst is 2.2 x 1.3 cm in sizewith a smaller 5 mm daughter cyst protruding into its lumen. CONCLUSIONS: 1. Bulky uterus with no focal myometrial lesions seen.2. No endometrial hyperplasia.3. 2.2 cm dominant cyst in the right ovary. Left ovary is not visualized inthis study.[facility] [id number] 05:21:02* Test Item Value Reference Range Interpretation Comme nts VIT B12 (test code = 8605986753) 297 pg/mL 240-930 RISA (test code = RISA) Biotin has been reported to cause a positive bias, interpret results relative to patient's use of biotin. Lab Interpretation (test code = 58796-5) Normal [facility] [id number] 05:21:02* Test Item Value Reference Range Interpretation Comme nts VIT B12 (test code = 8639239706) 297 pg/mL 240-930 RISA (test code = RISA) Biotin has been reported to cause a positive bias, interpret results relative to patient's use of biotin. Lab Interpretation (test code = 51354-2) Normal [facility]ulating [id number] 05:02:18 * Test Item Value Reference Range Interpretation Comme nts TSH (test code = 2754614251) 0.80 See_Comment Biotin has been reported to cause a negative bias, interpret results relative to patient's use of biotin. [Automated message] The system which generated this result transmitted reference range: 0.45 - 4.70 mIU/L. The reference range was not used to interpret this result as normal/abnormal. Lab Interpretation (test code = 04446-1) Normal [facility] [id number] 05:02:18 * Test Item Value Reference Range Interpretation Comme nts TSH (test code = 3403372067) 0.80 See_Comment Biotin has been reported to cause a negative bias, interpret results relative to patient's use of biotin. [Automated message] The system which generated this result transmitted reference range: 0.45 - 4.70 mIU/L. The reference range was not used to interpret this result as normal/abnormal. Lab Interpretation (test code = 26294-6) Normal [facility] HospitalSedimentation Rate - [id number] 01:33:19* Test Item Value Reference Range Interpretation Comme nts ESR (test code = 42103-6) 24 See_Comment [Automated message] The system which generated this result transmitted reference range: 2 - 30 mm/HR. The reference range was not used to interpret this result as normal/abnormal. Lab Interpretation (test code = 49065-2) Normal [facility] Metabolic Panel (NA, K, CL, CO2, GLUCOSE, BUN, CREATININE, CA)2023-11-13 00:10:36* Test Item Value Reference Range Interpretation Comme nts NA (test code = 5552103500) 136 mmol/L 135-145 K (test code = 4942486793) 3.9 mmol/L 3.5-5.0 Slight hemolysis CL (test code = 3146658915) 100 mmol/L 98-108 CO2 TOTAL (test code = 6627580319) 28 mmol/L 23-31 AGAP (test code = 7527852014) 8 2-16 BUN (test code = 7154196232) 14 mg/dL 7-23 Slight hemolysis GLUCOSE (test code = 3545630060) 130 mg/dL 70-110 H CREATININE (test code = 6149600900) 0.58 mg/dL 0.50-1.04 CALCIUM (test code = 4930494323) 8.8 mg/dL 8.6-10.6 eGFR (test code = 97017-6) 125.0 mL/min/1.73m2 CKD-EPI eGFR (2020). Assuming creatinine has been stable day-to-day for at least three months, the eGFR indicates Category G1 (>= 90 mL/min/1.73 m2) Lab Interpretation (test code = 88345-6) Abnormal [facility] with [id number] 23:59:50* Test Item Value Reference Range Interpretation Comme nts WBC (test code = 6690-2) 7.63 See_Comment [Automated messa ge] The system which generated this result transmitted reference range: 4.30 - 11.10 10*3/?L. The reference range was not used to interpret this result as normal/abnormal. RBC (test code = 789-8) 4.52 See_Comment [Automated messa ge] The system which [...] 31.6 g/dL 31.6-35.1 RDW-SD (test code = 23102-1) 44.7 fL 39.0-49.9 RDW-CV (test code = 788-0) 15.3 % 12.0-15.5 PLT (test code = 777-3) 240 See_Comment [Automated messa ge] The system which generated this result transmitted reference range: 166 - 358 10*3/?L. The reference range was not used to interpret this result as normal/abnormal. MPV (test code = 83941-6) 12.6 fL 9.5-12.9 NRBC/100 WBC (test code = 8019434265) 0.0 See_Comment [Automated me ssage] The system which generated this result transmitted reference range: 0.0 - 10.0 /100 WBCs. The reference range was not used to interpret this result as normal/abnormal. NRBC x10^3 (test code = 5821267999) See_Comment [Automated messa ge] The system which generated this result transmitted reference range: 10*3/?L. The reference range was not used to interpret this result as normal/abnormal. GRAN MAT (NEUT) % (test code = 770-8) 67.7 % IMM GRAN % (test code = 4129256749) 0.30 % LYMPH % (test code = 736-9) 25.7 % MONO % (test code = 5905-5) 3.4 % EOS % (test code = 713-8) 2.4 % BASO % (test code = 706-2) 0.5 % GRAN MAT x10^3(ANC) (test code = 1616486582) 5.17 10*3/uL 1.88-7.09 IMM GRAN x10^3 (test code = 4497006377) 0.00-0.06 LYMPH x10^3 (test code = 731-0) 1.96 10*3/uL 1.32-3.29 MONO x10^3 (test code = 742-7) 0.26 10*3/uL 0.33-0.92 L EOS x10^3 (test code = 711-2) 0.18 10*3/uL 0.03-0.39 BASO x10^3 (test code = 704-7) 0.04 10*3/uL 0.01-0.07 Lab Interpretation (test code = 38330-7) Abnormal [facility] HospitalOCT, Optic Nerve - OU - Both [id number] 20:07:26* Test Item Value Reference Range Interpretation Comme [facility] Average RNFL Baseline (OS) (test code = 217018502) 113 Average RNFL Baseline (OD) (test code = 260834138) 113 Radiology Study observation (narrative) (test code = 91473-1) RISA (test code = RISA) Device utilized wa s Cirrus. Right EyeTo assess optic nerve function and for use in future follow-up. Reliability: good and adequate. 113. Left EyeTo assess optic nerve function and for use in future follow-up. Reliability: good and adequate. 113. NotesSwelling of the optic nerves >> nasally OU [facility] HospitalPOCT MOLECULAR [id number] 15:21:09* Test Item Value Reference Range Interpretation Comme nts POCT Molecular FluA (test co de = 12193-6) Negative Negative POCT Molecular FluB (test co de = 90176-2) Negative Negative Lab Interpretation (test cod e = 88485-7) Normal [facility] MOLECULAR [id number] 15:21:09* Test Item Value Reference Range Interpretation Comme nts POCT Molecular FluA (test co de = 43947-9) Negative Negative POCT Molecular FluB (test co de = 27069-0) Negative Negative Lab Interpretation (test cod e = 41218-9) Normal [facility] MOLECULAR [id number] 15:21:09* Test Item Value Reference Range Interpretation Comme nts POCT Molecular FluA (test co de = 84983-4) Negative Negative POCT Molecular FluB (test co de = 47017-7) Negative Negative Lab Interpretation (test cod e = 83534-9) Normal [facility] MOLECULAR [id number] 15:15:03* Test Item Value Reference Range Interpretation Comme nts POCT Molecular Strep (test c ode = 13248-8) Negative Negative Lab Interpretation (test cod e = 41317-6) Normal [facility] MOLECULAR [id number] 15:15:03* Test Item Value Reference Range Interpretation Comme nts POCT Molecular Strep (test c ode = 69023-2) Negative Negative Lab Interpretation (test cod e = 50049-4) [facility] MOLECULAR [id number] 15:15:03* Test Item Value Reference Range Interpretation Comme nts POCT Molecular Strep (test c ode = 77608-8) Negative Negative Lab Interpretation (test cod e = 69548-5) Normal [facility] SARS-COV-2 ANTIGEN (BINAX NOW)2023-09-24 15:14:00* Test Item Value Reference Range Interpretation Comme nts POCT SARS-COV-2 ANTIGEN (cleo t code = 20223-0) Positive Not Detected A On board controls acceptable with C Line (test code = 3574) Yes Lab Interpretation (test cod e = 92797-0) Abnormal [facility] SARS-COV-2 ANTIGEN (BINAX NOW)2023-09-24 15:14:00* Test Item Value Reference Range Interpretation Comme nts POCT SARS-COV-2 ANTIGEN (cleo t code = 31815-1) Positive Not Detected A On board controls acceptable with C Line (test code = 3574) Yes Lab Interpretation (test cod e = 22671-2) Abnormal [facility] SARS-COV-2 ANTIGEN (BINAX NOW)2023-09-24 15:14:00* Test Item Value Reference Range Interpretation Comme nts POCT SARS-COV-2 ANTIGEN (cleo t code = 50592-2) Positive Not Detected A On board controls acceptable with C Line (test code = 3574) Yes Lab Interpretation (test cod e = 47511-2) Abnormal [facility] History and Physical Notes Date/Time Note Provider Source 2024-09-12 13:17:17 New Medication Vitamin D deficiency - Vitamin D, 25-OH; Standing - ergocalciferol, vitamin d2, 1,250 mcg (50,000 unit) capsule; Take 1 capsule by mouth weekly. Dispense: 26 capsule; Refill: 1 - calcium carbonate 500 mg calcium (1,250 mg) tablet; Take 1 tablet by mouth in the morning. Dispense: 90 tablet; Refill: 3 [facility] Notes Date/Time Note Provider Source 2024-09-12 13:19:36 Addended by: JEN VIZCARRA on: 09/12/2024 01:19 PM Modules accepted: Orders [facility] 2024-08-26 14:47:17 Discussed with who advised pt needs to come to clinic for evaluation or Urgent care. Call placed to pt she reports she has been taking Benadryl and Tylenol with no relief. Reports hive on elbow is increasing in size. Pt states she is unable to clinic due to work scheduled. Informed pt she can be seen at Urgent Care for after hours care. Pt states she will go to Urgent Care after work today. Kathia Aguiar RN [facility] 2024-08-26 14:30:46 LVM to call office. [facility] 2024-08-26 13:03:33 Emerson Young is a 29 year old female pt has hives on arms that are red, inflamed, swollen, itchy and hot to touch x2days. pt is requesting a tele-health appt with Dr. Vizcarra, if allowed because she is at work. Michelle Hamilton [facility] 2024-08-04 09:40:00 Negative COVID and Flu screenings. Continue with plan of care as dicussed [facility] 2024-08-04 09:15:00 Images from the original note were not included. Venipuncture collection performed by clean technique on the right anticubitus. Total of 1 attempts were made. Slight pressure and a bandage/dressing were applied to the site(s). The patient experienced no complications. The following specimens were processed according to instructions and sent to [facility] laboratories per lab order on 08/04/2024 : LT BLUE SST 3 RED LAV 2 PPT DK GREEN (LiHep) 1Lt.G/1Dk.G DK GREEN (SodH) MORRISSEY DK BLUE (K2) DK BLUE (S) ACD Blood Culture NIPT/NTD [facility] 2024-05-30 08:40:03 Images from the original note were not included. Routed to provider for review. Unable to refill per ambulatory refill guidelines. Notes: Name from pharmacy: Ventolin HFA 108 (90 Base) MCG/ACT Inhalation Aerosol Solution Will file in chart as: VENTOLIN HFA 90 mcg/actuation inhaler Sig: INHALE 2 PUFFS BY MOUTH EVERY 6 HOURS NEEDED FOR WHEEZING FOR SHORTNESS OF BREATH Disp: 18 g Refills: 0 SILVESTRE Start: 05/27/2024 Class: eRX Non-formulary Last ordered: 3 months ago (02/02/2024) by Jen Vizcarra MD Last refill: 05/08/2024 Rx #: [id number] Pulmonology & Allergy: Beta Agonists and Anti-muscarinics Hmjzdd6205/27/2024 02:47 PM Protocol Details Manual Review: If patient not on inhaled steroid and using bronchodilator more than twice weekly for more than 4 weeks or is having a night cough patient should be seen immediately. Manual Review: Staff refilling for allergy - 1 month supply only unless insurance requires a 3 month supply, then 3 month supply approved. Valid encounter within last 12 months To be filled at: [facility] [address] [place] [address] Last Refilled: 05/08/24 Recent Visits Date Type Provider Dept 02/02/24 Office Visit Jen Vizcarra MD [facility] 12/15/23 Office Visit Lina Goldberg FNP [facility] 12/11/23 Office Visit Lina Goldberg FNP [facility] 09/24/23 Office Visit Jen Vizcarra MD [facility] 08/04/23 Office Visit Jen Vizcarra MD [facility] 07/07/23 Office Visit Jen Vizcarra MD [facility] Showing recent visits within past 540 days with a meds authorizing provider and meeting all other requirements Future Appointments Date Type Provider Dept 08/04/24 Appointment Jen Vizcarra MD [facility] Showing future appointments within next 150 days with a meds authorizing provider and meeting all other requirements Lina Man MA [facility] 2024-05-11 10:47:13 Forwarding notification to provider. Kathia Aguiar RN [facility] 2024-05-11 10:18:50 Hello, The Wegovy was not approved by insurance. Per insurance, weight loss medications are plan exclusion and will not be covered. I did leave a voicemail with Ms. Young to go over this determination. Please let me know if there are any questions or concerns. Thank you Marlee Montoya [facility] 2024-05-05 10:44:18 Rx sent, let patient know, and to follow-up as scheduled. T [facility] 2024-05-02 15:18:33 Please sent Wegovy per patient medication has been discussed at patient [facility]AS[facility]. Patient states it will only be covered if its medical necessity. Pharmacy Ariel Marks [facility] 2024-05-02 13:37:39 Attempted to call patient, no answer, LVM to call back. [facility] 2024-04-28 09:58:47 Attempted to call patient, no answer, LVM to call back. [facility] 2024-04-28 09:54:35 Copied from [facility] #[id number]. Topic: Clinical - Order >> April 28, 2024 9:50 AM Patient Parachute Officer wrote: Emerson Young is a 28 year old female calling in requesting a PA for Wegovy. Per pt insurance needs a letter of medical necessity in order to approve. Syed Serrato [facility] 2024-04-04 16:00:00 Images from the original note were not included. Venipuncture collection performed by clean technique on the right anticubitus. Total of 1 attempts were made. Slight pressure and a bandage/dressing were applied to the site(s). The patient experienced no complications. The following specimens were processed according to instructions and sent to [facility] laboratories per lab order on 04/04/2024 : LT BLUE SST 5 RED 1 LAV 1 PPT DK GREEN (LiHep) DK GREEN (SodH) MORRISSEY DK BLUE (K2) DK BLUE (S) ACD Blood Culture NIPT/NTD [facility] 2024-02-29 14:46:08 Spoke to Kaitlynn at [facility] who states fax was sent in error due to claim needed to be run as name brand for Symbicort. Kathia Aguiar RN [facility] 2024-02-29 09:26:05 Images from the original note were not included. Deanna Lutz [facility] 2023-08-13 09:00:00 Formatting of this n ote might be different from the original. Pt said she needed lab work done for dr rosenthal Called clinic and they dont know what lab work to order. Pt left Natalie Heart [facility] 2023-08-11 15:48:00 Formatting of this n ote might be different from the original. Pt states that her insurance company will not cover Wegovy. Pt advised to reach out to her insurance company to see what weight loss medications are covered under her plan. Pt verbalizes understanding. Melanie Forde RN [facility] 2023-08-11 13:32:41 Formatting of this n ote might be different from the original. Patient called to let Dr. Vizcarra know that her insurance will not cover Wegovy. She wants to know if there is a different medication that he wants to prescribe. Erica Hopper [facility] 2023-08-07 08:59:33 Formatting of this n ote might be different from the original. PA submitted via covermymeds. Medication: Albuterol Sulfate HFA 108 ESCAMILLA: [id number] TOMA STARKS MA 08/07/2023 9:00 AM Toma Starks MA [facility] 2023-07-07 11:30:00 Formatting of this n ote is different from the original. Images from the original note were not included. Venipuncture collection performed by clean technique on the right anticubitus. Total of 1 attempts were made. Slight pressure and a bandage/dressing were applied to the site(s). The patient experienced no complications. The following specimens were processed according to instructions and sent to [facility] laboratories per lab order on 07/07/2023 : LT BLUE SST 1 RED LAV 2 PPT DK GREEN (LiHep) DK GREEN (SodH) MORRISSEY DK BLUE (K2) DK BLUE (S) ACD Blood Culture NIPT/NTD Patient has been identified by and was provided with cup, antiseptic towelette, and clean catch instructions. 1 urine specimen(s) sent. Unpreserved 1 Urine Culture Aptima tube Other urine [facility]
[2025-01-15] MEDS ORDERED: ACETAMINOPHEN 500 MG TAB ONE (10:37)
[2025-01-15] MEDS ORDERED: KETOROLAC 30 MG/ML INJ ONE (10:38)
[2025-01-15] MEDS ORDERED: LIDOCAINE 4% PATCH ONE (10:38)
[2025-01-15] MEDS ORDERED: DIAZEPAM 5 MG TABLET ONE (10:38)
--- NOTE | 2025-01-15 11:46 | EDPHYS ---
Physician Documentation [facility] Name: Krishan Damian Age: 29 yrs Sex: Female : 1995 Arrival Date: 01/15/2025 Time: 10:10 Bed 14 Private MD: ED Physician Nixon Lovett HPI: 01/15 10:30 This 29 yrs old Female presents to ER via Ambulatory with complaints of Heart ec2 palpitations. 10:30 Patient arrives today for left upper chest wall pain along with shortness of breath and ec2 palpitations. Symptom onset of earlier this morning. Reports history of asthma, had taken her inhaler and had improvement in her shortness of breath which has not resolved. Patient reports otherwise no vomiting, no diarrhea, denies any other concerns. No history of ACS, no cardiac disease.. Historical: - Allergies: 10:29 NKDA; hb - Home Meds: 10:29 Albuterol Inhl [Active]; hb - PMHx: 10:29 Asthma; Hypertension; hb - PSHx: 10:29 Tubal Ligation; hb - Immunization history:: Adult Immunizations up to date. - Infectious Disease History:: Denies. - Social history:: Smoking status: Patient denies any tobacco usage or history of. ROS: 10:31 Constitutional: as per hpi ec2 Exam: 10:31 Constitutional: GEN: NAD Head: atraumatic Eyes: EOMI Ears: External ears are ec2 normal. CV: regular rate LUNGS: no respiratory distress ABD: non-distended SKIN: no evidence of rashes MSK: no evidence of trauma, reproducible left upper chest wall TTP Vital Signs: 10:27 BP 124 / 101; Pulse 76; Resp 20; Temp 97.8; Pulse Ox 100% on R/A; Weight 132.45 kg; hb Height 5 ft. 2 in. ; Pain 6/10; 11:00 BP 118 / 90; Pulse 68; Resp 16; Pulse Ox 99% ; ko1 11:49 BP 124 / 89; Pulse 66; Resp 15; Pulse Ox 100% ; ko1 10:27 Body Mass Index 53.41 (132.45 kg, 157.48 cm) hb 10:27 Pain Scale: Adult hb MDM: 10:31 Medical Screening Exam initiated ec2 10:31 Data reviewed: vital signs, nurses notes. ED course: Patient arrives today for left ec2 upper chest wall pain. Examination yields reproducible chest wall TTP. Will obtain chest x-ray, EKG and treat the patient symptoms. Suspect MSK pain. Additionally considered other processes such as ACS, arrhythmia. 11:45 ED course: On reassessment patient reports marked improvement in symptoms. Will ec2 discharge home have the patient follow-up PCP. I interpreted the chest x-ray that showed no acute intrathoracic process.. 01/15 10:30 Order name: CXR XRAY; Complete Time: 12:05 ec2 01/15 10:30 Order name: EKG - Nurse/Tech; Complete Time: 10:46 ec2 Administered Medications: 10:44 Drug: Acetaminophen PO 1000 mg PO once Route: PO; ko1 11:16 Follow up: Response: No adverse reaction ko1 10:45 Drug: Lidoderm Topical Patch 5 % (700 mg/patch) 1 patches Topical once; apply to L ko1 trapezius region Route: Topical; Site: affected area; 11:16 Follow up: Response: No adverse reaction ko1 10:45 Drug: Diazepam PO 5 mg PO once Route: PO; ko1 11:16 Follow up: Response: No adverse reaction ko1 10:52 Drug: Ketorolac IM 30 mg IM once Route: IM; Site: left deltoid; ko1 11:28 Follow up: Response: No adverse reaction ko1 Disposition Summary: 01/15/25 11:46 Discharge Ordered Notes: Location: Home ec2 Condition: Stable ec2 Diagnosis - Trapezius Spasm ec2 Followup: ec2 - With: Private Physician - When: - Reason: Re-evaluation by your physician Discharge Instructions: - Discharge Summary Sheet ec2 - Muscle Cramps and Spasms, [id number] ec2 Forms: - Medication Reconciliation Form ec2 - Antibiotic Education ec2 - Prescription Opioid Use ec2 - Patient Portal Instructions ec2 - Leadership Thank You Letter ec2 Prescriptions: - methocarbamol 500 mg Oral tablet - take 2 tablets ORAL route 4 times per day; 30 tablet; Refills: 0, Product ec2 Selection Permitted Signatures: Dispatcher [employer] Angy Beasley RN RN hb Oliver, Kathy, RN RN ko1 Nixon Lovett MD MD ec2 Corrections: (The following items were deleted from the chart) 10:30 10:30 Chest Single View+RAD.RAD.BRZ ordered. EDMS EDMS
--- NOTE | 2025-01-15 11:46 | ER ---
Nurse's Notes [facility] Name: Krishan Damian Age: 29 yrs Sex: Female : 1995 Arrival Date: 01/15/2025 Time: 10:10 Bed 14 Private MD: Diagnosis: Trapezius Spasm Presentation: 01/15 10:27 Chief complaint: Left sided chest pain, SOB, and palpitations since 0500 today. hb Coronavirus screen: At this time, the client does not indicate any symptoms associated with coronavirus-19. Ebola Screen: No symptoms or risks identified at this time. Initial Sepsis Screen: Does the patient meet any 2 criteria? No. Patient's initial sepsis screen is negative. Does the patient have a suspected source of infection? No. Patient's initial sepsis screen is negative. Risk Assessment: Do you want to hurt yourself or someone else? Patient reports no desire to harm self or others. Onset of symptoms was January 15, 2025. 10:27 Method Of Arrival: Ambulatory hb 10:27 Acuity: CRISTHIAN 3 hb Historical: - Allergies: 10:29 NKDA; hb - Home Meds: 10:29 Albuterol Inhl [Active]; hb - PMHx: 10:29 Asthma; Hypertension; hb - PSHx: 10:29 Tubal Ligation; hb - Immunization history:: Adult Immunizations up to date. - Infectious Disease History:: Denies. - Social history:: Smoking status: Patient denies any tobacco usage or history of. Screenin:00 [facility] ED Fall Risk Assessment (Adult) History of falling in the last 3 months, ko1 including since admission No falls in past 3 months (0 pts) Confusion or Disorientation No (0 pts) Intoxicated or Sedated No (0 pts) Impaired Gait No (0 pts) Mobility Assist Device Used No (0 pt) Altered Elimination No (0 pt) Score/Fall Risk Level 0 - 2 = Low Risk Oriented to surroundings, Maintained a safe environment, Educated pt \T\ family on fall prevention, incl call for assistance when getting out of bed, Assessed \T\ reinforced patient's understanding of fall precautions, Hourly rounding (assess needs \T\ fall precautionary measures) done. Abuse screen: Denies threats or abuse. Denies injuries from another. Nutritional screening: No deficits noted. Tuberculosis screening: No symptoms or risk factors identified. Assessment: 11:00 General: Appears in no apparent distress. Behavior is calm, cooperative, appropriate ko1 for age. Pain: Complains of pain in left trapezius. Neuro: No deficits noted. Cardiovascular: Reports palpitations. Respiratory: No deficits noted. GI: No deficits noted. No signs and/or symptoms were reported involving the gastrointestinal system. : No deficits noted. No signs and/or symptoms were reported regarding the genitourinary system. EENT: No deficits noted. No signs and/or symptoms were reported regarding the EENT system. Derm: No deficits noted. No signs and/or symptoms reported regarding the dermatologic system. Musculoskeletal: Reports pain in left trapezius. Vital Signs: 10:27 BP 124 / 101; Pulse 76; Resp 20; Temp 97.8; Pulse Ox 100% on R/A; Weight 132.45 kg; hb Height 5 ft. 2 in. ; Pain 6/10; 11:00 BP 118 / 90; Pulse 68; Resp 16; Pulse Ox 99% ; ko1 11:49 BP 124 / 89; Pulse 66; Resp 15; Pulse Ox 100% ; ko1 10:27 Body Mass Index 53.41 (132.45 kg, 157.48 cm) hb 10:27 Pain Scale: Adult hb ED Course: 10:14 Patient arrived in ED. ec2 10:14 Nixon Lovett MD is Attending Physician. ec2 10:29 Triage completed. hb 10:30 Arm band placed on. hb 10:32 Katharine Terrazas, RN is Primary Nurse. ko1 10:46 Patient has correct armband on for positive identification. Bed in low position. Call ko1 light in reach. Side rails up X 1. Provided Education on: meds. Pulse ox on. NIBP on. Door closed. Noise minimized. Lights dimmed. Pillow given. 10:46 EKG done, by ED staff, reviewed by Nixon Lovett MD. ko1 11:00 No provider procedures requiring assistance completed. Patient did not have IV access ko1 during this emergency room visit. 11:50 CXR XRAY In Process Unspecified. EDMS Administered Medications: 10:44 Drug: Acetaminophen PO 1000 mg PO once Route: PO; ko1 11:16 Follow up: Response: No adverse reaction ko1 10:45 Drug: Lidoderm Topical Patch 5 % (700 mg/patch) 1 patches Topical once; apply to L ko1 trapezius region Route: Topical; Site: affected area; 11:16 Follow up: Response: No adverse reaction ko1 10:45 Drug: Diazepam PO 5 mg PO once Route: PO; ko1 11:16 Follow up: Response: No adverse reaction ko1 10:52 Drug: Ketorolac IM 30 mg IM once Route: IM; Site: left deltoid; ko1 11:28 Follow up: Response: No adverse reaction ko1 Medication: 11:00 VIS not applicable for this client. ko1 Outcome: 11:46 Discharge ordered by . ec2 11:49 Discharged to home ambulatory, with family, ko1 11:49 Condition: stable 11:49 Discharge instructions given to patient, Instructed on discharge instructions, follow up and referral plans. medication usage, Demonstrated understanding of instructions, follow-up care, medications, Prescriptions given X 1, 12:07 Patient left the ED. ko1 Signatures: Dispatcher [employer] Angy Beasley RN RN Katharine Terrazas RN RN ko1 Nixon Lovett MD MD ec2
--- NOTE | 2025-01-15 12:00 | RAD REPORT ---
Procedure: Chest Single View HISTORY: Chest pain COMPARISON: 2022 FINDINGS: The lungs appear clear of acute infiltrate. No significant pleural effusion noted. The heart is normal size. IMPRESSION: No acute abnormality is displayed.
[2025-01-15 12:12] VITALS: TEMP 97.8
[2025-01-15 12:14] VITALS: BP 124/89; O2SAT 100
== END 2025-01-15 12:07 | disposition home or self-care (01) ==
LOC: ER 10:10
DX: M62.838 Other muscle spasm (principal); J45.909 Unspecified asthma, uncomplicated; I10 Essential (primary) hypertension
CPT/HCPCS: 71045; J2003; 96372; 99284